=== PATIENT | male | born 1980 | race American Indian/Alaskan Native ===

== ENCOUNTER 2016-06-16 11:18 | Emergency (ER) | payer SELFPAY ==
[2016-06-16] MEDS ORDERED: HALDOL ONE (11:54)
[2016-06-16] MEDS ORDERED: HALDOL PO ONE (11:58)
[2016-06-16 12:00] LABS: Urine Drugs of Abuse Note Disclamer
--- NOTE | 2016-06-16 12:01 | Emergency Department Report ---
ED Psych HPI - General Chief Complaint: Psych Stated Complaint: PARANOIA/HALLUCINATION Time Seen by Provider: 06/16/16 11:57 Source: patient Mode of arrival: Ambulatory - History of Present Illness MD Complaint: feels depressed, altered mental status -: Gradual Associated Psychiatric Symptoms: suicidal ideation History of same: Yes Quality: constant Improves With: none Worsens With: none Context: recent drug abuse Associated Symptoms: insomnia. denies: headache, shortness of breath, nausea, vomiting, syncope Treatments Prior to Arrival: none If Self Harm: admits thoughts of - Related Data Home Medications Medication Instructions Recorded Confirmed Last Taken No Known Home Medications [No 06/09/15 06/16/16 Unknown Reported Home Medications] Allergies Allergy/AdvReac Type Severity Reaction Status Date / Time No Known Allergies Allergy Verified 06/09/15 00:02 ED Review of Systems ROS: Stated complaint: PARANOIA/HALLUCINATION Other details as noted in HPI Comment: Unobtainable due to pts medical conditions ED Past Medical Hx - Past Medical History Previous Medical History?: Yes Hx Hypertension: Yes (NO MEDS) - Surgical History Past Surgical History?: Yes Hx Appendectomy: Yes - Social History Smoking Status: Current Every Day Smoker Substance Use Type: None - Medications Home Medications: Home Medications Medication Instructions Recorded Confirmed Last Taken Type No Known Home Medications [No 06/09/15 06/16/16 Unknown History Reported Home Medications] ED Physical Exam - General Limitations: No Limitations General appearance: alert, in no apparent distress - Head Head exam: Present: atraumatic, normocephalic - Eye Eye exam: Present: normal appearance - ENT ENT exam: Present: mucous membranes moist - Neck Neck exam: Present: normal inspection - Respiratory Respiratory exam: Present: normal lung sounds bilaterally. Absent: respiratory distress - Cardiovascular Cardiovascular Exam: Present: regular rate, normal rhythm. Absent: systolic murmur, diastolic murmur, rubs, gallop - GI/Abdominal GI/Abdominal exam: Present: soft, normal bowel sounds - Rectal Rectal exam: Present: deferred - Extremities Exam Extremities exam: Present: normal inspection - Back Exam Back exam: Present: normal inspection - Neurological Exam Neurological exam: Present: alert, oriented X3 - Psychiatric Psychiatric exam: Present: depressed, suicidal ideation - Skin Skin exam: Present: warm, dry, intact, normal color. Absent: rash ED Course Vital Signs 06/16/16 11:38 Temperature 99 F Pulse Rate 125 H Respiratory 20 Rate Blood Pressure 165/112 O2 Sat by Pulse 100 Oximetry ED Medical Decision Making - Lab Data Result diagrams: 06/16/16 11:57 06/16/16 11:57 Critical care attestation.: If time is entered above; I have spent that time in minutes in the direct care of this critically ill patient, excluding procedure time. ED Disposition Clinical Impression: Psychoses Disposition: DC/TX PSY HOSP/PSY UNIT Is pt being admited?: No Does the pt Need Aspirin: No Condition: Good
[2016-06-16 12:11] LABS: Bacteria,Urine 1+ /HPF (Negative); Bilirubin,Urine NEG (Negative); Blood,Urine NEG (Negative); Ketones,Urine TR mg/dL (Negative); Leukocyte Esterase,Urine TR (Negative); Mucus,Urine 1+ /HPF; Nitrite,Urine NEG (Negative); Urobilinogen,Urine < 2.0 mg/dL (<2.0)
[2016-06-16 12:20] LABS: Basophils % (Auto) 0.1 % (0.0-1.8); Eosinophils % (Auto) 0.4 % (0.0-4.3); Hematocrit 47.5 % (35.5-45.6); Hemoglobin 15.7 gm/dl (11.8-15.2); Mean Corpuscular HGB Conc 33 % (32-34); Mean Corpuscular Hemoglobin 28 pg (28-32); Mean Corpuscular Volume 84 fl (84-94); Platelet Count 222 K/mm3 (140-440); Red Blood Count 5.68 M/mm3 (3.65-5.03); Red Cell Distribution Width 14.1 % (13.2-15.2); White Blood Count 8.5 K/mm3 (4.5-11.0)
[2016-06-16 12:31] LABS: Anion Gap 20 mmol/L; Blood Urea Nitrogen 16 mg/dL (9-20); Calcium 9.9 mg/dL (8.4-10.2); Carbon Dioxide 24 mmol/L (22-30); Chloride 98.2 mmol/L (98-107); Glucose 103 mg/dL (75-100); Potassium 4.1 mmol/L (3.6-5.0); Sodium 138 mmol/L (137-145)
[2016-06-16] MEDS ORDERED: ATIVAN ONE (13:20)
[2016-06-16] MEDS ORDERED: ATIVAN IM ONE (13:28)
[2016-06-16] MEDS ORDERED: GEODON IM ONE ×2 (13:38→13:46)
[2016-06-16] MEDS ORDERED: WATER FOR INJ (PF) 10 ML ONE (13:39)
--- NOTE | 2016-06-16 17:35 | Consultation ---
History of Present Illness - Reason for Consult Consult date: 06/16/16 Reason for consult: psychosis Medications and Allergies Allergies Allergy/AdvReac Type Severity Reaction Status Date / Time No Known Allergies Allergy Verified 06/09/15 00:02 Home Medications Medication Instructions Recorded Confirmed Last Taken Type No Known Home Medications [No 06/09/15 06/16/16 Unknown History Reported Home Medications] Mental Status Exam - Vital signs Last Vital Signs Temp 99 F 06/16/16 11:38 Pulse 91 H 06/16/16 16:36 Resp 24 06/16/16 16:36 BP 120/70 06/16/16 16:36 Pulse Ox 100 06/16/16 16:36 Results Result Diagrams: 06/16/16 11:57 06/16/16 11:57 Abnormal lab results 06/16/16 06/16/16 06/16/16 Range/Units 11:43 11:57 11:57 RBC 5.68 H (3.65-5.03) M/mm3 Hgb 15.7 H (11.8-15.2) gm/dl Hct 47.5 H (35.5-45.6) % Seg Neutrophils % 70.1 H (40.0-70.0) % Glucose 103 H (75-100) mg/dL Urine WBC (Auto) 19.0 H (0.0-6.0) /HPF All other labs normal. 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 Patient further reported in triage, "they are going to cut my head off and putting a bag." Per medical record review, his UDS is positive for methamphetamines. On clinical examination, patient was sedated due to being given a when necessary recently. Most information this assessment was obtained by reviewing medical records. PSYCHIATRIC REVIEW OF SYSTEMS: Depression: unable to obtain [place]: unable to obtain Psychosis: unable to obtain Anxiety/ OCD/ PTSD: unable to obtain Suicidality: unable to obtain Other Self-Injurious Behavior: unable to obtain Violent/ Aggressive Behavior: unable to obtain CURRENT MEDICATIONS: ( Psychiatric and Non-psychiatric ) Denies ALLERGIES: NKDA PAST PSYCHIATRIC HISTORY: ( Prior Treatment, Precipitating Factors, Diagnosis, and Course of Treatment ) Inpatient: none Outpatient: [facility] Prior Suicide Attempts: Unknown Prior Self-Injurious Behaviors: Unknown PAST PSYCHIATRIC MEDICATION TRIALS: Unknown MEDICAL HISTORY: (Chronic and Acute Illnesses, Current Medical Treatment, Recent Hospitalizations) Denies HISTORY OF TRAUMA/ABUSE: unknown DRUG / ALCOHOL ABUSE HISTORY: Substance: Alcohol use about 26 packs every day Methamphetamine daily Cocaine 8 ball every day Detoxification / Withdrawal: SOCIAL HISTORY: (Educational Level, Employment, Support System, Interpersonal Relationships) Currently employed and on probation. States that he has a warrant out for his arrest due to a violation of his probation FAMILY HISTORY: Psychiatric/Substance Abuse Strong family history of substance abuse MENTAL STATUS EXAM: General Appearance: Dressed in hospital gown Sensorium/Consciousness: Asleep and snoring Eye Contact: Asleep Attitude / Behavior: Asleep Psychomotor & Musculoskeletal Activity: Asleep Mood: Unable to assess Affect: Unable to assess Speech / Language: Unable to assess Thought Processes: Unable to assess Thought Content:Unable to assess Perception: Unable to assess Orientation: Unable to assess Concentration/Attention WORLD backwards: Unable to assess Memory Immediate Digit Span (4-4-7-9-3-1-5): Unable to assess Memory Recent (Objects: Lamp, Umbrella, and Telephone) Patient Response: Unable to assess Memory Remote (Name as many presidents as you can starting with current one and going backwards) Patient Response: Unable to assess Judgment What would you do if you smelled smoke in a crowded movie theater?: Unable to assess Insight: Unable to assess Intelligence Vocabulary, general fund of knowledge, educational level: Unable to assess Capacity of ADLs: Unable to assess STRENGTHS: employed, supportive family PSYCHOSOCIAL AND ENVIRONMENTAL STRESSORS: drug abuses ADMITTING DIAGNOSES Psychiatric: Substance-induced psychotic disorder Rule out: Schizophrenia Bipolar disorder and psychotic features Medical: n/a INITIAL PLAN OF CARE AND TREATMENT GOALS: - Continue 1013 - Reevaluate tomorrow for admission to an acute inpatient psychiatric hospital
[2016-06-17] MEDS ORDERED: PERCOCET 5/325 PO ONE (03:22)
--- NOTE | 2016-06-17 07:24 | XRay Report ---
ROUTINE CHEST, TWO VIEWS: HISTORY: chest pain. The trachea, heart, mediastinal contour, lung hurtado and bony thorax are unremarkable. IMPRESSION: Unremarkable chest x-ray.
--- NOTE | 2016-06-17 07:24 | XRay Report ---
LEFT WRIST, 4 views: HISTORY: Left wrist pain. Routine views demonstrate the carpal bones to be well mineralized with well preserved bony mineralization and interosseous joint spaces. The carpal and adjacent articular bones have normal contours. The surrounding soft tissues are unremarkable. A chronic, healed first metacarpal fracture is suspected. IMPRESSION: Left wrist within normal limits.
--- NOTE | 2016-06-17 09:39 | Progress Note ---
Subjective - Reason for Consult Consult date: 06/17/16 Reason for consult: Psychiatry Evaluation - Chief Complaint Chief complaint: "I need help" This is a 35 year-old undomiciled male who presents to [facility] with psychosis. Today patient is calm and cooperative with a circumstantial thought process. He stated that he's paranoid about someone out to "harm" him. The patient stated that he was off "drugs" for awhile, but relapsed because of bad choices (peer pressure). He stated that he need help for his addiction and don't feel well enough to be discharged at this time. He stated, "I don't know if I want to live." He denies HI's, AVH's, depression, or sleep disturbance. Mental Status Exam - Vital signs Last Vital Signs Temp 98.8 F 06/17/16 08:00 Pulse 87 06/17/16 08:00 Resp 17 06/17/16 08:00 BP 144/109 06/17/16 08:00 Pulse Ox 98 06/17/16 08:00 - Exam Narrative exam: MSE: Appearance: calm, cooperative Behavior: good eye contact Speech: regular rate and tone Mood: "I am fine" Affect: congruent to mood Thought Process: circumstantial Thought Content: denies SI/HI's and AVH's, paranoid Motor Activity: sitting up Cognition: A/Ox3 Insight: fair Judgment: fair Assessment and Plan Impression: This is a 35 year-old undomiciled male who presents to [facility] with psychosis. Today patient is calm and cooperative with a circumstantial thought process. He stated that he's paranoid about someone out to harm him. The patient stated that he was off drugs for awhile, but relapsed because of bad choices (peer pressure). He has a bandage/dressing on his left wrist and stated , "I don't know how that happened." He denies SI's and AVH's. Positive methamphetamines. Patient wants psy inpatient services. Recommendation/Plan: Continue 1013 with placement to inpatient psy services. Start Zyprexa 5 mg PO HS for psychosis and Cogentin 0.5 mg PO HS for EPS prevention. Discussed with patient possible metabolic side effects of Zyprexa.
[2016-06-17] MEDS ORDERED: TYLENOL ONE (12:17)
[2016-06-17] MEDS ORDERED: TYLENOL PO ONE (12:23)
[2016-06-17] MEDS ORDERED: ATIVAN PO PRN (14:26)
[2016-06-17] MEDS ORDERED: COGENTIN PO SCH (22:00)
[2016-06-18 06:43] VITALS: BP 147/86
--- NOTE | 2016-06-18 08:19 | Progress Note ---
Subjective - Reason for Consult Consult date: 06/18/16 Reason for consult: Psychiatry Follow-up - Chief Complaint Chief complaint: "I am ready to go" This is a 35 year-old undomiciled male who presents to [facility] with psychosis. Today patient is calm and cooperative today duriong assessment. He stated that he was ready to leave and go to the inpatient setting. He stated that he still feel paranoid at this time. He denies SI/HI's, AVH's, sleep disturbance, or a poor appetite. He stated feeling a "little down" right now, because of his current situation. Patient denies any side effects from psy medications. Mental Status Exam - Vital signs Last Vital Signs Temp 98 F 06/18/16 06:41 Pulse 80 06/18/16 06:41 Resp 18 06/18/16 06:41 BP 147/86 06/18/16 06:41 Pulse Ox 97 06/18/16 06:41 - Exam Narrative exam: MSE: Appearance: calm, cooperative Behavior: good eye contact Speech: regular rate and tone Mood: "okay" Affect: congruent to mood Thought Process: linear Thought Content: denies SI/HI's and AVH's, paranoid Motor Activity: sitting up Cognition: A/Ox3 Insight: fair Judgment: fair Assessment and Plan Impression: This is a 35 year-old undomiciled male who presents to [facility] with psychosis. Today patient is calm and cooperative today duriong assessment. he stated that he was ready to leave and go to the inpatient setting. He stated that he still feel paranoid at this time. He denies SI/HI's, AVH's, sleep disturbance, or a poor appetite. Positive for amphetamines. Recommendation/Plan: Continue 1013 with placement to inpatient psy services. Continue Zyprexa 5 mg PO HS for psychosis and Cogentin 0.5 mg PO HS for EPS prevention. Discussed with patient possible metabolic side effects of Zyprexa.
== END 2016-06-18 18:36 ==
LOC: ED 11:18 → EEVIPCON 11:18 → ED 06-18 18:36
DX: F29 Unspecified psychosis not due to a substance or known physiological condition (principal); I10 Essential (primary) hypertension; F17.200 Nicotine dependence, unspecified, uncomplicated
CPT/HCPCS: 36415; 71020; 73110; 80048; 80307; 81001; 85025; 96372; 99285; G0480; J2060; J3486; 80320

== ENCOUNTER 2016-06-30 19:43 | Inpatient (IN) | payer OTHER ==
[2016-06-30 20:34] LABS: Urine Drugs of Abuse Note Disclamer
[2016-06-30 20:40] LABS: Basophils % (Auto) 0.4 % (0.0-1.8); Eosinophils % (Auto) 0.1 % (0.0-4.3); Hematocrit 50.7 % (35.5-45.6); Hemoglobin 16.6 gm/dl (11.8-15.2); Mean Corpuscular HGB Conc 33 % (32-34); Mean Corpuscular Hemoglobin 28 pg (28-32); Mean Corpuscular Volume 84 fl (84-94); Platelet Count 252 K/mm3 (140-440); Red Blood Count 6.02 M/mm3 (3.65-5.03); Red Cell Distribution Width 14.1 % (13.2-15.2); White Blood Count 10.2 K/mm3 (4.5-11.0)
[2016-06-30 20:47] LABS: Bacteria,Urine 1+ /HPF (Negative); Bilirubin,Urine NEG (Negative); Blood,Urine NEG (Negative); Ketones,Urine TR mg/dL (Negative); Leukocyte Esterase,Urine TR (Negative); Mucus,Urine 3+ /HPF; Nitrite,Urine NEG (Negative)
[2016-06-30 20:53] LABS: Anion Gap 25 mmol/L; Blood Urea Nitrogen 16 mg/dL (9-20); Calcium 10.6 mg/dL (8.4-10.2); Carbon Dioxide 21 mmol/L (22-30); Chloride 98.7 mmol/L (98-107); Glucose 100 mg/dL (75-100); Potassium 3.5 mmol/L (3.6-5.0); Sodium 141 mmol/L (137-145)
[2016-06-30] MEDS ORDERED: ATIVAN PO ONE (21:02)
[2016-06-30] MEDS ORDERED: ATIVAN IV ONE (21:02)
[2016-06-30] MEDS ORDERED: NACL 0.9% 1000 ML 1,000 ML IV ONE (21:32)
--- NOTE | 2016-06-30 21:45 | Emergency Department Report ---
ED Psych HPI - General Chief Complaint: Chest Pain Stated Complaint: ADAMA ROSS Time Seen by Provider: 06/30/16 21:32 Source: EMS Mode of arrival: Ambulatory - History of Present Illness Initial Comments: Patient is a 35-year-old male with history of hypertension, anxiety, drug abuse presenting today because of left-sided chest pain. Patient states that he uses crystal meth and has been using it significantly recently and has become undomiciled in the last few weeks. Denies using any other drugs. He states that he had a cigarette a stranger approximately 3 hours ago and very soon after he started having left-sided chest pain numbness to his tongue and mouth. His also been feeling very anxious. No significant shortness of breath. No nausea or vomiting or diaphoresis. He also admits to suicidal ideation and has thoughts of shooting himself in the head. He apparently had a gun to his head a few days ago but did not go through with it as he felt he had too much to live for. Also complains of visual hallucinations with the tv in the room spinning in his view. - Related Data Previous Rx's Medication Instructions Recorded Last Taken Type Aspirin EC [Aspirin Enteric Coated 81 mg PO QDAY #30 tablet. 07/04/16 Unknown Rx TAB] AtorvaSTATin [Lipitor] 40 mg PO QHS #30 tablet 07/04/16 Unknown Rx Sertraline [Zoloft] 50 mg PO QDAY #30 tablet 07/04/16 Unknown Rx Allergies Allergy/AdvReac Type Severity Reaction Status Date / Time No Known Allergies Allergy Verified 06/09/15 00:02 ED Review of Systems ROS: Stated complaint: ADAMA ROSS Other details as noted in HPI Comment: All other systems reviewed and negative Constitutional: denies: chills, fever Respiratory: denies: cough Cardiovascular: chest pain Gastrointestinal: denies: vomiting Genitourinary: denies: dysuria Skin: denies: rash Psychiatric: anxiety, depression, visual hallucinations, suicidal thoughts ED Past Medical Hx - Past Medical History Previous Medical History?: Yes Hx Hypertension: Yes (NO MEDS) Additional medical history: schizophrenia, anxiety - Surgical History Past Surgical History?: Yes Hx Appendectomy: Yes - Social History Smoking Status: Current Every Day Smoker Substance Use Type: Cocaine, Methamphetamines, Other - Medications Home Medications: Home Medications Medication Instructions Recorded Confirmed Last Taken Type Aspirin EC [Aspirin Enteric Coated 81 mg PO QDAY #30 tablet. 07/04/16 Unknown Rx TAB] AtorvaSTATin [Lipitor] 40 mg PO QHS #30 tablet 07/04/16 Unknown Rx Sertraline [Zoloft] 50 mg PO QDAY #30 tablet 07/04/16 Unknown Rx ED Physical Exam - General Limitations: No Limitations General appearance: alert, in no apparent distress - ENT ENT exam: Present: normal exam - Respiratory Respiratory exam: Present: normal lung sounds bilaterally. Absent: respiratory distress - Cardiovascular Cardiovascular Exam: Present: normal rhythm, tachycardia - GI/Abdominal GI/Abdominal exam: Present: soft. Absent: distended, tenderness - Neurological Exam Neurological exam: Present: alert, oriented X3 - Psychiatric Psychiatric exam: Present: normal affect ED Course Vital Signs 06/30/16 06/30/16 06/30/16 19:55 20:28 20:33 Temperature 98.6 F Pulse Rate 133 H 122 H Pulse Rate [ Left Arm] Respiratory 26 H 26 H 26 H Rate Respiratory Rate [Left Arm] Blood Pressure 116/62 Blood Pressure [Left Arm] Blood Pressure 150/97 [Left] Blood Pressure [Right] O2 Sat by Pulse 96 99 Oximetry O2 Sat by Pulse Oximetry [Left Arm] 06/30/16 07/01/16 07/01/16 22:01 00:10 08:51 Temperature 97.5 F L Pulse Rate 105 H 92 H 63 Pulse Rate [ Left Arm] Respiratory 18 18 16 Rate Respiratory Rate [Left Arm] Blood Pressure Blood Pressure [Left Arm] Blood Pressure 178/96 148/88 [Left] Blood Pressure 125/85 [Right] O2 Sat by Pulse 99 100 100 Oximetry O2 Sat by Pulse Oximetry [Left Arm] 07/01/16 07/01/16 07/01/16 14:18 14:20 14:26 Temperature Pulse Rate 72 85 77 Pulse Rate [ Left Arm] Respiratory 12 16 Rate Respiratory Rate [Left Arm] Blood Pressure 138/83 Blood Pressure [Left Arm] Blood Pressure [Left] Blood Pressure 138/83 [Right] O2 Sat by Pulse 100 100 Oximetry O2 Sat by Pulse Oximetry [Left Arm] 07/01/16 07/01/16 07/01/16 14:30 14:45 15:00 Temperature Pulse Rate 84 83 77 Pulse Rate [ 86 Left Arm] Respiratory 18 17 13 Rate Respiratory 18 Rate [Left Arm] Blood Pressure 133/88 130/82 138/87 Blood Pressure 130/82 [Left Arm] Blood Pressure [Left] Blood Pressure [Right] O2 Sat by Pulse 99 99 100 Oximetry O2 Sat by Pulse 100 Oximetry [Left Arm] 07/01/16 07/01/16 07/01/16 15:04 15:15 15:30 Temperature Pulse Rate 78 82 Pulse Rate [ 81 Left Arm] Respiratory 13 17 Rate Respiratory 18 Rate [Left Arm] Blood Pressure 143/84 136/86 Blood Pressure 147/89 [Left Arm] Blood Pressure [Left] Blood Pressure [Right] O2 Sat by Pulse 99 100 Oximetry O2 Sat by Pulse 100 Oximetry [Left Arm] 07/01/16 07/01/16 07/01/16 15:45 16:00 16:15 Temperature Pulse Rate 81 81 74 Pulse Rate [ Left Arm] Respiratory 10 L 10 L 11 L Rate Respiratory Rate [Left Arm] Blood Pressure 145/75 144/86 141/84 Blood Pressure [Left Arm] Blood Pressure [Left] Blood Pressure [Right] O2 Sat by Pulse 100 100 100 Oximetry O2 Sat by Pulse Oximetry [Left Arm] 07/01/16 07/01/16 07/01/16 16:30 16:42 16:45 Temperature Pulse Rate 79 71 Pulse Rate [ Left Arm] Respiratory 16 18 16 Rate Respiratory Rate [Left Arm] Blood Pressure 146/85 172/101 Blood Pressure [Left Arm] Blood Pressure [Left] Blood Pressure [Right] O2 Sat by Pulse 100 100 Oximetry O2 Sat by Pulse Oximetry [Left Arm] 07/01/16 07/01/16 07/01/16 17:00 17:15 17:30 Temperature Pulse Rate 69 81 76 Pulse Rate [ Left Arm] Respiratory 12 20 19 Rate Respiratory Rate [Left Arm] Blood Pressure 127/85 131/86 120/87 Blood Pressure [Left Arm] Blood Pressure [Left] Blood Pressure [Right] O2 Sat by Pulse 99 95 93 Oximetry O2 Sat by Pulse Oximetry [Left Arm] 07/01/16 07/01/16 07/01/16 17:45 18:00 18:08 Temperature Pulse Rate 71 81 77 Pulse Rate [ Left Arm] Respiratory 16 19 20 Rate Respiratory Rate [Left Arm] Blood Pressure 140/86 138/103 138/103 Blood Pressure [Left Arm] Blood Pressure [Left] Blood Pressure [Right] O2 Sat by Pulse 100 100 100 Oximetry O2 Sat by Pulse Oximetry [Left Arm] 07/01/16 07/01/16 07/01/16 18:15 18:30 18:45 Temperature Pulse Rate 76 63 76 Pulse Rate [ Left Arm] Respiratory 19 16 19 Rate Respiratory Rate [Left Arm] Blood Pressure 135/87 142/80 134/83 Blood Pressure [Left Arm] Blood Pressure [Left] Blood Pressure [Right] O2 Sat by Pulse 100 100 100 Oximetry O2 Sat by Pulse Oximetry [Left Arm] 07/01/16 07/01/16 07/01/16 19:01 19:15 19:30 Temperature Pulse Rate 66 70 63 Pulse Rate [ Left Arm] Respiratory 15 19 19 Rate Respiratory Rate [Left Arm] Blood Pressure 126/83 126/83 129/86 Blood Pressure [Left Arm] Blood Pressure [Left] Blood Pressure [Right] O2 Sat by Pulse 100 100 100 Oximetry O2 Sat by Pulse Oximetry [Left Arm] 07/01/16 07/01/16 07/01/16 19:45 20:00 20:15 Temperature Pulse Rate Pulse Rate [ Left Arm] Respiratory Rate Respiratory Rate [Left Arm] Blood Pressure 129/86 124/84 124/84 Blood Pressure [Left Arm] Blood Pressure [Left] Blood Pressure [Right] O2 Sat by Pulse 100 100 100 Oximetry O2 Sat by Pulse Oximetry [Left Arm] 07/01/16 07/01/16 07/01/16 20:30 20:45 21:24 Temperature Pulse Rate 74 Pulse Rate [ Left Arm] Respiratory 17 Rate Respiratory Rate [Left Arm] Blood Pressure 123/75 123/75 Blood Pressure [Left Arm] Blood Pressure [Left] Blood Pressure [Right] O2 Sat by Pulse 100 100 100 Oximetry O2 Sat by Pulse Oximetry [Left Arm] ED Medical Decision Making - Lab Data Result diagrams: 07/02/16 03:24 07/02/16 03:24 - Medical Decision Making IV, labs, ekg, cxr, ativan, IVF labs unremarkable cxr negative second troponin negative medically cleared but patient is suicidal so placed on 1013 Critical care attestation.: If time is entered above; I have spent that time in minutes in the direct care of this critically ill patient, excluding procedure time. ED Disposition Clinical Impression: Chest pain, Suicidal ideation, Left-sided weakness Disposition: OP ADMITTED IP TO THIS HOSP Is pt being admited?: No Does the pt Need Aspirin: No Condition: Good
--- NOTE | 2016-06-30 22:41 | XRay Report ---
FINAL REPORT EXAM: XR CHEST 1V AP HISTORY: cp TECHNIQUE: Single-view chest PRIORS: None. FINDINGS: No focal consolidations are seen in the lungs.The cardiomediastinal silhouette is within normal limits for size and contour. No acute osseous abnormality is identified. IMPRESSION: 1. No definite radiographic evidence of acute cardiopulmonary disease.
[2016-06-30] MEDS ORDERED: MOTRIN PO ONE (22:51)
--- NOTE | 2016-07-01 12:26 | Emergency Department Report ---
ED General Adult HPI - General Chief complaint: Psych Stated complaint: ADAMA ROSS Time Seen by Provider: 06/30/16 21:32 Source: patient, RN notes reviewed, old records reviewed Mode of arrival: Ambulatory Limitations: No Limitations - History of Present Illness Initial comments: The patient is now complaining of left arm weakness and left leg weakness, as well as visual field deficit in the left eye. He thinks his symptoms started at 11:15 but is not certain. He denies hematemesis, bright red blood per rectum , recent surgeries. On examination, there is 5/5 strength right upper extremity, right lower extremity, 4/5 strength left upper extremity, left lower extremity, and a lateral visual field cut. There are no facial droop, the tongue is midline, facial sensation is intact to light touch in the bilateral V1, V2, V3 distribution. The patient is also complaining of chest pain. A code stroke is called overhead. A noncontrast CT scan of the brain is interpreted as negative. The patient is interviewed by the stroke neurologist, Dr. Brandy Triana, who recommended TPA. The risks, benefits, alternatives were discussed with the patient. The patient understands that without TPA, he risks permanent disability, weakness, loss of vision in the left eye, lack of quality of life. He is able to articulate these in his own words. The patient is refusing TPA at this time as he is concerned about the risks. He specifically concerned about the risk of a fatal bleed. He is able to articulate this in his own words. He certainly exhibits decision-making capacity regarding the TPA, and there is no family available at this time. Laboratory studies were delayed secondary to technical issues in the lab. Currently awaiting basic metabolic panel. I appreciate that the patient had a normal basic metabolic panel yesterday, but given known history of methamphetamine use, I'm reluctant to empirically give him an IV contrast bolus without repeat basic metabolic panel. Time 0 is being considered 11:15 AM. -: Sudden Location: left, upper extremity, lower extremity Severity scale (0 -10): 5 Consistency: constant Improves with: none Worsens with: none Associated Symptoms: chest pain, weakness - Related Data Home Medications Medication Instructions Recorded Confirmed Last Taken No Known Home Medications [No 06/09/15 06/30/16 Unknown Reported Home Medications] Allergies Allergy/AdvReac Type Severity Reaction Status Date / Time No Known Allergies Allergy Verified 06/09/15 00:02 ED Review of Systems ROS: Stated complaint: MH EVAL Other details as noted in HPI Constitutional: denies: fever Eyes: denies: vision change ENT: denies: epistaxis Respiratory: denies: cough Cardiovascular: chest pain Gastrointestinal: denies: abdominal pain Genitourinary: as per HPI Musculoskeletal: as per HPI Skin: as per HPI Neurological: as per HPI, weakness ED Past Medical Hx - Past Medical History Previous Medical History?: Yes Hx Hypertension: Yes (NO MEDS) Additional medical history: schizophrenia, anxiety - Surgical History Past Surgical History?: Yes Hx Appendectomy: Yes - Social History Smoking Status: Current Every Day Smoker Substance Use Type: Cocaine, Methamphetamines, Other - Medications Home Medications: Home Medications Medication Instructions Recorded Confirmed Last Taken Type No Known Home Medications [No 06/09/15 06/30/16 Unknown History Reported Home Medications] ED Physical Exam - General Limitations: No Limitations, Physical Limitation General appearance: alert, in no apparent distress - Head Head exam: Present: atraumatic, normocephalic - Eye Eye exam: Present: normal appearance, EOMI, other (visual field cut noted left lateral superior, left lateral inferior). Absent: nystagmus - ENT ENT exam: Present: normal exam, normal orophraynx, mucous membranes moist, normal external ear exam - Neck Neck exam: Present: normal inspection, full ROM. Absent: tenderness, meningismus - Respiratory Respiratory exam: Present: normal lung sounds bilaterally. Absent: respiratory distress, wheezes, rales, rhonchi, stridor, chest wall tenderness, accessory muscle use, decreased breath sounds, prolonged expiratory - Cardiovascular Cardiovascular Exam: Present: normal rhythm, tachycardia, normal heart sounds. Absent: systolic murmur, diastolic murmur, rubs, gallop - GI/Abdominal GI/Abdominal exam: Present: soft, normal bowel sounds - Rectal Rectal exam: Present: deferred - Extremities Exam Extremities exam: Present: normal inspection, full ROM, normal capillary refill. Absent: pedal edema, joint swelling, calf tenderness - Back Exam Back exam: Present: normal inspection, full ROM. Absent: tenderness, CVA tenderness (R), CVA tenderness (L), muscle spasm, paraspinal tenderness, vertebral tenderness - Neurological Exam Neurological exam: Present: alert (patient is alert to name, year, month, location.), oriented X3, motor sensory deficit (there is 4/5 strength left upper extremity, left lower extremity. He was decreased sensation to light touch left upper extremity, left lower extremity.), other (5/5 strength right upper extremity, right lower extremity. Sensation intact to light touch right upper extremity, right lower extremity.) - Psychiatric Psychiatric exam: Present: normal affect, normal mood - Skin Skin exam: Present: warm, dry, intact, normal color. Absent: rash ED Course Vital Signs 06/30/16 06/30/16 06/30/16 19:55 20:28 20:33 Temperature 98.6 F Pulse Rate 133 H 122 H Pulse Rate [ Left Arm] Respiratory 26 H 26 H 26 H Rate Respiratory Rate [Left Arm] Blood Pressure 116/62 Blood Pressure [Left Arm] Blood Pressure 150/97 [Left] Blood Pressure [Right] O2 Sat by Pulse 96 99 Oximetry O2 Sat by Pulse Oximetry [Left Arm] 06/30/16 07/01/16 07/01/16 22:01 00:10 08:51 Temperature 97.5 F L Pulse Rate 105 H 92 H 63 Pulse Rate [ Left Arm] Respiratory 18 18 16 Rate Respiratory Rate [Left Arm] Blood Pressure Blood Pressure [Left Arm] Blood Pressure 178/96 148/88 [Left] Blood Pressure 125/85 [Right] O2 Sat by Pulse 99 100 100 Oximetry O2 Sat by Pulse Oximetry [Left Arm] 07/01/16 07/01/16 07/01/16 14:18 14:20 14:26 Temperature Pulse Rate 72 85 77 Pulse Rate [ Left Arm] Respiratory 12 16 Rate Respiratory Rate [Left Arm] Blood Pressure 138/83 Blood Pressure [Left Arm] Blood Pressure [Left] Blood Pressure 138/83 [Right] O2 Sat by Pulse 100 100 Oximetry O2 Sat by Pulse Oximetry [Left Arm] 07/01/16 07/01/16 07/01/16 14:30 14:45 15:00 Temperature Pulse Rate 84 83 77 Pulse Rate [ 86 Left Arm] Respiratory 18 17 13 Rate Respiratory 18 Rate [Left Arm] Blood Pressure 133/88 130/82 138/87 Blood Pressure 130/82 [Left Arm] Blood Pressure [Left] Blood Pressure [Right] O2 Sat by Pulse 99 99 100 Oximetry O2 Sat by Pulse 100 Oximetry [Left Arm] 07/01/16 07/01/1607/01/17 15:04 15:15 15:30 Temperature Pulse Rate 78 82 Pulse Rate [ 81 Left Arm] Respiratory 13 17 Rate Respiratory 18 Rate [Left Arm] Blood Pressure 143/84 136/86 Blood Pressure 147/89 [Left Arm] Blood Pressure [Left] Blood Pressure [Right] O2 Sat by Pulse 99 100 Oximetry O2 Sat by Pulse 100 Oximetry [Left Arm] 07/01/16 07/01/16 07/01/16 15:45 16:00 16:15 Temperature Pulse Rate 81 81 74 Pulse Rate [ Left Arm] Respiratory 10 L 10 L 11 L Rate Respiratory Rate [Left Arm] Blood Pressure 145/75 144/86 141/84 Blood Pressure [Left Arm] Blood Pressure [Left] Blood Pressure [Right] O2 Sat by Pulse 100 100 100 Oximetry O2 Sat by Pulse Oximetry [Left Arm] 07/01/16 07/01/16 07/01/16 16:30 16:42 16:45 Temperature Pulse Rate 79 71 Pulse Rate [ Left Arm] Respiratory 16 18 16 Rate Respiratory Rate [Left Arm] Blood Pressure 146/85 172/101 Blood Pressure [Left Arm] Blood Pressure [Left] Blood Pressure [Right] O2 Sat by Pulse 100 100 Oximetry O2 Sat by Pulse Oximetry [Left Arm] 07/01/16 07/01/16 07/01/16 17:00 17:15 17:30 Temperature Pulse Rate 69 81 76 Pulse Rate [ Left Arm] Respiratory 12 20 19 Rate Respiratory Rate [Left Arm] Blood Pressure 127/85 131/86 120/87 Blood Pressure [Left Arm] Blood Pressure [Left] Blood Pressure [Right] O2 Sat by Pulse 99 95 93 Oximetry O2 Sat by Pulse Oximetry [Left Arm] 07/01/16 07/01/16 07/01/16 17:45 18:00 18:08 Temperature Pulse Rate 71 81 77 Pulse Rate [ Left Arm] Respiratory 16 19 20 Rate Respiratory Rate [Left Arm] Blood Pressure 140/86 138/103 138/103 Blood Pressure [Left Arm] Blood Pressure [Left] Blood Pressure [Right] O2 Sat by Pulse 100 100 100 Oximetry O2 Sat by Pulse Oximetry [Left Arm] 07/01/16 07/01/16 07/01/16 18:15 18:30 18:45 Temperature Pulse Rate 76 63 76 Pulse Rate [ Left Arm] Respiratory 19 16 19 Rate Respiratory Rate [Left Arm] Blood Pressure 135/87 142/80 134/83 Blood Pressure [Left Arm] Blood Pressure [Left] Blood Pressure [Right] O2 Sat by Pulse 100 100 100 Oximetry O2 Sat by Pulse Oximetry [Left Arm] 07/01/16 07/01/16 07/01/16 19:01 19:15 19:30 Temperature Pulse Rate 66 70 63 Pulse Rate [ Left Arm] Respiratory 15 19 19 Rate Respiratory Rate [Left Arm] Blood Pressure 126/83 126/83 129/86 Blood Pressure [Left Arm] Blood Pressure [Left] Blood Pressure [Right] O2 Sat by Pulse 100 100 100 Oximetry O2 Sat by Pulse Oximetry [Left Arm] 07/01/16 07/01/16 07/01/16 19:45 20:00 20:15 Temperature Pulse Rate Pulse Rate [ Left Arm] Respiratory Rate Respiratory Rate [Left Arm] Blood Pressure 129/86 124/84 124/84 Blood Pressure [Left Arm] Blood Pressure [Left] Blood Pressure [Right] O2 Sat by Pulse 100 100 100 Oximetry O2 Sat by Pulse Oximetry [Left Arm] 07/01/16 20:30 Temperature Pulse Rate Pulse Rate [ Left Arm] Respiratory Rate Respiratory Rate [Left Arm] Blood Pressure 123/75 Blood Pressure [Left Arm] Blood Pressure [Left] Blood Pressure [Right] O2 Sat by Pulse 100 Oximetry O2 Sat by Pulse Oximetry [Left Arm] - Reevaluation(s) Reevaluation #1: 07/01/16 13:47 Differential diagnosis: Transient ischemic attack, conversion disorder, carotid dissection, thrombus, multiple sclerosis This is a patient who is currently under 1013 or methamphetamine use, who complained of chest pain and left arm weakness, left leg weakness. He was deemed to be a TPA candidate, but is refusing tPA at this time. Extensive discussion had with the patient regarding risks, benefits, alternatives. The patient is able to endorse that he does not want the medication secondary to the risk of bleeding. In this capacity, the patient is able to articulate the risks, benefits, alternatives. As the patient is refusing this medication, I cannot give it to him as he is adamantly refusing medication, and in my professional opinion exhibits decision-making capacity. There is a delay in acquiring the CT angiogram because there is delay in obtaining basic metabolic panel. 07/01/16 13:49 07/01/16 21:09 07/01/16 21:10 Reevaluation #2: 07/01/16 15:08 The patient was seen and evaluated independently by Rui Shrestha, [facility] , who agreed that patient exhibits decision making capacity. Ultimately, the patient agreed to receive TPA, but because it took him a very long time to make the decision, there was delay in administering TPA was administered at 14:20, the patient was initially adamantly refusing. Delay in TPA secondary to patient refusing medication The noncontrast CT scan of brain was interpreted as negative, and the CT imaging of the head and neck angio was interpreted as negative The patient's blood pressure has been well controlled thus far, a page has been placed to critical care to arrange transfer to the ICU, and the case was presented to the Hospital physician, Dr. Celis graciously accepts the patient to his service. Aspirin will be withheld given the patient just received TPA. Of note, I think aortic dissection is very unlikely, given unremarkable chest x-ray, and normal pulses in 4 extremities. The case is presented to Dr. Rao, the ICU physician, he authorizes triaged to the ICU 07/01/16 15:09 07/01/16 21:09 07/01/16 21:10 ED Medical Decision Making - Lab Data Result diagrams: 07/01/16 12:24 07/01/16 12:25 Vital Signs 06/30/16 06/30/16 06/30/16 19:55 20:28 20:33 Temperature 98.6 F Pulse Rate 133 H 122 H Respiratory 26 H 26 H 26 H Rate Blood Pressure 116/62 Blood Pressure 150/97 [Left] Blood Pressure [Right] O2 Sat by Pulse 96 99 Oximetry 06/30/16 07/01/16 07/01/16 22:01 00:10 08:51 Temperature 97.5 F L Pulse Rate 105 H 92 H 63 Respiratory 18 18 16 Rate Blood Pressure Blood Pressure 178/96 148/88 [Left] Blood Pressure 125/85 [Right] O2 Sat by Pulse 99 100 100 Oximetry Lab Results 06/30/16 06/30/16 06/30/16 Range/Units 20:00 20:00 20:00 WBC 10.2 (4.5-11.0) K/mm3 RBC 6.02 H (3.65-5.03) M/mm3 Hgb 16.6 H (11.8-15.2) gm/dl Hct 50.7 H (35.5-45.6) % MCV 84 (84-94) fl MCH 28 (28-32) pg MCHC 33 (32-34) % RDW 14.1 (13.2-15.2) % Plt Count 252 (140-440) K/mm3 Lymph % (Auto) 32.7 (13.4-35.0) % [place] % (Auto) 8.5 H (0.0-7.3) % Eos % (Auto) 0.1 (0.0-4.3) % Baso % (Auto) 0.4 (0.0-1.8) % Lymph # 3.3 (1.2-5.4) K/mm3 [place] # 0.9 H (0.0-0.8) K/mm3 Eos # 0.0 (0.0-0.4) K/mm3 Baso # 0.0 (0.0-0.1) K/mm3 Seg Neutrophils % 58.3 (40.0-70.0) % Seg Neutrophils # 6.0 (1.8-7.7) K/mm3 PT (12.2-14.9) Sec. INR (0.87-1.13) APTT (24.2-36.6) Sec. Sodium 141 (137-145) mmol/L Potassium 3.5 L (3.6-5.0) mmol/L Chloride 98.7 (98-107) mmol/L Carbon Dioxide 21 L (22-30) mmol/L Anion Gap 25 mmol/L BUN 16 (9-20) mg/dL Creatinine 1.3 (0.8-1.5) mg/dL Estimated GFR > 60 ml/min BUN/Creatinine Ratio 12.30 % Glucose 100 (75-100) mg/dL Calcium 10.6 H (8.4-10.2) mg/dL Troponin T < 0.010 (0.00-0.029) ng/mL Urine Color Yellow (Yellow) Urine Turbidity Clear (Clear) Urine pH 5.0 (5.0-7.0) Ur Specific [place] 1.029 (1.003-1.030) Urine Protein 30 mg/dl (Negative) mg/dL Urine Glucose (UA) Neg (Negative) mg/dL Urine Ketones Tr (Negative) mg/dL Urine Blood Neg (Negative) Urine Nitrite Neg (Negative) Urine Bilirubin Neg (Negative) Urine Urobilinogen 2.0 (<2.0) mg/dL Ur Leukocyte Esterase Tr (Negative) Urine WBC (Auto) 13.0 H (0.0-6.0) /HPF Urine RBC (Auto) 3.0 (0.0-6.0) /HPF U Epithel Cells (Auto) 2.0 (0-13.0) /HPF Urine Bacteria (Auto) 1+ (Negative) /HPF Urine Mucus 3+ /HPF Salicylates (2.8-20.0) mg/dL Urine Opiates Screen Urine Methadone Screen Acetaminophen (10.0-30.0) ug/mL Ur Barbiturates Screen Ur Phencyclidine Scrn Ur Amphetamines Screen U Benzodiazepines Scrn Urine Cocaine Screen U Marijuana (THC) Screen Drugs of Abuse Note Plasma/Serum Alcohol (0-0.07) gm% 06/30/16 06/30/16 06/30/16 Range/Units 20:00 20:00 20:00 WBC (4.5-11.0) K/mm3 RBC (3.65-5.03) M/mm3 Hgb (11.8-15.2) gm/dl Hct (35.5-45.6) % MCV (84-94) fl MCH (28-32) pg MCHC (32-34) % RDW (13.2-15.2) % Plt Count (140-440) K/mm3 Lymph % (Auto) (13.4-35.0) % [place] % (Auto) (0.0-7.3) % Eos % (Auto) (0.0-4.3) % Baso % (Auto) (0.0-1.8) % Lymph # (1.2-5.4) K/mm3 [place] # (0.0-0.8) K/mm3 Eos # (0.0-0.4) K/mm3 Baso # (0.0-0.1) K/mm3 Seg Neutrophils % (40.0-70.0) % Seg Neutrophils # (1.8-7.7) K/mm3 PT (12.2-14.9) Sec. INR (0.87-1.13) APTT (24.2-36.6) Sec. Sodium (137-145) mmol/L Potassium (3.6-5.0) mmol/L Chloride (98-107) mmol/L Carbon Dioxide (22-30) mmol/L Anion Gap mmol/L BUN (9-20) mg/dL Creatinine (0.8-1.5) mg/dL Estimated GFR ml/min BUN/Creatinine Ratio % Glucose (75-100) mg/dL Calcium (8.4-10.2) mg/dL Troponin T (0.00-0.029) ng/mL Urine Color (Yellow) Urine Turbidity (Clear) Urine pH (5.0-7.0) Ur Specific [place] (1.003-1.030) Urine Protein (Negative) mg/dL Urine Glucose (UA) (Negative) mg/dL Urine Ketones (Negative) mg/dL Urine Blood (Negative) Urine Nitrite (Negative) Urine Bilirubin (Negative) Urine Urobilinogen (<2.0) mg/dL Ur Leukocyte Esterase (Negative) Urine WBC (Auto) (0.0-6.0) /HPF Urine RBC (Auto) (0.0-6.0) /HPF U Epithel Cells (Auto) (0-13.0) /HPF Urine Bacteria (Auto) (Negative) /HPF Urine Mucus /HPF Salicylates < 0.3 L (2.8-20.0) mg/dL Urine Opiates Screen Presumptive negative Urine Methadone Screen Presumptive negative Acetaminophen < 15.0 (10.0-30.0) ug/mL Ur Barbiturates Screen Presumptive negative Ur Phencyclidine Scrn Presumptive negative Ur Amphetamines Screen Presumptive positive U Benzodiazepines Scrn Presumptive negative Urine Cocaine Screen Presumptive negative U Marijuana (THC) Screen Presumptive negative Drugs of Abuse Note Disclamer Plasma/Serum Alcohol (0-0.07) gm% 06/30/16 07/01/16 07/01/16 Range/Units 20:00 01:03 12:24 WBC 6.0 (4.5-11.0) K/mm3 RBC 5.86 H (3.65-5.03) M/mm3 Hgb 16.3 H (11.8-15.2) gm/dl Hct 49.2 H (35.5-45.6) % MCV 84 (84-94) fl MCH 28 (28-32) pg MCHC 33 (32-34) % RDW 13.8 (13.2-15.2) % Plt Count 194 (140-440) K/mm3 Lymph % (Auto) (13.4-35.0) % [place] % (Auto) (0.0-7.3) % Eos % (Auto) (0.0-4.3) % Baso % (Auto) (0.0-1.8) % Lymph # (1.2-5.4) K/mm3 [place] # (0.0-0.8) K/mm3 Eos # (0.0-0.4) K/mm3 Baso # (0.0-0.1) K/mm3 Seg Neutrophils % (40.0-70.0) % Seg Neutrophils # (1.8-7.7) K/mm3 PT (12.2-14.9) Sec. INR (0.87-1.13) APTT (24.2-36.6) Sec. Sodium (137-145) mmol/L Potassium (3.6-5.0) mmol/L Chloride (98-107) mmol/L Carbon Dioxide (22-30) mmol/L Anion Gap mmol/L BUN (9-20) mg/dL Creatinine (0.8-1.5) mg/dL Estimated GFR ml/min BUN/Creatinine Ratio % Glucose (75-100) mg/dL Calcium (8.4-10.2) mg/dL Troponin T < 0.010 (0.00-0.029) ng/mL Urine Color (Yellow) Urine Turbidity (Clear) Urine pH (5.0-7.0) Ur Specific [place] (1.003-1.030) Urine Protein (Negative) mg/dL Urine Glucose (UA) (Negative) mg/dL Urine Ketones (Negative) mg/dL Urine Blood (Negative) Urine Nitrite (Negative) Urine Bilirubin (Negative) Urine Urobilinogen (<2.0) mg/dL Ur Leukocyte Esterase (Negative) Urine WBC (Auto) (0.0-6.0) /HPF Urine RBC (Auto) (0.0-6.0) /HPF U Epithel Cells (Auto) (0-13.0) /HPF Urine Bacteria (Auto) (Negative) /HPF Urine Mucus /HPF Salicylates (2.8-20.0) mg/dL Urine Opiates Screen Urine Methadone Screen Acetaminophen (10.0-30.0) ug/mL Ur Barbiturates Screen Ur Phencyclidine Scrn Ur Amphetamines Screen U Benzodiazepines Scrn Urine Cocaine Screen U Marijuana (THC) Screen Drugs of Abuse Note Plasma/Serum Alcohol < 0.01 (0-0.07) gm% 07/01/16 07/01/16 Range/Units 12:25 12:25 WBC (4.5-11.0) K/mm3 RBC (3.65-5.03) M/mm3 Hgb (11.8-15.2) gm/dl Hct (35.5-45.6) % MCV (84-94) fl MCH (28-32) pg MCHC (32-34) % RDW (13.2-15.2) % Plt Count (140-440) K/mm3 Lymph % (Auto) (13.4-35.0) % [place] % (Auto) (0.0-7.3) % Eos % (Auto) (0.0-4.3) % Baso % (Auto) (0.0-1.8) % Lymph # (1.2-5.4) K/mm3 [place] # (0.0-0.8) K/mm3 Eos # (0.0-0.4) K/mm3 Baso # (0.0-0.1) K/mm3 Seg Neutrophils % (40.0-70.0) % Seg Neutrophils # (1.8-7.7) K/mm3 PT 14.9 (12.2-14.9) Sec. INR 1.18 H (0.87-1.13) APTT 27.6 (24.2-36.6) Sec. Sodium 144 (137-145) mmol/L Potassium 3.8 (3.6-5.0) mmol/L Chloride 103.4 (98-107) mmol/L Carbon Dioxide 26 (22-30) mmol/L Anion Gap 18 mmol/L BUN 16 (9-20) mg/dL Creatinine 1.1 (0.8-1.5) mg/dL Estimated GFR > 60 ml/min BUN/Creatinine Ratio 14.54 % Glucose 78 (75-100) mg/dL Calcium 9.6 (8.4-10.2) mg/dL Troponin T (0.00-0.029) ng/mL Urine Color (Yellow) Urine Turbidity (Clear) Urine pH (5.0-7.0) Ur Specific [place] (1.003-1.030) Urine Protein (Negative) mg/dL Urine Glucose (UA) (Negative) mg/dL Urine Ketones (Negative) mg/dL Urine Blood (Negative) Urine Nitrite (Negative) Urine Bilirubin (Negative) Urine Urobilinogen (<2.0) mg/dL Ur Leukocyte Esterase (Negative) Urine WBC (Auto) (0.0-6.0) /HPF Urine RBC (Auto) (0.0-6.0) /HPF U Epithel Cells (Auto) (0-13.0) /HPF Urine Bacteria (Auto) (Negative) /HPF Urine Mucus /HPF Salicylates (2.8-20.0) mg/dL Urine Opiates Screen Urine Methadone Screen Acetaminophen (10.0-30.0) ug/mL Ur Barbiturates Screen Ur Phencyclidine Scrn Ur Amphetamines Screen U Benzodiazepines Scrn Urine Cocaine Screen U Marijuana (THC) Screen Drugs of Abuse Note Plasma/Serum Alcohol (0-0.07) gm% - EKG Data -: EKG Interpreted by [place] EKG shows normal: sinus rhythm, axis, QRS complexes - EKG Data 07/01/16 13:50 normal sinus, 92 bpm, QTC 492 ms, nonspecific abnormality, motion artifact, not morphologically consistent with STEMI. - Radiology Data Radiology results: report reviewed, image reviewed X-ray the chest is negative. Noncontrast CT scan of the brain is negative. As per verbal report radiology, Dr. Wing, CT angiogram of the head and neck negative for thrombus/dissection. Critical Care Time: Yes Critical care time in (mins) excluding proc time.: 90 Critical care attestation.: If time is entered above; I have spent that time in minutes in the direct care of this critically ill patient, excluding procedure time. Critical Care Time: Critical care time includes multiple bedside evaluations, interpretation of laboratory studies, radiology studies, multiple discussions with multiple consulting services, including stroke neurology, hospital medicine, critical care, mental health. This does not include procedure time. ED Disposition Clinical Impression: Chest pain, Suicidal ideation, Left-sided weakness Disposition: OP ADMITTED IP TO THIS HOSP Is pt being admited?: Yes Condition: Good
--- NOTE | 2016-07-01 12:44 | Consultation ---
History of Present Illness - Reason for Consult Consult date: 07/01/16 Reason for consult: Mental Health Evaluation Requesting physician: FRANCISCO PHILLIPS - Chief Complaint Chief complaint: "It's the drugs" - History of Present Psychiatric Illness Patient is a 35-year-old male with history of hypertension, anxiety, drug abuse presenting today because of left-sided chest pain. Today patient is calm and cooperative during assessment. He stated that he get "psychotic" when he uses street drugs. He stated since he was discharged from [facility] he has been on a "meth binge." Patient admits to holding a gun to his head a couple days ago, because he wanted to kill himself. He stated that life is getting the best of him ( from spouse and financial problems). He describe his depression symptoms to be low energy, sad, and hopelessness. He rate his depression 10/10, with 10 being the worse. He was adamant about wanting help for his depression. He denies SI/HI's and AVH's. He stated that his sleep was erratic before coming to [facility]. He denies alcohol consumption (etoh). Patient positive for amphetamines. Medications and Allergies Allergies Allergy/AdvReac Type Severity Reaction Status Date / Time No Known Allergies Allergy Verified 06/09/15 00:02 Home Medications Medication Instructions Recorded Confirmed Last Taken Type No Known Home Medications [No 06/09/15 06/30/16 Unknown History Reported Home Medications] Past psychiatric history - Past Medical History Past Medical History: No medical history Past Surgical History: No surgical history - past Psychiatric treatment and history psychiatric treatment history: Patient been to [facility]. He denies family psy hx. - Social History Social history: other (Live with girlfriend, seperated from ) Mental Status Exam - Vital signs Last Vital Signs Temp 97.5 F L 07/01/16 08:51 Pulse 63 07/01/16 08:51 Resp 16 07/01/16 08:51 BP 125/85 07/01/16 08:51 Pulse Ox 100 07/01/16 08:51 - Exam Narrative exam: ROS (+) depression, (-) psychosis MSE: Appearance: calm, cooperative Behavior: good eye contact Speech: regular rate and tone Mood: "I am fine" Affect: congruent to mood Thought Process: linearl Thought Content: denies SI/HI's and AVH's Motor Activity: lying down in bed Cognition: A/Ox3 Insight: fair Judgment: limited Results Result Diagrams: 07/01/16 12:24 07/01/16 12:25 Abnormal lab results 06/30/16 06/30/16 06/30/16 Range/Units 20:00 20:00 20:00 RBC 6.02 H (3.65-5.03) M/mm3 Hgb 16.6 H (11.8-15.2) gm/dl Hct 50.7 H (35.5-45.6) % [place] % (Auto) 8.5 H (0.0-7.3) % [place] # 0.9 H (0.0-0.8) K/mm3 Potassium 3.5 L (3.6-5.0) mmol/L Carbon Dioxide 21 L (22-30) mmol/L Calcium 10.6 H (8.4-10.2) mg/dL Urine WBC (Auto) 13.0 H (0.0-6.0) /HPF Salicylates (2.8-20.0) mg/dL 06/30/16 Range/Units 20:00 RBC (3.65-5.03) M/mm3 Hgb (11.8-15.2) gm/dl Hct (35.5-45.6) % [place] % (Auto) (0.0-7.3) % [place] # (0.0-0.8) K/mm3 Potassium (3.6-5.0) mmol/L Carbon Dioxide (22-30) mmol/L Calcium (8.4-10.2) mg/dL Urine WBC (Auto) (0.0-6.0) /HPF Salicylates < 0.3 L (2.8-20.0) mg/dL All other labs normal. Assessment and Plan Assessment and plan: Impression: MDD Severe Type/Substance Use DO (Meth). Patient is a 35-year-old male with history of hypertension, anxiety, drug abuse presenting today because of left-sided chest pain. Today patient is calm and cooperative during assessment. He stated that he get "psychotic" when he uses street drugs. He stated since he was discharged from [facility] he has been on a "meth binge." Patient admits to holding a gun to his head a couple days ago, because he wanted to kill himself. He stated that life is getting the best of him ( from spouse and financial problems). INR 1.18. He denies SI/HI's and AVH's. DD: R/O Bipolar Recommendation/Plan: Continue 1013 with possible placement to inpatient or outpatient rehab services. Start Zoloft 50 mg PO daily for depression and Benadryl 25 mg PO HS for sleep.
[2016-07-01 12:47] LABS: INR 1.18 (0.87-1.13); Partial Thromboplastin Time 27.6 Sec. (24.2-36.6)
[2016-07-01 12:48] LABS: Hematocrit 49.2 % (35.5-45.6); Hemoglobin 16.3 gm/dl (11.8-15.2); Mean Corpuscular HGB Conc 33 % (32-34); Mean Corpuscular Hemoglobin 28 pg (28-32); Mean Corpuscular Volume 84 fl (84-94); Platelet Count 194 K/mm3 (140-440); Red Blood Count 5.86 M/mm3 (3.65-5.03); Red Cell Distribution Width 13.8 % (13.2-15.2)
--- NOTE | 2016-07-01 12:51 | Cat Scan Report ---
HEAD CT WITHOUT CONTRAST INDICATION: Left sided weakness, chest pain. 98N. COMPARISON: 06/13/2015 FINDINGS: Noncontrast head CT demonstrates symmetric ventricles and sulci without acute or recent infarct, hemorrhage, mass effect or midline shift. No abnormal extra-axial fluid collections. Posterior fossa structures and basilar cisterns are within normal limits. Clear imaged paranasal sinuses and mastoid air cells. Intact calvarium. Normal scalp soft tissues. CONCLUSION: No acute intracranial CT abnormality, as above. MRI is more sensitive for detection of acute infarct and may be useful for further evaluation in the setting of a focal neurologic deficit. I phoned the above results to Dr. Carreno in the ER, 12:44 PM, 07/01/2016. Thank you for the opportunity to participate in this patient's care.
[2016-07-01] MEDS ORDERED: NACL 0.9% 50 ML ONE (13:23)
[2016-07-01] MEDS ORDERED: ACTIVASE ONE (13:23)
[2016-07-01 13:50] LABS: Anion Gap 18 mmol/L; BUN/Creatinine Ratio 14.54; Blood Urea Nitrogen 16 mg/dL (9-20); Calcium 9.6 mg/dL (8.4-10.2); Carbon Dioxide 26 mmol/L (22-30); Chloride 103.4 mmol/L (98-107); Glucose 78 mg/dL (75-100); Potassium 3.8 mmol/L (3.6-5.0); Sodium 144 mmol/L (137-145)
--- NOTE | 2016-07-01 14:06 | XRay Report ---
PORTABLE CHEST: Chest pain An AP portable view of the chest demonstrates a normal cardiac contour considering the limits of this technique. The lungs are clear with no evidence of infiltrate, fluid or failure. IMPRESSION: Normal portable chest.
[2016-07-01] MEDS ORDERED: ACTIVASE IV ONE ×2 (14:20→14:21)
[2016-07-01] MEDS ORDERED: ATIVAN ONE (14:24)
[2016-07-01] MEDS ORDERED: ATIVAN IV ONE (14:35)
[2016-07-01] MEDS ORDERED: NACL 0.9% IV ONE (15:05)
--- NOTE | 2016-07-01 15:05 | Cat Scan Report ---
CTA HEAD INDICATION: Left-sided weakness, chest pain. COMPARISON: None similar. FINDINGS: CTA of the brain performed following IV contrast. Multiplanar reconstructions, including post processing angiographic reformations obtained. Patent, normal vertebrobasilar system. Patent [place] as well. No hemodynamically significant stenosis or aneurysm identified. Reversal of middle turbinates incidentally noted. Minimal right maxillary sinus mucosal thickening inferiorly. CONCLUSION: Normal CTA of the head, as described. Thank you for the opportunity to participate in this patient's care.
--- NOTE | 2016-07-01 15:08 | Cat Scan Report ---
CTA NECK INDICATION: Left-sided weakness, chest pain. COMPARISON: None similar. FINDINGS: CTA neck performed utilizing IV contrast. Axial, sagittal, coronal and MIP reconstructions obtained. Patent aortic arch and major arising branch vessels, including bilateral carotids and codominant vertebral arteries. No significant atherosclerotic changes at the carotid bulb. Unremarkable thyroid. Clear imaged upper lungs. Patent airway. C5 degenerative changes. CONCLUSION: Normal CTA neck with few incidental findings, as described. Please correlate. Thank you for the opportunity to participate in this patient's care.
--- NOTE | 2016-07-01 15:23 | Event Note ---
Date: 07/01/16 It was determined patient is having a neurological deficit (left side). Patient need TPA administration per the ER Physician. I spoke with the patient to determine his insight for this procedure. He was able to tell me why he need TPA administration and the risk/benefits moving forward. Patient wanted his mother to know what was going on, so I called and spoke with her (Liz). She stated that she would like for her son to be taken care immediately. I told the patient what she said, he stated, "Thanks for telling my mom." Will continue to monitor patient.
--- NOTE | 2016-07-01 15:32 | Admit Criteria Form ---
Admission Criteria Documentation: STROKE: ISCHEMIC Clinical Indications for Admission to Inpatient Care (Place 'X' for any and all applicable criteria): Admission is indicated for ANY ONE of the following(1)(2)(3)(4): [X ]I. Acute stroke Extended stay beyond goal length of stay may be needed for(1)(2) [ ]a) Major deficit or clinical deterioration [ ]b) Hospital-acquired infection (eg, urinary tract infection, pneumonia) [ ]c) Embolic cause of stroke [ ]d) Venous thromboembolism(9) [ ]e) Seizures [ ]f) Bleeding (eg, cerebral) [ ]g) Increased intracranial pressure [ ]h) Comorbidities [ ]i) Surgical intervention The original [facility] content created by [employer] has been revised. The portions of the content which have been revised are identified through the use of italic text or in bold, and [facility] has neither reviewed nor approved the modified material. All other unmodified content is copyright [facility]. Please see references footnoted in the original [facility] edition 2016 Admission Criteria Met: Yes
[2016-07-01] MEDS ORDERED: ZOFRAN IV PRN (16:18)
[2016-07-01] MEDS ORDERED: DULCOLAX PR PRN (16:18)
[2016-07-01] MEDS ORDERED: MILK OF MAGNESIA PO PRN (16:18)
[2016-07-01] MEDS ORDERED: TYLENOL PO PRN (16:18)
[2016-07-01] MEDS ORDERED: TYLENOL PO ONE (16:30)
[2016-07-01] MEDS ORDERED: APRESOLINE IV PRN (16:31)
--- NOTE | 2016-07-01 16:39 | History and Physical Report ---
History of Present Illness Date of examination: 07/01/16 Date of admission: 07/01/16 Chief complaint: Left sided weakness History of present illness: 35-year-old male presented to the ED via ambulance with complaints of passing out at [employer] yesterday while shopping while shopping. Patient reported that he was very dehydrated and didn't know what happened when he woke up he was in the ambulance feeling dizzy, chest pains, short of breath and high blood pressure. Patient reported while he was in the emergency room awaiting for psych evaluation today, he started feeling left-sided weakness. After Head CT, Pt received TPA while in the ED. Patient has a past medical history of hypertension, appendectomy 2001, depression, hallucination due to illicit drug use. Past History Past Medical History: No medical history, hypertension (Hallucination due to ilict drug use, Depression), other (Daily Ilict Drug abuser) Past Surgical History: appendectomy (Appendectomy 2001) Social history: ( but ), smoking, full code, other ( Live with girlfriend, seperated from ) Family history: diabetes, hypertension, other (Lupus) Medications and Allergies Allergies Allergy/AdvReac Type Severity Reaction Status Date / Time No Known Allergies Allergy Verified 06/09/15 00:02 Home Medications Medication Instructions Recorded Confirmed Last Taken Type No Known Home Medications [No 06/09/15 06/30/16 Unknown History Reported Home Medications] Review of Systems Constitutional: weakness (to Left sided extrementies), no weight loss, no weight gain, no fever, no chills Ears, nose, mouth and throat: no headache Cardiovascular: other (Pt complaint of dizziness), no chest pain Respiratory: no cough, no congestion, no wheezing Gastrointestinal: constipation (Last BM 3 days ago), no abdominal pain, no nausea, no vomiting Genitourinary Male: no dysuria, no incontinence Rectal: no pain, no incontinence Musculoskeletal: leg numbness/tingling (Left leg and arm) Integumentary: deferred Neurological: syncope, lack of coordination, no head injury, no headaches, no double vision Psychiatric: hallucinations, depression, no anxiety, no suicidal ideation Exam - Constitutional Vitals: Temp Pulse Resp BP Pulse Ox 97.5 F L 74 11 L 141/84 100 07/01/16 08:51 07/01/16 16:15 07/01/16 16:15 07/01/16 16:15 07/01/16 16:15 General appearance: Present: no acute distress - EENT Eyes: Present: PERRL ENT: hearing intact, clear oral mucosa - Respiratory Respiratory effort: normal Respiratory: bilateral: CTA - Cardiovascular Heart Sounds: Present: S1 & S2. Absent: rub, click - Extremities Extremities: pulses symmetrical, No edema Peripheral Pulses: within normal limits - Abdominal General gastrointestinal: Present: soft, non-tender, non-distended, hypoactive bowel sounds Male genitourinary: Present: deferred - Rectal Rectal Exam: deferred - Integumentary Integumentary: Present: warm, dry - Musculoskeletal Musculoskeletal: left sided weakness - Psychiatric Psychiatric: intact judgment & insight, cooperative - Neurologic Neurologic: moves all extremities (Moves all extremities with left sided weakness) Results - Labs CBC & Chem 7: 07/01/16 12:24 07/01/16 12:25 Labs: Laboratory Last Values WBC 6.0 K/mm3 (4.5-11.0) 07/01/16 12:24 RBC 5.86 M/mm3 (3.65-5.03) H 07/01/16 12:24 Hgb 16.3 gm/dl (11.8-15.2) H 07/01/16 12:24 Hct 49.2 % (35.5-45.6) H 07/01/16 12:24 MCV 84 fl (84-94) 07/01/16 12:24 MCH 28 pg (28-32) 07/01/16 12:24 MCHC 33 % (32-34) 07/01/16 12:24 RDW 13.8 % (13.2-15.2) 07/01/16 12:24 Plt Count 194 K/mm3 (140-440) 07/01/16 12:24 Lymph % (Auto) 32.7 % (13.4-35.0) 06/30/16 20:00 [place] % (Auto) 8.5 % (0.0-7.3) H 06/30/16 20:00 Eos % (Auto) 0.1 % (0.0-4.3) 06/30/16 20:00 Baso % (Auto) 0.4 % (0.0-1.8) 06/30/16 20:00 Lymph # 3.3 K/mm3 (1.2-5.4) 06/30/16 20:00 [place] # 0.9 K/mm3 (0.0-0.8) H 06/30/16 20:00 Eos # 0.0 K/mm3 (0.0-0.4) 06/30/16 20:00 Baso # 0.0 K/mm3 (0.0-0.1) 06/30/16 20:00 Seg Neutrophils % 58.3 % (40.0-70.0) 06/30/16 20:00 Seg Neutrophils # 6.0 K/mm3 (1.8-7.7) 06/30/16 20:00 PT 14.9 Sec. (12.2-14.9) 07/01/16 12:25 INR 1.18 (0.87-1.13) H 07/01/16 12:25 APTT 27.6 Sec. (24.2-36.6) 07/01/16 12:25 Sodium 144 mmol/L (137-145) 07/01/16 12:25 Potassium 3.8 mmol/L (3.6-5.0) 07/01/16 12:25 Chloride 103.4 mmol/L (98-107) 07/01/16 12:25 Carbon Dioxide 26 mmol/L (22-30) 07/01/16 12:25 Anion Gap 18 mmol/L 07/01/16 12:25 BUN 16 mg/dL (9-20) 07/01/16 12:25 Creatinine 1.1 mg/dL (0.8-1.5) 07/01/16 12:25 Estimated GFR > 60 ml/min 07/01/16 12:25 BUN/Creatinine Ratio 14.54 % 07/01/16 12:25 Glucose 78 mg/dL (75-100) 07/01/16 12:25 POC Glucose 87 (70-105) 07/01/16 13:12 Calcium 9.6 mg/dL (8.4-10.2) 07/01/16 12:25 Troponin T < 0.010 ng/mL (0.00-0.029) 07/01/16 01:03 Urine Color Yellow (Yellow) 06/30/16 20:00 Urine Turbidity Clear (Clear) 06/30/16 20:00 Urine pH 5.0 (5.0-7.0) 06/30/16 20:00 Ur Specific [place] 1.029 (1.003-1.030) 06/30/16 20:00 Urine Protein 30 mg/dl mg/dL (Negative) 06/30/16 20:00 Urine Glucose (UA) Neg mg/dL (Negative) 06/30/16 20:00 Urine Ketones Tr mg/dL (Negative) 06/30/16 20:00 Urine Blood Neg (Negative) 06/30/16 20:00 Urine Nitrite Neg (Negative) 06/30/16 20:00 Urine Bilirubin Neg (Negative) 06/30/16 20:00 Urine Urobilinogen 2.0 mg/dL (<2.0) 06/30/16 20:00 Ur Leukocyte Esterase Tr (Negative) 06/30/16 20:00 Urine WBC (Auto) 13.0 /HPF (0.0-6.0) H 06/30/16 20:00 Urine RBC (Auto) 3.0 /HPF (0.0-6.0) 06/30/16 20:00 U Epithel Cells (Auto) 2.0 /HPF (0-13.0) 06/30/16 20:00 Urine Bacteria (Auto) 1+ /HPF (Negative) 06/30/16 20:00 Urine Mucus 3+ /HPF 06/30/16 20:00 Salicylates < 0.3 mg/dL (2.8-20.0) L 06/30/16 20:00 Urine Opiates Screen Presumptive negative 06/30/16 20:00 Urine Methadone Screen Presumptive negative 06/30/16 20:00 Acetaminophen < 15.0 ug/mL (10.0-30.0) 06/30/16 20:00 Ur Barbiturates Screen Presumptive negative 06/30/16 20:00 Ur Phencyclidine Scrn Presumptive negative 06/30/16 20:00 Ur Amphetamines Screen Presumptive positive 06/30/16 20:00 U Benzodiazepines Scrn Presumptive negative 06/30/16 20:00 Urine Cocaine Screen Presumptive negative 06/30/16 20:00 U Marijuana (THC) Screen Presumptive negative 06/30/16 20:00 Drugs of Abuse Note Disclamer 06/30/16 20:00 Plasma/Serum Alcohol < 0.01 gm% (0-0.07) 06/30/16 20:00 - Imaging and Cardiology Chest x-ray: image reviewed (Chest x-ray reported normal findings) CT Scan - head: image reviewed (Reported No acute intracranial ) Assessment and Plan Assessment and plan: 35-year-old male presented to the ED via ambulance with complaints of passing out at [employer] yesterday while shopping while shopping. Patient reported that he was very dehydrated and didn't know what happened when he woke up he was in the ambulance feeling dizzy, chest pains, short of breath and high blood pressure. Patient reported while he was in the emergency room awaiting for psych evaluation today, he started feeling left-sided weakness. After Head CT, Pt received TPA while in the ED. Patient has a past medical history of hypertension, appendectomy 2001, depression, hallucination due to illicit drug use. Patient denies headache, nausea, vomiting, chest pain and abdomen pain. Patient reported he was here at the hospital 3 weeks ago for [address], he was acting crazy and hallucinating. Pt was then transferred to [facility] where he was discharged. Pt is positive for amphetamines. On exam, patient A+Ox3, moves all extremities with left-sided weakness and mild facial left droop when smiling. 1. Ischemic stroke - TPA administered, Teleneurology consult, Head CT, Head and nect CTA, MRI, carotid duplex scan, Echo. Consider statin if LDL is >70 2. Hypertension - Controlled. Hydralazine PRN with target of 165-180, counsellors pt on WT loss and diet management 3. Tobacco Use - Smoking cessation and counsellors provided 4. Hallucation due to Ilict drug use - consult Pysch 5. Depression - Consult Pysch No prophylaxis or aspirin in the first 24hrs s/p aspirin. The high probability of a clinically significant, sudden or life threatening deterioration of the [neurologic] system(s) required my full and direct attention, intervention and personal management. The aggregate critical care time was [31] minutes. This time is in addition to time spent performing reported procedures but includes the following: [x] Data Review and interpretation [x] Patient assessment and monitoring of vital signs [x] Documentation [x] Medication orders and management Advance Directives: No (Full code) VTE prophylaxis?: Mechanical Contraindication Mechanical VTE Prophylaxis: Contraindicated Plan of care discussed with patient/family: Yes
[2016-07-01] MEDS: D5/0.45NS 1,000 ML IV SCH (17:23)
[2016-07-01] MEDS: ZOLOFT PO SCH (21:04)
--- NOTE | 2016-07-01 21:19 | Cat Scan Report ---
FINAL REPORT EXAM: CT HEAD/BRAIN WO CON HISTORY: rule out bleed due to tpa TECHNIQUE: Noncontrast CT axial images of the brain. PRIORS: 13 Jun 2015. FINDINGS: No parenchymal mass, mass effect, hemorrhage, midline shift or hydrocephalus. No evidence of acute cortical infarct. No abnormal, extra-axial fluid or air collection. Osseous calvarium grossly intact. IMPRESSION: 1. No acute intracranial findings.
[2016-07-02] MEDS: BENADRYL PO SCH ×2 (00:44→21:01)
[2016-07-02] MEDS: PERCOCET 5/325 PO PRN ×2 (01:45→12:47)
[2016-07-02 04:48] LABS: Basophils % (Auto) 0.3 % (0.0-1.8); Eosinophils % (Auto) 1.9 % (0.0-4.3); Hematocrit 46.5 % (35.5-45.6); Hemoglobin 15.2 gm/dl (11.8-15.2); Mean Corpuscular HGB Conc 33 % (32-34); Mean Corpuscular Hemoglobin 27 pg (28-32); Mean Corpuscular Volume 84 fl (84-94); Platelet Count 167 K/mm3 (140-440); Red Blood Count 5.57 M/mm3 (3.65-5.03); Red Cell Distribution Width 13.3 % (13.2-15.2); White Blood Count 6.6 K/mm3 (4.5-11.0)
[2016-07-02 04:54] LABS: Anion Gap 16 mmol/L; BUN/Creatinine Ratio 15.55; Blood Urea Nitrogen 14 mg/dL (9-20); Calcium 8.6 mg/dL (8.4-10.2); Carbon Dioxide 24 mmol/L (22-30); Glucose 94 mg/dL (75-100); Potassium 3.7 mmol/L (3.6-5.0); Sodium 138 mmol/L (137-145)
[2016-07-02] MEDS: D5/0.45NS 1,000 ML IV SCH ×2 (08:27→21:02)
[2016-07-02] MEDS: ZOLOFT PO SCH (09:37)
--- NOTE | 2016-07-02 11:49 | Consultation ---
History of Present Illness - Reason for Consult Consult date: 07/02/16 ICU follow up, post TPA Requesting physician: TYLER PASCLA - History of Present Illness 35 y/o male admitted to the ICU as a code stroke status post TPA around 14:21 on yesterday. Per nursing report, had improvement in left sided weakness but I was just informed that he has now worsening left sided weakness. Patient is currently showing left sided weakness. His smile is unequal. He also complains of numbness and tingling in his left arm and left leg. Past History Past Medical History: No medical history, hypertension (Hallucination due to ilict drug use, Depression), other (Daily [employer]lict Drug abuser) Past Surgical History: appendectomy (Appendectomy 2001) Social history: ( but ), smoking, full code, other ( Live with girlfriend, seperated from ) Family history: diabetes, hypertension, other (Lupus) Medications and Allergies Allergies Allergy/AdvReac Type Severity Reaction Status Date / Time No Known Allergies Allergy Verified 06/09/15 00:02 Home Medications Medication Instructions Recorded Confirmed Last Taken Type No Known Home Medications [No 06/09/15 06/30/16 Unknown History Reported Home Medications] Active Meds: Active Medications Acetaminophen (Tylenol) 650 mg PO Q4H PRN PRN Reason: Pain MILD(1-3)/Fever >100.5/CARUSO Bisacodyl (Dulcolax) 10 mg HI QDAY PRN PRN Reason: Constipation unrelieved by MOM Diphenhydramine HCl (Benadryl) 25 mg PO QHS RONIT Last Admin: 07/02/16 00:44 Dose: 25 mg Dextrose/Sodium Chloride (D5/0.45ns) 1,000 mls @ 75 mls/hr IV DIRECT RONIT Last Admin: 07/02/16 08:27 Dose: 75 mls/hr Influenza Virus Vaccine Quadrival (Fluarix Quad [id number](36 Mos+)) 60 mcg IM .ONCE ONE Stop: 07/02/16 12:01 Magnesium Hydroxide (Milk Of Magnesia) 30 ml PO Q4H PRN PRN Reason: Constipation Ondansetron HCl (Zofran) 4 mg IV Q8H PRN PRN Reason: N/V unrelieved by Reglan Oxycodone/Acetaminophen (Percocet 5/325) 1 tab PO Q8H PRN PRN Reason: Pain, Moderate (4-6) Last Admin: 07/02/16 01:45 Dose: 1 tab Sertraline HCl (Zoloft) 50 mg PO QDAY RONIT Last Admin: 07/02/16 09:37 Dose: 50 mg Review of Systems All systems: negative Exam - Constitutional Vitals: Temp Pulse Resp BP Pulse Ox 97.6 F 61 14 131/80 100 07/02/16 08:00 07/02/16 10:51 07/02/16 10:51 07/02/16 10:51 07/02/16 10:51 General appearance: Present: no acute distress, well-nourished, obese - EENT Eyes: Present: PERRL, EOM intact ENT: hearing intact, clear oral mucosa, dentition normal - Neck Neck: Present: supple, normal ROM - Respiratory Respiratory effort: normal Respiratory: bilateral: CTA - Cardiovascular Rhythm: regular Heart Sounds: Present: S1 & S2 - Extremities Extremities: no ischemia, pulses intact - Abdominal General gastrointestinal: Present: soft, non-tender Male genitourinary: Present: deferred - Rectal Rectal Exam: deferred - Integumentary Integumentary: Present: clear, warm, dry - Musculoskeletal Musculoskeletal: left sided weakness - Psychiatric Psychiatric: agitated Results - Labs CBC & Chem 7: 07/02/16 03:24 07/02/16 03:24 Labs: Abnormal lab results 07/02/16 Range/Units 03:24 RBC 5.57 H (3.65-5.03) M/mm3 Hct 46.5 H (35.5-45.6) % MCH 27 L (28-32) pg Lymph % (Auto) 42.3 H (13.4-35.0) % [place] % (Auto) 8.7 H (0.0-7.3) % - Imaging and Cardiology Chest x-ray: image reviewed (clear) CT Scan - head: report reviewed Assessment and Plan 35 y/o male, with syncopal event, admitted as code stroke to ICU status post TPA , also with some SI and committed as a 1013, now with worsening left sided weakness 1. Stat repeat Head CT 2. Per nursing, neuro has been consulted and patient is on the list to be seen 3. BP has been stable, no severe spikes or significantly low drops 4. Await Psych evaluation as well 5. Further clinical status to be determined by results of repeat stat head CT CCT 31 minutes.
[2016-07-02] MEDS ORDERED: FLUARIX QUAD 2016-2017(36 MOS+) IM ONE (12:00)
--- NOTE | 2016-07-02 12:09 | Cat Scan Report ---
CT scan of head without contrast: History: Left-sided weakness. Findings: Ventricles are normal in size and midline in location. No evidence of acute ischemia, hemorrhage or mass. No extra-axial fluid collection. Normal sinuses and mastoid air cells. Impression: Essentially negative CT scan of head.
--- NOTE | 2016-07-02 12:15 | Progress Note ---
Assessment and Plan Assessment and plan: 35-year-old male presented to the ED via ambulance with complaints of passing out at [employer] yesterday while shopping while shopping. Patient reported that he was very dehydrated and didn't know what happened when he woke up he was in the ambulance feeling dizzy, chest pains, short of breath and high blood pressure. Patient reported while he was in the emergency room awaiting for psych evaluation today, he started feeling left-sided weakness. After Head CT, Pt received TPA while in the ED. Patient has a past medical history of hypertension, appendectomy 2001, depression, hallucination due to illicit drug use. Patient denies headache, nausea, vomiting, chest pain and abdomen pain. Patient reported he was here at the hospital 3 weeks ago for [address], he was acting crazy and hallucinating. Pt was then transferred to [facility] where he was discharged. Pt is positive for amphetamines. On exam, patient A+Ox3, moves all extremities with left-sided weakness and mild facial left droop when smiling. 1. Ischemic stroke - TPA administered, neurology consult appreciated, repeat CTH wnl, Fup MRI/MRA head, carotid dopplers, Echo, intitate statin, fup lipid panel, allow permissive htn 2. Hypertension - Controlled. Hydralazine PRN with target of 165-180, counseling director pt on WT loss and diet management 3. Tobacco Use - Smoking cessation and counseling director provided 4. Hallucation due to Ilict drug use - consult Pysch 5. Depression - Consult Pysch 6. Metabolic encephalopathy Due to illicit drug abuse, improving Critical Care time 32 minutes History Interval history: Patient reports that left upper extremity weakness is improving, denied confusion, currently denies suicide ideation Hospitalist Physical - Physical exam Narrative exam: General: Patient appears well in no distress HEENT: MMM, EOMI cardiac: S1-S2 heard lungs: clear to auscultation, abdomen: soft, nontender, nondistended bowel sounds positive extremities: no edema clubbing or cyanosis Skin: no rash or lesion Neuro: Mild left upper extremity hemiparesis Psych: appropriate behavior and mood, cognition intact - Constitutional Vitals: Temp Pulse Resp BP Pulse Ox 97.6 F 61 14 131/80 100 07/02/16 08:00 07/02/16 10:51 07/02/16 10:51 07/02/16 10:51 07/02/16 10:51 General appearance: Present: no acute distress, well-nourished, obese Results - Labs CBC & Chem 7: 07/02/16 03:24 07/02/16 03:24 Labs: Laboratory Last Values WBC 6.6 K/mm3 (4.5-11.0) 07/02/16 03:24 RBC 5.57 M/mm3 (3.65-5.03) H 07/02/16 03:24 Hgb 15.2 gm/dl (11.8-15.2) 07/02/16 03:24 Hct 46.5 % (35.5-45.6) H 07/02/16 03:24 MCV 84 fl (84-94) 07/02/16 03:24 MCH 27 pg (28-32) L 07/02/16 03:24 MCHC 33 % (32-34) 07/02/16 03:24 RDW 13.3 % (13.2-15.2) 07/02/16 03:24 Plt Count 167 K/mm3 (140-440) 07/02/16 03:24 Lymph % (Auto) 42.3 % (13.4-35.0) H 07/02/16 03:24 [place] % (Auto) 8.7 % (0.0-7.3) H 07/02/16 03:24 Eos % (Auto) 1.9 % (0.0-4.3) 07/02/16 03:24 Baso % (Auto) 0.3 % (0.0-1.8) 07/02/16 03:24 Lymph # 2.8 K/mm3 (1.2-5.4) 07/02/16 03:24 [place] # 0.6 K/mm3 (0.0-0.8) 07/02/16 03:24 Eos # 0.1 K/mm3 (0.0-0.4) 07/02/16 03:24 Baso # 0.0 K/mm3 (0.0-0.1) 07/02/16 03:24 Seg Neutrophils % 46.8 % (40.0-70.0) 07/02/16 03:24 Seg Neutrophils # 3.1 K/mm3 (1.8-7.7) 07/02/16 03:24 PT 14.9 Sec. (12.2-14.9) 07/01/16 12:25 INR 1.18 (0.87-1.13) H 07/01/16 12:25 APTT 27.6 Sec. (24.2-36.6) 07/01/16 12:25 Sodium 138 mmol/L (137-145) 07/02/16 03:24 Potassium 3.7 mmol/L (3.6-5.0) 07/02/16 03:24 Chloride 102.0 mmol/L (98-107) 07/02/16 03:24 Carbon Dioxide 24 mmol/L (22-30) 07/02/16 03:24 Anion Gap 16 mmol/L 07/02/16 03:24 BUN 14 mg/dL (9-20) 07/02/16 03:24 Creatinine 0.9 mg/dL (0.8-1.5) 07/02/16 03:24 Estimated GFR > 60 ml/min 07/02/16 03:24 BUN/Creatinine Ratio 15.55 % 07/02/16 03:24 Glucose 94 mg/dL (75-100) 07/02/16 03:24 POC Glucose 87 (70-105) 07/01/16 13:12 Calcium 8.6 mg/dL (8.4-10.2) 07/02/16 03:24 Troponin T < 0.010 ng/mL (0.00-0.029) 07/01/16 01:03 Urine Color Yellow (Yellow) 06/30/16 20:00 Urine Turbidity Clear (Clear) 06/30/16 20:00 Urine pH 5.0 (5.0-7.0) 06/30/16 20:00 Ur Specific [place] 1.029 (1.003-1.030) 06/30/16 20:00 Urine Protein 30 mg/dl mg/dL (Negative) 06/30/16 20:00 Urine Glucose (UA) Neg mg/dL (Negative) 06/30/16 20:00 Urine Ketones Tr mg/dL (Negative) 06/30/16 20:00 Urine Blood Neg (Negative) 06/30/16 20:00 Urine Nitrite Neg (Negative) 06/30/16 20:00 Urine Bilirubin Neg (Negative) 06/30/16 20:00 Urine Urobilinogen 2.0 mg/dL (<2.0) 06/30/16 20:00 Ur Leukocyte Esterase Tr (Negative) 06/30/16 20:00 Urine WBC (Auto) 13.0 /HPF (0.0-6.0) H 06/30/16 20:00 Urine RBC (Auto) 3.0 /HPF (0.0-6.0) 06/30/16 20:00 U Epithel Cells (Auto) 2.0 /HPF (0-13.0) 06/30/16 20:00 Urine Bacteria (Auto) 1+ /HPF (Negative) 06/30/16 20:00 Urine Mucus 3+ /HPF 06/30/16 20:00 Salicylates < 0.3 mg/dL (2.8-20.0) L 06/30/16 20:00 Urine Opiates Screen Presumptive negative 06/30/16 20:00 Urine Methadone Screen Presumptive negative 06/30/16 20:00 Acetaminophen < 15.0 ug/mL (10.0-30.0) 06/30/16 20:00 Ur Barbiturates Screen Presumptive negative 06/30/16 20:00 Ur Phencyclidine Scrn Presumptive negative 06/30/16 20:00 Ur Amphetamines Screen Presumptive positive 06/30/16 20:00 U Benzodiazepines Scrn Presumptive negative 06/30/16 20:00 Urine Cocaine Screen Presumptive negative 06/30/16 20:00 U Marijuana (THC) Screen Presumptive negative 06/30/16 20:00 Drugs of Abuse Note Disclamer 06/30/16 20:00 Plasma/Serum Alcohol < 0.01 gm% (0-0.07) 06/30/16 20:00
--- NOTE | 2016-07-02 14:16 | Consultation ---
History of Present Illness Consult date: 07/02/16 Requesting physician: NITESH DELCID Reason for Consult: stroke s/p tPA Chief complaint: L side numbness/weakness History of present illness: 35 YO M hx HTN/methamphetamine abuse p/w acute onset L sided numbness/weakness on 07/01 @ 11:15. NIHSS 3 in ED and was given tPA @ 14:20. Sx are constant. There are no clear aggravating, relieving or temporal factors. Severity was enough to cause inability to effectively use the left side. Past History Past Medical History: No medical history, hypertension (Hallucination due to ilict drug use, Depression), other (Daily Ilict Drug abuser) Past Surgical History: appendectomy (Appendectomy 2001) Social history: ( but ), smoking, full code, other ( Live with girlfriend, seperated from ) Family history: diabetes, hypertension, other (Lupus) Medications and Allergies Allergies Allergy/AdvReac Type Severity Reaction Status Date / Time No Known Allergies Allergy Verified 06/09/15 00:02 Home Medications Medication Instructions Recorded Confirmed Last Taken Type No Known Home Medications [No 06/09/15 06/30/16 Unknown History Reported Home Medications] Active Meds: Active Medications Acetaminophen (Tylenol) 650 mg PO Q4H PRN PRN Reason: Pain MILD(1-3)/Fever >100.5/CARUSO Bisacodyl (Dulcolax) 10 mg IA QDAY PRN PRN Reason: Constipation unrelieved by MOM Diphenhydramine HCl (Benadryl) 25 mg PO QHS RONIT Last Admin: 07/02/16 00:44 Dose: 25 mg Dextrose/Sodium Chloride (D5/0.45ns) 1,000 mls @ 75 mls/hr IV DIRECT RONIT Last Admin: 07/02/16 08:27 Dose: 75 mls/hr Magnesium Hydroxide (Milk Of Magnesia) 30 ml PO Q4H PRN PRN Reason: Constipation Ondansetron HCl (Zofran) 4 mg IV Q8H PRN PRN Reason: N/V unrelieved by Reglan Oxycodone/Acetaminophen (Percocet 5/325) 1 tab PO Q8H PRN PRN Reason: Pain, Moderate (4-6) Last Admin: 05/23/17 12:47 Dose: 1 tab Sertraline HCl (Zoloft) 50 mg PO QDAY RONIT Last Admin: 07/02/16 09:37 Dose: 50 mg Review of Systems All systems: negative Constitutional: sweats, night sweats, weakness, lethargy Cardiovascular: chest pain, shortness of breath Respiratory: shortness of breath Neurological: weakness, numbness, headaches, gait dysfunction, motor disturbance , sensory deficit, no tingling, no change in speech Physical Examination - Vital Signs Vital Signs: Vital Signs Temp Pulse Resp BP Pulse Ox 98.6 F 133 H 26 H 116/62 96 06/30/16 19:55 06/30/16 19:55 06/30/16 19:55 06/30/16 19:55 06/30/16 19:55 - Constitutional General appearance: comfortable, acutely ill - EENT EENT: Present: ATNC, PERRL, mucous membranes moist, hearing intact, vision intact - Respiratory Respiratory: Present: chest non-tender, normal breath sounds, no respiratory distress - Cardiovascular Cardiovascular: Present: regular rate Extremities: Present: no peripheral edema bilatateraly, no clubbing, cyanosis, no inflammation, no ischemia or petechiae - Gastrointestinal Gastrointestinal: Present: normoactive bowel sounds, soft, non-distended - Integumentary Integumentary: Present: normal - Neurologic Cranial nerve examination: PERRL, EOMI, VFF, V1/V2/V3 grossly intact, tongue midline, intact, intact shoulder shrug, Intact Vestibulo-ocular r, intact corneal reflex, facial droop (on L), normal palatal elevation Speech examination: intact Sensorimotor examination: pronator drift (L UE), hemiparesis (on L mild) Motor examination - right side: 5/5: biceps, triceps, wrist flexion, wrist extension, yarn rewinder, hip flexors, knee extensors, dorsiflexion, toe extension (EHL) , plantarflexion Motor examination - left side: 4/5: biceps, triceps, wrist flexion, wrist extension, yarn rewinder, 5/5: hip flexors, knee extensors, dorsiflexion, toe extension ( EHL), plantarflexion Detailed sensory examination: light touch (diminished on L), temperature ( diminished on L) Reflex and gait examination: intact Reflexes: 3+: ankle (slightly greater on L), bicep, knee, tricep - Musculoskeletal Musculoskeletal: Present: no fluid collection, no pain, normal range of motion - Psychiatric Psychiatric: Present: cooperative Results - Laboratory Findings CBC and BMP: 07/02/16 03:24 07/02/16 03:24 Abnormal Lab Findings: Abnormal Labs 07/02/16 03:24 RBC 5.57 H Hct 46.5 H MCH 27 L Lymph % (Auto) 42.3 H [place] % (Auto) 8.7 H Assessment and Plan 35 YO M hx HTN/active methamphetamine abuse p/w acute onset L sided numbness/ weakness on 07/01 @ 11:15 w/ NIHSS 3 in ED and was given tPA @ 14:20 by tele- neurology. Syn suspicious for acute lacunar stroke d/t meth abuse. CTH x 2 and CTA H/N neg. Plan and Recommendation: 1. Current NIHSS 3 2. Telemetry bed w/ Q4 hour neuro checks 3. Brain imaging: MRI Brain w/o Juan Stroke Protocol 4. TTE to eval for possible cardiac source of embolism 5. Serum Labs: HgA1c, LDL. Stroke in [place] Eval: ESR/CRP, Coags, Toxicology, RPR/VDRL, If Febrile-BCx, LP; Hypercoag screen-Protein C Activity, Protein S Ag , Antithrombin III, Activated Protein C resistance, Factor V Leiden, RVVT or APLAbs, Beta-2 GP Ab, Fibrinogen, Prothrombin gene [id number] mutation, MTHFR C677T , HERB-1, HIV, JENNIE, Lactic Acid, Homocysteine, Cryoglobulin, Complement level, ANCA, Scl-70 Ab, anti-centromere Ab, Anti-Ro (SSA)/Anti-La (SSB), BETH, Antiproteinase 3, Lipoprotein A 6. Permissive HTN for first 24-48 hours: HOB < 30 degrees, isotonic IVF prn and refrain from active Tx of HTN unless BP > 185/105 or pt develops malignant HTN. Can lower MAPs by 10-15% daily to reach goal SBP 120-160 after permissive HTN period 7. Secondary stroke prevention: ASA 325mg Daily x 1 then 81mg QDay & upgrade to full dose statin therapy (Crestor 20mg or 40mg OR Lipitor 40mg or 80mg Daily OR Zocor 40mg QDay) for goal LDL < 70. 8. F/E/N: isotonic IVF prn, prn replete, bedside speech/swallow eval prior to PO intake. 9. DVT Prophylaxis 10. Stroke education, PT/OT/Speech Therapy consults, CM evaluation 11. For any changes in neurologic status, pls obtain STAT CTH w/o contrast and call neurology
[2016-07-02 17:18] LABS: HIV-1 Antigen p24 Non React (Non React); HIVR-1/2 Ab Non React (Non React)
[2016-07-02 17:26] LABS: Erythrocyte Sedimentation Rate 3 mm/Hr (0-20)
[2016-07-02 17:35] LABS: C-Reactive Protein 0.6 mg/dL (0.00-1.30)
--- NOTE | 2016-07-02 17:47 | Consultation ---
History of Present Illness - Reason for Consult Consult date: 07/02/16 Evaluate for Acute IRU - History of Present Illness 35 y.o.male with reported syncopal episode at [facility]; brought to ED via EMS. While awaiting evaluation, pt began having left sided weakness. CT Brain noted to be negative; tPA given. Repeat CT Brain negative x2. Awaiting Brain MRI. On today, pt with limited LLE movement. Consult requested for post-acute placement recommendations. Past History Past Medical History: No medical history, hypertension (Hallucination due to ilict drug use, Depression), other (Daily Ilict Drug abuser) Past Surgical History: appendectomy Social history: ( but ), smoking, other (Live with girlfriend, seperated from ) Family history: diabetes, hypertension, stroke, other (Lupus) Medications and Allergies Allergies Allergy/AdvReac Type Severity Reaction Status Date / Time No Known Allergies Allergy Verified 06/09/15 00:02 Home Medications Medication Instructions Recorded Confirmed Last Taken Type No Known Home Medications [No 06/09/15 06/30/16 Unknown History Reported Home Medications] Active Meds: Active Medications Acetaminophen (Tylenol) 650 mg PO Q4H PRN PRN Reason: Pain MILD(1-3)/Fever >100.5/CARUSO Aspirin (Baby Aspirin) 81 mg PO QDAY RONIT Atorvastatin Calcium (Lipitor) 40 mg PO QHS RONIT Bisacodyl (Dulcolax) 10 mg AR QDAY PRN PRN Reason: Constipation unrelieved by MOM Diphenhydramine HCl (Benadryl) 25 mg PO QHS RONIT Last Admin: 07/02/16 00:44 Dose: 25 mg Dextrose/Sodium Chloride (D5/0.45ns) 1,000 mls @ 75 mls/hr IV DIRECT RONIT Last Admin: 07/02/16 08:27 Dose: 75 mls/hr Magnesium Hydroxide (Milk Of Magnesia) 30 ml PO Q4H PRN PRN Reason: Constipation Ondansetron HCl (Zofran) 4 mg IV Q8H PRN PRN Reason: N/V unrelieved by Reglan Oxycodone/Acetaminophen (Percocet 5/325) 1 tab PO Q8H PRN PRN Reason: Pain, Moderate (4-6) Last Admin: 07/02/16 12:47 Dose: 1 tab Sertraline HCl (Zoloft) 50 mg PO QDAY RONIT Last Admin: 07/02/16 09:37 Dose: 50 mg Review of Systems All systems: negative Ears, nose, mouth and throat: headache Gastrointestinal: no nausea, no vomiting Genitourinary Male: no dysuria Neurological: weakness Exam - Constitutional Vitals: Vital Signs - 12hr 07/02/16 07/02/16 07/02/16 05:51 06:00 06:11 Temperature Pulse Rate 56 L 64 60 Pulse Rate [ 67 Left Arm] Respiratory 18 16 11 L Rate Respiratory 16 Rate [Left Arm] Blood Pressure 109/72 105/72 113/73 Blood Pressure 120/68 [Left Arm] O2 Sat by Pulse 93 95 99 Oximetry O2 Sat by Pulse 100 Oximetry [Left Arm] 07/02/16 07/02/16 07/02/16 06:21 06:30 06:41 Temperature Pulse Rate 76 57 L 61 Pulse Rate [ Left Arm] Respiratory 18 15 13 Rate Respiratory Rate [Left Arm] Blood Pressure 113/73 120/68 120/68 Blood Pressure [Left Arm] O2 Sat by Pulse 99 93 99 Oximetry O2 Sat by Pulse Oximetry [Left Arm] 07/02/16 07/02/16 07/02/16 06:51 07:00 07:11 Temperature Pulse Rate 69 59 L 59 L Pulse Rate [ Left Arm] Respiratory 16 17 15 Rate Respiratory Rate [Left Arm] Blood Pressure 120/68 115/68 115/68 Blood Pressure [Left Arm] O2 Sat by Pulse 97 95 93 Oximetry O2 Sat by Pulse Oximetry [Left Arm] 07/02/16 07/02/16 07/02/16 07:21 07:30 07:41 Temperature Pulse Rate 81 57 L 59 L Pulse Rate [ Left Arm] Respiratory 16 14 15 Rate Respiratory Rate [Left Arm] Blood Pressure 115/68 130/95 115/68 Blood Pressure [Left Arm] O2 Sat by Pulse 97 94 96 Oximetry O2 Sat by Pulse Oximetry [Left Arm] 07/02/16 07/02/16 07/02/16 07:51 08:00 08:11 Temperature 97.6 F Pulse Rate 52 L 70 67 Pulse Rate [ Left Arm] Respiratory 15 13 15 Rate Respiratory Rate [Left Arm] Blood Pressure 115/68 120/85 120/85 Blood Pressure [Left Arm] O2 Sat by Pulse 89 97 99 Oximetry O2 Sat by Pulse Oximetry [Left Arm] 07/02/16 07/02/16 07/02/16 08:21 08:30 08:32 Temperature Pulse Rate 70 56 L Pulse Rate [ Left Arm] Respiratory 16 13 Rate Respiratory Rate [Left Arm] Blood Pressure 120/85 126/73 Blood Pressure [Left Arm] O2 Sat by Pulse 100 99 100 Oximetry O2 Sat by Pulse Oximetry [Left Arm] 07/02/16 07/02/16 07/02/16 08:41 08:51 09:00 Temperature Pulse Rate 61 56 L 57 L Pulse Rate [ Left Arm] Respiratory 15 16 16 Rate Respiratory Rate [Left Arm] Blood Pressure 126/73 126/73 119/88 Blood Pressure [Left Arm] O2 Sat by Pulse 99 99 97 Oximetry O2 Sat by Pulse Oximetry [Left Arm] 07/02/16 07/02/16 07/02/16 09:11 09:21 09:30 Temperature Pulse Rate 67 76 58 L Pulse Rate [ Left Arm] Respiratory 15 16 13 Rate Respiratory Rate [Left Arm] Blood Pressure 119/88 126/73 123/79 Blood Pressure [Left Arm] O2 Sat by Pulse 100 98 98 Oximetry O2 Sat by Pulse Oximetry [Left Arm] 07/02/16 07/02/16 07/02/16 09:41 09:51 10:00 Temperature Pulse Rate 66 54 L 58 L Pulse Rate [ Left Arm] Respiratory 15 14 15 Rate Respiratory Rate [Left Arm] Blood Pressure 123/79 119/88 126/85 Blood Pressure [Left Arm] O2 Sat by Pulse 99 100 97 Oximetry O2 Sat by Pulse Oximetry [Left Arm] 07/02/16 07/02/16 07/02/16 10:11 10:21 10:30 Temperature Pulse Rate 66 53 L 59 L Pulse Rate [ Left Arm] Respiratory 13 18 16 Rate Respiratory Rate [Left Arm] Blood Pressure 126/85 123/79 131/80 Blood Pressure [Left Arm] O2 Sat by Pulse 99 97 96 Oximetry O2 Sat by Pulse Oximetry [Left Arm] 07/02/16 07/02/16 07/02/16 10:41 10:51 11:00 Temperature Pulse Rate 57 L 61 61 Pulse Rate [ Left Arm] Respiratory 16 14 14 Rate Respiratory Rate [Left Arm] Blood Pressure 131/80 131/80 126/83 Blood Pressure [Left Arm] O2 Sat by Pulse 96 100 97 Oximetry O2 Sat by Pulse Oximetry [Left Arm] 07/02/16 07/02/16 07/02/16 11:11 11:21 11:30 Temperature Pulse Rate 58 L 77 79 Pulse Rate [ Left Arm] Respiratory 14 14 10 L Rate Respiratory Rate [Left Arm] Blood Pressure 126/83 126/83 126/93 Blood Pressure [Left Arm] O2 Sat by Pulse 99 100 98 Oximetry O2 Sat by Pulse Oximetry [Left Arm] 07/02/16 07/02/16 07/02/16 11:41 11:57 12:00 Temperature 98.1 F Pulse Rate 67 82 Pulse Rate [ 65 Left Arm] Respiratory 9 L 15 Rate Respiratory 12 Rate [Left Arm] Blood Pressure 126/93 126/93 140/109 Blood Pressure 150/85 [Left Arm] O2 Sat by Pulse 99 100 98 Oximetry O2 Sat by Pulse 100 Oximetry [Left Arm] 07/02/16 07/02/16 07/02/16 12:10 12:21 12:31 Temperature Pulse Rate 74 68 79 Pulse Rate [ Left Arm] Respiratory 13 15 16 Rate Respiratory Rate [Left Arm] Blood Pressure 151/82 151/82 151/82 Blood Pressure [Left Arm] O2 Sat by Pulse 93 98 100 Oximetry O2 Sat by Pulse Oximetry [Left Arm] 07/02/16 07/02/16 07/02/16 12:41 12:51 13:00 Temperature Pulse Rate 73 64 57 L Pulse Rate [ Left Arm] Respiratory 14 15 12 Rate Respiratory Rate [Left Arm] Blood Pressure 123/88 123/88 141/87 Blood Pressure [Left Arm] O2 Sat by Pulse 99 99 93 Oximetry O2 Sat by Pulse Oximetry [Left Arm] 07/02/16 07/02/16 07/02/16 13:11 13:21 13:31 Temperature Pulse Rate 61 57 L 55 L Pulse Rate [ Left Arm] Respiratory 15 13 15 Rate Respiratory Rate [Left Arm] Blood Pressure 141/87 141/87 149/94 Blood Pressure [Left Arm] O2 Sat by Pulse 100 100 95 Oximetry O2 Sat by Pulse Oximetry [Left Arm] 07/02/16 07/02/16 07/02/16 13:41 13:51 14:00 Temperature Pulse Rate 73 67 62 Pulse Rate [ Left Arm] Respiratory 15 15 16 Rate Respiratory Rate [Left Arm] Blood Pressure 149/94 149/94 126/72 Blood Pressure [Left Arm] O2 Sat by Pulse 99 99 95 Oximetry O2 Sat by Pulse Oximetry [Left Arm] 07/02/16 07/02/16 07/02/16 14:11 14:21 14:30 Temperature Pulse Rate 59 L 58 L 59 L Pulse Rate [ Left Arm] Respiratory 14 14 13 Rate Respiratory Rate [Left Arm] Blood Pressure 126/72 126/72 139/87 Blood Pressure [Left Arm] O2 Sat by Pulse 99 99 94 Oximetry O2 Sat by Pulse Oximetry [Left Arm] 07/02/16 07/02/16 07/02/16 14:41 14:51 15:00 Temperature Pulse Rate 55 L 57 L 51 L Pulse Rate [ Left Arm] Respiratory 16 14 13 Rate Respiratory Rate [Left Arm] Blood Pressure 139/87 139/87 145/87 Blood Pressure [Left Arm] O2 Sat by Pulse 100 100 100 Oximetry O2 Sat by Pulse Oximetry [Left Arm] 07/02/16 07/02/16 07/02/16 15:11 15:21 15:30 Temperature Pulse Rate 55 L 53 L 53 L Pulse Rate [ Left Arm] Respiratory 12 11 L 14 Rate Respiratory Rate [Left Arm] Blood Pressure 145/87 145/87 127/90 Blood Pressure [Left Arm] O2 Sat by Pulse 100 99 94 Oximetry O2 Sat by Pulse Oximetry [Left Arm] 07/02/16 07/02/16 07/02/16 15:41 15:51 16:00 Temperature 97.6 F Pulse Rate 54 L 65 Pulse Rate [ Left Arm] Respiratory 12 8 L Rate Respiratory Rate [Left Arm] Blood Pressure 127/90 127/90 Blood Pressure [Left Arm] O2 Sat by Pulse 99 100 Oximetry O2 Sat by Pulse Oximetry [Left Arm] 07/02/16 16:01 Temperature Pulse Rate 57 L Pulse Rate [ Left Arm] Respiratory 12 Rate Respiratory Rate [Left Arm] Blood Pressure 127/90 Blood Pressure [Left Arm] O2 Sat by Pulse 97 Oximetry O2 Sat by Pulse Oximetry [Left Arm] General appearance: no acute distress - EENT Eyes: EOM intact ENT: hearing intact - Neck Neck: supple, normal ROM - Respiratory Respiratory effort: normal Respiratory: bilateral: CTA - Cardiovascular Heart Sounds: Present: S1 & S2 (bradycardic) - Extremities Extremities: No edema - Gastrointestinal General gastrointestinal: Present: soft, non-tender, non-distended, normal bowel sounds - Integumentary Integumentary: Present: clear - Musculoskeletal Musculoskeletal: left sided weakness (decreased effort with LLE movement, 3/5; LUE with good ROM and good strength) - Neurologic Neurologic: CNII-XII intact - Psychiatric Psychiatric: appropriate mood/affect, memory intact, cooperative - Allied health notes Allied health notes reviewed: ST (pureed) - Labs CBC & Chem 7: 07/02/16 03:24 07/02/16 03:24 Labs: Laboratory Results - last 72 hr 07/02/16 07/02/16 07/02/16 03:24 03:24 16:34 WBC 6.6 RBC 5.57 H Hgb 15.2 Hct 46.5 H MCV 84 MCH 27 L MCHC 33 RDW 13.3 Plt Count 167 Lymph % (Auto) 42.[address] [place] % (Auto) 8.7 H Eos % (Auto) 1.9 Baso % (Auto) 0.3 Lymph # 2.8 [place] # 0.6 Eos # 0.1 Baso # 0.0 Seg Neutrophils % 46.8 Seg Neutrophils # 3.1 ESR 3 Fibrinogen Sodium 138 Potassium 3.7 Chloride 102.0 Carbon Dioxide 24 Anion Gap 16 BUN 14 Creatinine 0.9 Estimated GFR > 60 BUN/Creatinine Ratio 15.55 Glucose 94 Lactic Acid Calcium 8.6 C-Reactive Protein LDL Cholesterol Direct HIV 1&2 Antibody Rapid Non react HIV P24 Antigen Non react 07/02/16 07/02/16 07/02/16 16:34 16:34 16:34 WBC RBC Hgb Hct MCV MCH MCHC RDW Plt Count Lymph % (Auto) [place] % (Auto) Eos % (Auto) Baso % (Auto) Lymph # [place] # Eos # Baso # Seg Neutrophils % Seg Neutrophils # ESR Fibrinogen 324 Sodium Potassium Chloride Carbon Dioxide Anion Gap BUN Creatinine Estimated GFR BUN/Creatinine Ratio Glucose Lactic Acid 0.90 Calcium C-Reactive Protein 0.60 LDL Cholesterol Direct 140 H HIV 1&2 Antibody Rapid HIV P24 Antigen Assessment and Plan Patient was assessed and evaluated for Acute Inpatient Rehab Unit. 35 y.o. male with acute left sided weakness, s/p tPA; pending MRI. CT Brain negative for acute CVA. Pt is pending therapy evaluations. Rehab options discussed with pt on today; placement recommendations post discharge to follow. IM for HTN management. Will continue to follow - Patient Problems (1) HTN (hypertension) Current Visit: Yes Status: Acute Qualifiers: Hypertension type: essential hypertension Qualified Code(s): I10 - Essential (primary) hypertension (2) Left-sided weakness Current Visit: Yes Status: Acute (3) Dysphagia Current Visit: Yes Status: Acute Qualifiers: Dysphagia type: pharyngeal phase Qualified Code(s): R13.13 - Dysphagia, pharyngeal phase
[2016-07-02] MEDS: BABY ASPIRIN PO SCH (18:09)
[2016-07-03] MEDS: BABY ASPIRIN PO SCH (09:16)
[2016-07-03] MEDS: ZOLOFT PO SCH (09:16)
[2016-07-03] MEDS ORDERED: SODIUM CHLORIDE FLUSH SYRINGE 10 ML IV PRN (10:37)
--- NOTE | 2016-07-03 10:41 | Progress Note ---
Assessment and Plan Assessment and plan: 35-year-old male presented to the ED via ambulance with complaints of passing out at [email or web address] yesterday while shopping while shopping. Patient reported that he was very dehydrated and didn't know what happened when he woke up he was in the ambulance feeling dizzy, chest pains, short of breath and high blood pressure. Patient reported while he was in the emergency room awaiting for psych evaluation today, he started feeling left-sided weakness. After Head CT, Pt received TPA while in the ED. Patient has a past medical history of hypertension, appendectomy 2001, depression, hallucination due to illicit drug use. Patient denies headache, nausea, vomiting, chest pain and abdomen pain. Patient reported he was here at the hospital 3 weeks ago for [address], he was acting crazy and hallucinating. Pt was then transferred to [facility] where he was discharged. Pt is positive for amphetamines. On exam, patient A+Ox3, moves all extremities with left-sided weakness and mild facial left droop when smiling. 1. Ischemic stroke with infarcts - TPA administered, neurology consult appreciated, repeat CTH wnl, MRI/MRA head and negative, carotid dopplers show no occlusion, Echo unremarkable, continue statin, aspirin, medical management, follow-up CHANG 2. Hypertension - Controlled. Hydralazine PRN with target of 165-180, assessment counselor pt on WT loss and diet management 3. Tobacco Use - Smoking cessation and assessment counselor provided 4. Hallucation due to Ilict drug use - psych input appreciated, continue 1013 5. Depression -psych input appreciated, continue 1013 6. Metabolic encephalopathy Due to illicit drug abuse, improving Critical Care time 32 minutes History Interval history: Patient reports that left upper extremity weakness is improving, denied confusion, currently denies suicide ideation Hospitalist Physical - Physical exam Narrative exam: General: Patient appears well in no distress HEENT: MMM, EOMI cardiac: S1-S2 heard lungs: clear to auscultation, abdomen: soft, nontender, nondistended bowel sounds positive extremities: no edema clubbing or cyanosis Skin: no rash or lesion Neuro: Mild left upper extremity hemiparesis Psych: appropriate behavior and mood, cognition intact - Constitutional Vitals: Temp Pulse Resp BP Pulse Ox 97.7 F 55 L 13 126/82 98 07/03/16 08:00 07/03/16 08:00 07/03/16 08:00 07/03/16 08:00 07/03/16 08:05 General appearance: Present: no acute distress Results - Labs CBC & Chem 7: 07/02/16 03:24 07/02/16 03:24 Labs: Laboratory Last Values WBC 6.6 K/mm3 (4.5-11.0) 07/02/16 03:24 RBC 5.57 M/mm3 (3.65-5.03) H 07/02/16 03:24 Hgb 15.2 gm/dl (11.8-15.2) 07/02/16 03:24 Hct 46.5 % (35.5-45.6) H 07/02/16 03:24 MCV 84 fl (84-94) 07/02/16 03:24 MCH 27 pg (28-32) L 07/02/16 03:24 MCHC 33 % (32-34) 07/02/16 03:24 RDW 13.3 % (13.2-15.2) 07/02/16 03:24 Plt Count 167 K/mm3 (140-440) 07/02/16 03:24 Lymph % (Auto) 42.3 % (13.4-35.0) H 07/02/16 03:24 Rogers % (Auto) 8.7 % (0.0-7.3) H 07/02/16 03:24 Eos % (Auto) 1.9 % (0.0-4.3) 07/02/16 03:24 Baso % (Auto) 0.3 % (0.0-1.8) 07/02/16 03:24 Lymph # 2.8 K/mm3 (1.2-5.4) 07/02/16 03:24 Rogers # 0.6 K/mm3 (0.0-0.8) 07/02/16 03:24 Eos # 0.1 K/mm3 (0.0-0.4) 07/02/16 03:24 Baso # 0.0 K/mm3 (0.0-0.1) 07/02/16 03:24 Seg Neutrophils % 46.8 % (40.0-70.0) 07/02/16 03:24 Seg Neutrophils # 3.1 K/mm3 (1.8-7.7) 07/02/16 03:24 ESR 3 mm/Hr (0-20) 07/02/16 16:34 PT 14.9 Sec. (12.2-14.9) 07/01/16 12:25 INR 1.18 (0.87-1.13) H 07/01/16 12:25 APTT 27.6 Sec. (24.2-36.6) 07/01/16 12:25 Fibrinogen 324 mg/dl (211-480) 07/02/16 16:34 Sodium 138 mmol/L (137-145) 07/02/16 03:24 Potassium 3.7 mmol/L (3.6-5.0) 07/02/16 03:24 Chloride 102.0 mmol/L (98-107) 07/02/16 03:24 Carbon Dioxide 24 mmol/L (22-30) 07/02/16 03:24 Anion Gap 16 mmol/L 07/02/16 03:24 BUN 14 mg/dL (9-20) 07/02/16 03:24 Creatinine 0.9 mg/dL (0.8-1.5) 07/02/16 03:24 Estimated GFR > 60 ml/min 07/02/16 03:24 BUN/Creatinine Ratio 15.55 % 07/02/16 03:24 Glucose 94 mg/dL (75-100) 07/02/16 03:24 POC Glucose 87 (70-105) 07/01/16 13:12 Lactic Acid 0.90 mmol/L (0.7-2.0) 07/02/16 16:34 Calcium 8.6 mg/dL (8.4-10.2) 07/02/16 03:24 Troponin T < 0.010 ng/mL (0.00-0.029) 07/01/16 01:03 C-Reactive Protein 0.60 mg/dL (0.00-1.30) 07/02/16 16:34 LDL Cholesterol Direct 140 mg/dL (50-130) H 07/02/16 16:34 Urine Color Yellow (Yellow) 06/30/16 20:00 Urine Turbidity Clear (Clear) 06/30/16 20:00 Urine pH 5.0 (5.0-7.0) 06/30/16 20:00 Ur Specific [place] 1.029 (1.003-1.030) 06/30/16 20:00 Urine Protein 30 mg/dl mg/dL (Negative) 06/30/16 20:00 Urine Glucose (UA) Neg mg/dL (Negative) 06/30/16 20:00 Urine Ketones Tr mg/dL (Negative) 06/30/16 20:00 Urine Blood Neg (Negative) 06/30/16 20:00 Urine Nitrite Neg (Negative) 06/30/16 20:00 Urine Bilirubin Neg (Negative) 06/30/16 20:00 Urine Urobilinogen 2.0 mg/dL (<2.0) 06/30/16 20:00 Ur Leukocyte Esterase Tr (Negative) 06/30/16 20:00 Urine WBC (Auto) 13.0 /HPF (0.0-6.0) H 06/30/16 20:00 Urine RBC (Auto) 3.0 /HPF (0.0-6.0) 06/30/16 20:00 U Epithel Cells (Auto) 2.0 /HPF (0-13.0) 06/30/16 20:00 Urine Bacteria (Auto) 1+ /HPF (Negative) 06/30/16 20:00 Urine Mucus 3+ /HPF 06/30/16 20:00 Salicylates < 0.3 mg/dL (2.8-20.0) L 06/30/16 20:00 Urine Opiates Screen Presumptive negative 06/30/16 20:00 Urine Methadone Screen Presumptive negative 06/30/16 20:00 Acetaminophen < 15.0 ug/mL (10.0-30.0) 06/30/16 20:00 Ur Barbiturates Screen Presumptive negative 06/30/16 20:00 Ur Phencyclidine Scrn Presumptive negative 06/30/16 20:00 Ur Amphetamines Screen Presumptive positive 06/30/16 20:00 U Benzodiazepines Scrn Presumptive negative 06/30/16 20:00 Urine Cocaine Screen Presumptive negative 06/30/16 20:00 U Marijuana (THC) Screen Presumptive negative 06/30/16 20:00 Drugs of Abuse Note Disclamer 06/30/16 20:00 Plasma/Serum Alcohol < 0.01 gm% (0-0.07) 06/30/16 20:00 HIV 1&2 Antibody Rapid Non react (Non React) 07/02/16 16:34 HIV P24 Antigen Non react (Non React) 07/02/16 16:34
--- NOTE | 2016-07-03 12:56 | Progress Note ---
Assessment and Plan 35 YO M hx HTN/active methamphetamine abuse p/w acute onset L sided numbness/ weakness on 07/01 @ 11:15 w/ NIHSS 3 in ED and was given tPA @ 14:20 by tele- neurology. Syn suspicious for acute lacunar stroke d/t meth abuse. CTH x 2 and CTA H/N neg. LDL 140. Neg serologies for stroke in the young: ESR, HIV, Fibrinogen. Plan and Recommendation: 1. Current NIHSS 3 2. Telemetry bed w/ Q4 hour neuro checks 3. Brain imaging: MRI Brain w/o Juan Stroke Protocol 4. TTE to eval for possible cardiac source of embolism 5. Serum Labs: HgA1c, Stroke in [place] Eval: CRP, Coags, Toxicology, RPR/VDRL, If Febrile-BCx, LP; Hypercoag screen-Protein C Activity, Protein S Ag, Antithrombin III, Activated Protein C resistance, Factor V Leiden, RVVT or APLAbs, Beta-2 GP Ab, Prothrombin gene 61641T mutation, MTHFR C677T, HERB-1, JENNIE , Lactic Acid, Homocysteine, Cryoglobulin, Complement level, ANCA, Scl-70 Ab, anti-centromere Ab, Anti-Ro (SSA)/Anti-La (SSB), BETH, Antiproteinase 3, Lipoprotein A 6. Can lower MAPs by 10-15% daily to reach goal SBP 120-160 7. Secondary stroke prevention: ASA 325mg Daily x 1 then 81mg QDay & upgrade to full dose statin therapy (Crestor 20mg or 40mg OR Lipitor 40mg or 80mg Daily OR Zocor 40mg QDay) for goal LDL < 70. 8. F/E/N: isotonic IVF prn, prn replete, bedside speech/swallow eval prior to PO intake. 9. DVT Prophylaxis 10. Stroke education, PT/OT/Speech Therapy consults, CM evaluation 11. For any changes in neurologic status, pls obtain STAT CTH w/o contrast and call neurology Subjective Date of service: 07/03/16 Principal diagnosis: stroke s/p tpA Interval history: neurologically stable no new complaints Objective - Vital Sign Vital Signs - 12hr 07/03/16 07/03/16 07/03/16 01:00 02:00 03:00 Temperature Pulse Rate 62 52 L 59 L Respiratory 14 16 16 Rate Blood Pressure 120/83 134/73 133/78 O2 Sat by Pulse 97 92 89 Oximetry 07/03/16 07/03/16 07/03/16 04:00 04:15 05:00 Temperature 97.8 F Pulse Rate 53 L 54 L 54 L Respiratory 15 13 Rate Blood Pressure 128/82 126/83 O2 Sat by Pulse 100 93 Oximetry 07/03/16 07/03/16 07/03/16 06:00 07:00 08:00 Temperature 97.7 F Pulse Rate 53 L 59 L 55 L Respiratory 19 15 15 Rate Blood Pressure 138/82 126/78 126/82 O2 Sat by Pulse 92 83 L 100 Oximetry 07/03/16 07/03/16 07/03/16 08:05 09:01 10:00 Temperature Pulse Rate 63 59 L Respiratory 16 15 Rate Blood Pressure 126/82 128/74 O2 Sat by Pulse 98 98 95 Oximetry 07/03/16 07/03/16 11:07 12:00 Temperature Pulse Rate 77 Respiratory 17 Rate Blood Pressure 132/79 O2 Sat by Pulse 98 Oximetry - General Apperance Constitutional: comfortable - EENT EENT: ATNC, PERRL, mucous membranes moist, hearing intact, vision intact - Respiratory Respiratory: chest non-tender, normal breath sounds, no respiratory distress - Cardiovascular Cardiovascular: regular rate Extremities: no peripheral edema bilat, no clubbing, cyanosis, no inflammation, no ischemia or petechiae - Gastrointestinal Gastrointestinal: normoactive bowel sounds, soft, non-distended - Integumentary Integumentary: normal - Neurologic Cranial nerve examination: PERRL, EOMI, VFF, V1/V2/V3 grossly intact, tongue midline, intact, intact shoulder shrug, Intact Vestibulo-ocular r, intact corneal reflex, facial droop (mild on L), normal palatal elevation Speech examination: intact Motor examination - right side: 5/5: biceps, triceps, wrist flexion, wrist extension, mica inspector, hip flexors, knee extensors, dorsiflexion, toe extension (EHL) , plantarflexion Motor examination - left side: 4/5: biceps, triceps, wrist flexion, wrist extension, mica inspector, 5/5: hip flexors, knee extensors, dorsiflexion, toe extension ( EHL), plantarflexion Detailed sensory examination: light touch (decr on L), temperature (decr on L) - Laboratory Findings CBC and BMP: 07/02/16 03:24 07/02/16 03:24 Abnormal Lab Findings: Abnormal Labs 07/02/16 07/02/16 03:24 16:34 RBC 5.57 H Hct 46.5 H MCH 27 L Lymph % (Auto) 42.3 H [place] % (Auto) 8.7 H LDL Cholesterol Direct 140 H
--- NOTE | 2016-07-03 14:08 | Progress Note ---
Assessment and Plan 35 y/o male, with syncopal event, admitted as code stroke to ICU status post TPA , also with some SI and committed as a 1013, now with worsening left sided weakness 1. Follow neurology recs 2. Discussed on Interdisciplinary rounds, asked nursing to speak with IMS about downgrading to floor status as their are no tele beds available 3. BP has been stable, no severe spikes or significantly low drops 4. Will sign off, please reconsult if needed. Subjective Date of service: 07/03/16 Principal diagnosis: stroke s/p tpA Interval history: Remains in ICU but clinically stable. Awaiting MRI. Neurology has seen and left recs. Objective - Constitutional Vitals: Vital Signs - 12hr 07/03/16 07/03/16 07/03/16 03:00 04:00 04:15 Temperature 97.8 F Pulse Rate 59 L 53 L 54 L Respiratory 16 15 Rate Blood Pressure 133/78 128/82 O2 Sat by Pulse 89 100 Oximetry 07/03/16 07/03/16 07/03/16 05:00 06:00 07:00 Temperature Pulse Rate 54 L 53 L 59 L Respiratory 13 19 15 Rate Blood Pressure 126/83 138/82 126/78 O2 Sat by Pulse 93 92 83 L Oximetry 07/03/16 07/03/16 07/03/16 08:00 08:05 09:01 Temperature 97.7 F Pulse Rate 55 L 63 Respiratory 15 16 Rate Blood Pressure 126/82 126/82 O2 Sat by Pulse 100 98 98 Oximetry 07/03/16 07/03/16 07/03/16 10:00 11:07 12:00 Temperature 98.7 F Pulse Rate 59 L 77 Respiratory 15 17 Rate Blood Pressure 128/74 132/79 O2 Sat by Pulse 95 98 Oximetry General appearance: Present: no acute distress - EENT Eyes: PERRL, EOM intact ENT: hearing intact, clear oral mucosa - Neck Neck: supple, normal ROM - Respiratory Respiratory effort: normal Respiratory: bilateral: CTA - Cardiovascular Rhythm: regular Heart Sounds: Present: S1 & S2 Extremities: no ischemia - Gastrointestinal General gastrointestinal: Present: soft, non-tender, other (obese) Rectal Exam: deferred - Genitourinary Male genitourinary: deferred - Musculoskeletal Musculoskeletal: left sided weakness - Labs CBC & Chem 7: 07/02/16 03:24 07/02/16 03:24 Labs: Abnormal lab results 07/02/16 Range/Units 16:34 LDL Cholesterol Direct 140 H (50-130) mg/dL
--- NOTE | 2016-07-03 14:20 | Magnetic Resonance Report ---
MRI of the brain without contrast. History: Stroke. Procedure: Routine brain protocol without contrast. Findings: The posterior fossa is normal. The ventricles are normal in size and contour. There are no masses or extra-axial collections. The morelos-white matter junction is normal. There is no restricted diffusion. The pituitary gland appears normal. The visualized extracranial structures appear normal. Impression: Negative study.
--- NOTE | 2016-07-03 14:21 | Magnetic Resonance Report ---
MRA of the [place]. History: Stroke. Procedure: 3-D [id number] technique. Findings: The visualized internal carotid arteries are normal. Anterior and middle cerebral arteries and branches appear normal. The posterior circulation is unremarkable. The vertebral arteries are symmetrical. There is no evidence of AVM or aneurysm. Impression: Normal study.
--- NOTE | 2016-07-03 16:00 | Event Note ---
Date: 07/03/16 IPR F/U. CVA work-up negative; independent with PT for bed mobility, transfers , and gait. No further therapy needs at this time. Ongoing medical management for primary team. Will sign off.
[2016-07-03] MEDS ORDERED: ZOCOR PO SCH (22:00)
[2016-07-03] MEDS: LOVENOX SUB-Q SCH (22:12)
[2016-07-03] MEDS: BENADRYL PO SCH (22:12)
--- NOTE | 2016-07-04 10:34 | Discharge Summary ---
Providers - Providers Date of Admission: 07/01/16 15:14 Attending physician: NITESH DELCID MD 07/01/16 16:18 Consult to Physician [CONS] Routine Consulting Provider: VAIBHAV JARAMILLO Reason For Exam: Ischemic stroke Place consult to:: Dr. Vaibhav Jaramillo Notified:: Dr. Vaibhav Jaramillo Phone number called:: [phone] Was contact made?: Yes If yes, spoke with:: Dr. Vaibhav Jaramillo Time called:: 07:45 07/01/16 16:30 Speech Therapy Evaluation and Treat [CONS] Routine Reason For Exam: Ischemic Stroke 07/02/16 12:15 Consult Acute Rehabilitation [CONS] Routine Consulting Provider: SID JONES Reason For Exam: Stroke with left hemiparesis 07/02/16 12:16 Physical Therapy Evaluation and Treat [CONS] Routine Comment: Reason For Exam: debility 07/03/16 10:38 Occupational Therapy Evaluate and Treat [CONS] Routine Comment: Reason For Exam: Neuro deficits Physical Therapy Evaluation and Treat [CONS] Routine Comment: Reason For Exam: Neuro deficits 07/04/16 09:05 Consult to Mental Health [CONS] Stat Reason For Exam: drug overdose Place consult to:: Juan Notified:: yes Phone number called:: [phone] Was contact made?: Yes If yes, spoke with:: Juan Time called:: 09:12 Primary care physician: LEAK DETECTOR Hospitalization Condition: Good Hospital course: 35-year-old male presented to the ED via ambulance with complaints of passing out at [facility] yesterday while shopping while shopping. Patient reported that he was very dehydrated and didn't know what happened when he woke up he was in the ambulance feeling dizzy, chest pains, short of breath and high blood pressure. Patient reported while he was in the emergency room awaiting for psych evaluation today, he started feeling left-sided weakness. After Head CT, Pt received TPA while in the ED. Patient has a past medical history of hypertension, appendectomy 2001, depression, hallucination due to illicit drug use. Patient denies headache, nausea, vomiting, chest pain and abdomen pain. Patient reported he was here at the hospital 3 weeks ago for [address], he was acting crazy and hallucinating. Pt was then transferred to [facility] where he was discharged. Pt is positive for amphetamines. On initial exam, he was oriented 3, and had mild left upper extremity weakness and mild left facial droop After receiving TPA in the ED, he was admitted to the ICU. He was observed, had frequent neuro checks, repeat CT of his head did not show any hemorrhage. He went on to have an extensive workup that was mostly negative but did show hyperlipidemia. He was put on appropriate blood pressure medications, and statins. He was counseled about cessation of tobacco, he was also seen by mental health who deemed him to not be a risk to himself, difficulty 1013 was discontinued. He went on to have a repeat MRI of his head and neck with contrast, this also failed to show any lesions in brain or spinal. His medications were optimized prior to discharge. with regards to dysphasia he was seen by speech therapy who recommended a pured diet. Discharge diagnoses 1. Acute ischemic stroke with infarct 2. htn 3. Tobacco abuse 4. Polysubstance abuse 5. Toxic encephalopathy 6. Dysphasia 7. Major depression 8. Hyperlipidemia Disposition: DC/TX PSY HOSP/PSY UNIT Time spent for discharge: 35 minutes Core Measure Documentation - Palliative Care Palliative Care/ Comfort Measures: Not Applicable - Core Measures Any of the following diagnoses?: stroke - Stroke Discharge Requirements Statin for LDL = or >70 mg/dl on DC: Yes Anticoag for atrial fib/atrial flutter: Not Applicable Antithrombotic for ischemic stroke: No Reason for no antithrombotic on DC: Not Indicated Exam - Constitutional Vitals: Temp Pulse Resp BP Pulse Ox 98.3 F 66 18 130/76 100 07/04/16 07:53 07/03/16 19:50 07/03/16 19:50 07/03/16 19:54 07/03/16 15:41 General appearance: Present: no acute distress, well-nourished - EENT Eyes: Present: PERRL ENT: hearing intact, clear oral mucosa - Neck Neck: Present: supple, normal ROM - Respiratory Respiratory effort: normal Respiratory: bilateral: CTA - Cardiovascular Heart Sounds: Present: S1 & S2. Absent: rub, click - Extremities Extremities: pulses symmetrical, No edema Peripheral Pulses: within normal limits - Abdominal General gastrointestinal: Present: soft, non-tender, non-distended, normal bowel sounds Male genitourinary: Present: normal - Integumentary Integumentary: Present: clear, warm, dry - Musculoskeletal Musculoskeletal: gait normal, strength equal bilaterally - Psychiatric Psychiatric: appropriate mood/affect, intact judgment & insight - Neurologic Neurologic: CNII-XII intact, focal deficits (mild right upper extremity weakness ), moves all extremities Plan Follow up with: PRIMARY CARE,MD [Primary Care Provider] - 3-5 Days Prescriptions: AtorvaSTATin [Lipitor] 40 mg PO QHS #30 tablet Aspirin EC [Aspirin Enteric Coated TAB] 81 mg PO QDAY #30 tablet. Sertraline [Zoloft] 50 mg PO QDAY #30 tablet
--- NOTE | 2016-07-04 10:57 | Progress Note ---
Assessment and Plan 35 YO M hx HTN/active methamphetamine abuse p/w acute onset L sided numbness/ weakness on 07/01 @ 11:15 w/ NIHSS 3 in ED and was given tPA @ 14:20 by tele- neurology. Syn initially suspicious for acute lacunar stroke d/t meth abuse but MRI Brain no acute findings. Aslo CTH x 2, CDs, TTE, CTA H/N neg. LDL 140. Neg serologies for stroke in the young: ESR, HIV, Fibrinogen. I am now more suspicious for complicated migraine as pt does affirm R hemicranial pulsatile CARUOS. Plan and Recommendation: 1. Current NIHSS 3 2. Telemetry bed w/ Q4 hour neuro checks 3. Repeat Brain imaging: MRI Brain w/o Juan Stroke Protocol & MRI C-spine to r/ o other lesions 4. Serum Labs: HgA1c, Stroke in [place] Eval: CRP, Coags, Toxicology, RPR/VDRL, If Febrile-BCx, LP; Hypercoag screen-Protein C Activity, Protein S Ag, Antithrombin III, Activated Protein C resistance, Factor V Leiden, RVVT or APLAbs, Beta-2 GP Ab, Prothrombin gene 22535M mutation, MTHFR C677T, HERB-1, JENNIE , Lactic Acid, Homocysteine, Cryoglobulin, Complement level, ANCA, Scl-70 Ab, anti-centromere Ab, Anti-Ro (SSA)/Anti-La (SSB), BETH, Antiproteinase 3, Lipoprotein A 5. Can lower MAPs by 10-15% daily to reach goal SBP 120-160 6. ? stroke prevention: ASA 325mg Daily x 1 then 81mg QDay & upgrade to full dose statin therapy (Crestor 20mg or 40mg OR Lipitor 40mg or 80mg Daily OR Zocor 40mg QDay) for goal LDL < 70. 7. For migraine: Decadron 4mg IV BID x up to 6 doses and VPA 500mg IV Q8hrs x 3 doses, Fioricet prn 8. F/E/N: isotonic IVF prn, prn replete, bedside speech/swallow eval prior to PO intake. 9. DVT Prophylaxis 10. Stroke education, PT/OT/Speech Therapy consults, CM evaluation 11. For any changes in neurologic status, pls obtain STAT CTH w/o contrast and call neurology Subjective Date of service: 05/25/17 Principal diagnosis: ? stroke s/p tpA Interval history: no new complaints. does affirm CARUSO. MRIs neg. Objective - Vital Sign Vital Signs - 12hr 07/04/16 07:53 Temperature 98.3 F - General Apperance Constitutional: comfortable - EENT EENT: ATNC, PERRL, mucous membranes moist, hearing intact, vision intact - Respiratory Respiratory: chest non-tender, normal breath sounds, no respiratory distress - Cardiovascular Cardiovascular: regular rate Extremities: no peripheral edema bilat, no clubbing, cyanosis, no inflammation, no ischemia or petechiae - Gastrointestinal Gastrointestinal: normoactive bowel sounds, soft, non-distended - Integumentary Integumentary: normal - Neurologic Cranial nerve examination: PERRL, EOMI, V1/V2/V3 grossly intact, face symmetric , tongue midline, intact, intact shoulder shrug, Intact Vestibulo-ocular r, intact corneal reflex, facial droop (mild on L) Speech examination: intact Motor examination - right side: 5/5: biceps, triceps, wrist flexion, wrist extension, creative services specialist, hip flexors, knee extensors, dorsiflexion, toe extension (EHL) , plantarflexion Motor examination - left side: 4/5: biceps, triceps, wrist flexion, wrist extension, creative services specialist, 5/5: hip flexors, knee extensors, dorsiflexion, toe extension ( EHL), plantarflexion Detailed sensory examination: light touch (decr on L) Reflex and gait examination: intact Reflexes: 2+: ankle, bicep, knee, tricep - Musculoskeletal Musculoskeletal: no fluid collection, no pain, normal range of motion - Psychiatric Psychiatric: mood/affect appropriate, cooperative - Laboratory Findings CBC and BMP: 07/02/16 03:24 07/02/16 03:24 Abnormal Lab Findings: Abnormal Labs 07/02/16 07/02/16 07/04/16 03:24 16:34 04:04 RBC 5.57 H Hct 46.5 H MCH 27 L Lymph % (Auto) 42.3 H [place] % (Auto) 8.7 H LDL Cholesterol Direct 140 H HDL Cholesterol 27 L
[2016-07-04] MEDS: ZOLOFT PO SCH (11:07)
[2016-07-04] MEDS: BABY ASPIRIN PO SCH (11:07)
--- NOTE | 2016-07-04 13:14 | Event Note ---
Date: 07/04/16 Patient remains in unit secondary to need for One-to-one status. No acute critical issues.
--- NOTE | 2016-07-04 15:47 | Progress Note ---
Subjective - Reason for Consult Consult date: 07/04/16 Reason for consult: Psychiatry Follow-up - Chief Complaint Chief complaint: "I am good" Patient is a 35-year-old male with history of hypertension, anxiety, drug abuse presenting today because of left-sided chest pain. Today patient is calm and cooperative during assessment. He stated that he would like to get off the drugs. He stated that his drug use is driving away his immediate family, and that has to stop. Upon arrival to his room, patient was working with PT. His left hand rack pusher was moderate, much better than previous assessment on 07/01/2016. He denies SI/HI's, AVH's, or depression symptoms. Mental Status Exam - Vital signs Last Vital Signs Temp 98.5 F 07/04/16 12:00 Pulse 66 07/03/16 19:50 Resp 18 07/03/16 19:50 BP 130/76 07/03/16 19:54 Pulse Ox 97 07/04/16 12:38 - Exam Narrative exam: MSE: Appearance: calm, cooperative Behavior: good eye contact Speech: regular rate and tone Mood: "I am so much better" Affect: congruent to mood Thought Process: linear Thought Content: denies SI/HI's and AVH's Motor Activity: lying down in bed Cognition: A/Ox3 Insight: fair Judgment: fair Assessment and Plan Impression: Patient is a 35-year-old male with history of hypertension, anxiety , drug abuse presenting today because of left-sided chest pain. Today patient is calm and cooperative during assessment. He stated that he would like to get off the drugs. He stated that his drug use is driving away his immediate family , and that has to stop. Patient is no threat to self. Patient will reside with his mother Liz once discharged. Recommendation/Plan: Rescind 1013. Outpatient rehab/psy services information given to patient for his local area ([facility]). Discussed with the patient how important for him to stay of the stay street drugs. Also, we discussed generalized coping skills with patient. Continue Zoloft 50 mg PO daily for depression.
--- NOTE | 2016-07-04 17:38 | Progress Note ---
Assessment and Plan Assessment and plan: 35-year-old male presented to the ED via ambulance with complaints of passing out at [employer] yesterday while shopping while shopping. Patient reported that he was very dehydrated and didn't know what happened when he woke up he was in the ambulance feeling dizzy, chest pains, short of breath and high blood pressure. Patient reported while he was in the emergency room awaiting for psych evaluation today, he started feeling left-sided weakness. After Head CT, Pt received TPA while in the ED. Patient has a past medical history of hypertension, appendectomy 2001, depression, hallucination due to illicit drug use. Patient denies headache, nausea, vomiting, chest pain and abdomen pain. Patient reported he was here at the hospital 3 weeks ago for [address], he was acting crazy and hallucinating. Pt was then transferred to [facility] where he was discharged. Pt is positive for amphetamines. On exam, patient A+Ox3, moves all extremities with left-sided weakness and mild facial left droop when smiling. 1. Ischemic stroke with infarcts - TPA administered, neurology consult appreciated, repeat CTH wnl, MRI/MRA head and negative, carotid dopplers show no occlusion, Echo unremarkable, continue statin, aspirin, medical management, follow-up JENNIE Neurology input appreciated, will obtain MRI head and neck with dad, transferred to telemetry with every 4 neuro checks. 2. Hypertension - Controlled. Hydralazine PRN with target of 165-180, social services counselor pt on WT loss and diet management 3. Tobacco Use - Smoking cessation and social services counselor provided 4. Migraine headaches Decadron ordered per neurology 5. Depression -psych input appreciated, patient was depressed about his use of illicit drugs, however he is not suicidal and not a risk to himself, 1013 discontinued 6. Metabolic encephalopathy Due to illicit drug abuse, now resolved History Interval history: Patient reports that left upper extremity weakness is improving, denied confusion, currently denies suicide ideation Hospitalist Physical - Physical exam Narrative exam: General: Patient appears well in no distress HEENT: MMM, EOMI cardiac: S1-S2 heard lungs: clear to auscultation, abdomen: soft, nontender, nondistended bowel sounds positive extremities: no edema clubbing or cyanosis Skin: no rash or lesion Neuro: Mild left upper extremity hemiparesis Psych: appropriate behavior and mood, cognition intact - Constitutional Vitals: Temp Pulse Resp BP Pulse Ox 97.9 F 66 18 130/76 97 07/04/16 15:48 07/03/16 19:50 07/03/16 19:50 07/03/16 19:54 07/04/16 12:38 General appearance: Present: no acute distress Results - Labs CBC & Chem 7: 07/02/16 03:24 07/02/16 03:24 Labs: Laboratory Last Values WBC 6.6 K/mm3 (4.5-11.0) 07/02/16 03:24 RBC 5.57 M/mm3 (3.65-5.03) H 07/02/16 03:24 Hgb 15.2 gm/dl (11.8-15.2) 07/02/16 03:24 Hct 46.5 % (35.5-45.6) H 07/02/16 03:24 MCV 84 fl (84-94) 07/02/16 03:24 MCH 27 pg (28-32) L 07/02/16 03:24 MCHC 33 % (32-34) 07/02/16 03:24 RDW 13.3 % (13.2-15.2) 07/02/16 03:24 Plt Count 167 K/mm3 (140-440) 07/02/16 03:24 Lymph % (Auto) 42.3 % (13.4-35.0) H 07/02/16 03:24 [place] % (Auto) 8.7 % (0.0-7.3) H 07/02/16 03:24 Eos % (Auto) 1.9 % (0.0-4.3) 07/02/16 03:24 Baso % (Auto) 0.3 % (0.0-1.8) 07/02/16 03:24 Lymph # 2.8 K/mm3 (1.2-5.4) 07/02/16 03:24 [place] # 0.6 K/mm3 (0.0-0.8) 07/02/16 03:24 Eos # 0.1 K/mm3 (0.0-0.4) 07/02/16 03:24 Baso # 0.0 K/mm3 (0.0-0.1) 07/02/16 03:24 Seg Neutrophils % 46.8 % (40.0-70.0) 07/02/16 03:24 Seg Neutrophils # 3.1 K/mm3 (1.8-7.7) 07/02/16 03:24 ESR 3 mm/Hr (0-20) 07/02/16 16:34 PT 14.9 Sec. (12.2-14.9) 07/01/16 12:25 INR 1.18 (0.87-1.13) H 07/01/16 12:25 APTT 27.6 Sec. (24.2-36.6) 07/01/16 12:25 Fibrinogen 324 mg/dl (211-480) 07/02/16 16:34 Sodium 138 mmol/L (137-145) 07/02/16 03:24 Potassium 3.7 mmol/L (3.6-5.0) 07/02/16 03:24 Chloride 102.0 mmol/L (98-107) 07/02/16 03:24 Carbon Dioxide 24 mmol/L (22-30) 07/02/16 03:24 Anion Gap 16 mmol/L 07/02/16 03:24 BUN 14 mg/dL (9-20) 07/02/16 03:24 Creatinine 0.9 mg/dL (0.8-1.5) 07/02/16 03:24 Estimated GFR > 60 ml/min 07/02/16 03:24 BUN/Creatinine Ratio 15.55 % 07/02/16 03:24 Glucose 94 mg/dL (75-100) 07/02/16 03:24 POC Glucose 87 (70-105) 07/01/16 13:12 Lactic Acid 0.90 mmol/L (0.7-2.0) 07/02/16 16:34 Calcium 8.6 mg/dL (8.4-10.2) 07/02/16 03:24 Troponin T < 0.010 ng/mL (0.00-0.029) 07/01/16 01:03 C-Reactive Protein 0.60 mg/dL (0.00-1.30) 07/02/16 16:34 Triglycerides 114 mg/dL (2-149) 07/04/16 04:04 Cholesterol 155 mg/dL (50-199) 07/04/16 04:04 LDL Cholesterol Direct 106 mg/dL (50-130) 07/04/16 04:04 HDL Cholesterol 27 mg/dL (40-59) L 07/04/16 04:04 Cholesterol/HDL Ratio 5.74 % 07/04/16 04:04 Urine Color Yellow (Yellow) 06/30/16 20:00 Urine Turbidity Clear (Clear) 06/30/16 20:00 Urine pH 5.0 (5.0-7.0) 06/30/16 20:00 Ur Specific [place] 1.029 (1.003-1.030) 06/30/16 20:00 Urine Protein 30 mg/dl mg/dL (Negative) 06/30/16 20:00 Urine Glucose (UA) Neg mg/dL (Negative) 06/30/16 20:00 Urine Ketones Tr mg/dL (Negative) 06/30/16 20:00 Urine Blood Neg (Negative) 06/30/16 20:00 Urine Nitrite Neg (Negative) 06/30/16 20:00 Urine Bilirubin Neg (Negative) 06/30/16 20:00 Urine Urobilinogen 2.0 mg/dL (<2.0) 06/30/16 20:00 Ur Leukocyte Esterase Tr (Negative) 06/30/16 20:00 Urine WBC (Auto) 13.0 /HPF (0.0-6.0) H 06/30/16 20:00 Urine RBC (Auto) 3.0 /HPF (0.0-6.0) 06/30/16 20:00 U Epithel Cells (Auto) 2.0 /HPF (0-13.0) 06/30/16 20:00 Urine Bacteria (Auto) 1+ /HPF (Negative) 06/30/16 20:00 Urine Mucus 3+ /HPF 06/30/16 20:00 Salicylates < 0.3 mg/dL (2.8-20.0) L 06/30/16 20:00 Urine Opiates Screen Presumptive negative 06/30/16 20:00 Urine Methadone Screen Presumptive negative 06/30/16 20:00 Acetaminophen < 15.0 ug/mL (10.0-30.0) 06/30/16 20:00 Ur Barbiturates Screen Presumptive negative 06/30/16 20:00 Ur Phencyclidine Scrn Presumptive negative 06/30/16 20:00 Ur Amphetamines Screen Presumptive positive 06/30/16 20:00 U Benzodiazepines Scrn Presumptive negative 06/30/16 20:00 Urine Cocaine Screen Presumptive negative 06/30/16 20:00 U Marijuana (THC) Screen Presumptive negative 06/30/16 20:00 Drugs of Abuse Note Disclamer 06/30/16 20:00 Plasma/Serum Alcohol < 0.01 gm% (0-0.07) 06/30/16 20:00 RPR Nonreactive (Nonreactive) 07/02/16 16:34 HIV 1&2 Antibody Rapid Non react (Non React) 07/02/16 16:34 HIV P24 Antigen Non react (Non React) 07/02/16 16:34
[2016-07-04] MEDS ORDERED: FIORICET PO PRN (22:27)
[2016-07-04] MEDS: LOVENOX SUB-Q SCH (23:00)
[2016-07-04] MEDS: BENADRYL PO SCH (23:00)
[2016-07-04] MEDS: DECADRON IV SCH (23:01)
[2016-07-04] MEDS: DepaCON 500 MG in NACL 0.9% 100 ML IV SCH (23:19)
[2016-07-05] MEDS: DepaCON 500 MG in NACL 0.9% 100 ML IV SCH ×2 (05:22→18:00)
[2016-07-05] MEDS: ZOLOFT PO SCH (09:25)
[2016-07-05] MEDS: PERCOCET 5/325 PO PRN (09:25)
[2016-07-05] MEDS: BABY ASPIRIN PO SCH (09:25)
[2016-07-05] MEDS: DECADRON IV SCH ×2 (09:26→22:00)
[2016-07-05 09:44] LABS: Myeloperoxidase Antibody <1.0 AI (<1.0)
--- NOTE | 2016-07-05 11:19 | Progress Note ---
Assessment and Plan 35 YO M hx HTN/active methamphetamine abuse p/w acute onset L sided numbness/ weakness on 07/01 @ 11:15 w/ NIHSS 3 in ED and was given tPA @ 14:20 by tele- neurology. Syn initially suspicious for acute lacunar stroke d/t meth abuse but MRI Brain no acute findings. Aslo CTH x 2, CDs, TTE, CTA H/N neg. LDL 140. Neg serologies for stroke in the young: ESR, HIV, Fibrinogen. I am now more suspicious for complicated migraine as pt does affirm R hemicranial pulsatile CARUSO. Plan and Recommendation: 1. Current NIHSS 3 2. Telemetry bed w/ Q4 hour neuro checks 3. Repeat Brain imaging: MRI Brain w/o Juan Stroke Protocol & MRI C-spine to r/ o other lesions 4. Serum Labs: HgA1c, Stroke in Young Eval: CRP, Coags, Toxicology, RPR/VDRL, If Febrile-BCx, LP; Hypercoag screen-Protein C Activity, Protein S Ag, Antithrombin III, Activated Protein C resistance, Factor V Leiden, RVVT or APLAbs, Beta-2 GP Ab, Prothrombin gene [id number] mutation, MTHFR C677T, HERB-1, JENNIE , Lactic Acid, Homocysteine, Cryoglobulin, Complement level, ANCA, Scl-70 Ab, anti-centromere Ab, Anti-Ro (SSA)/Anti-La (SSB), BETH, Antiproteinase 3, Lipoprotein A 5. Can lower MAPs by 10-15% daily to reach goal SBP 120-160 6. ? stroke prevention: ASA 325mg Daily x 1 then 81mg QDay & upgrade to full dose statin therapy (Crestor 20mg or 40mg OR Lipitor 40mg or 80mg Daily OR Zocor 40mg QDay) for goal LDL < 70. 7. For migraine: Decadron 4mg IV BID x up to 6 doses and VPA 500mg IV Q8hrs x 3 doses, Fioricet prn 8. F/E/N: isotonic IVF prn, prn replete, bedside speech/swallow eval prior to PO intake. 9. DVT Prophylaxis 10. Stroke education, PT/OT/Speech Therapy consults, CM evaluation 11. For any changes in neurologic status, pls obtain STAT CTH w/o contrast and call neurology 12. If above MRIs again neg for lesion, no neurologic contraindication to discharge w/ diagnosis of likely complicated migraine but can cont ASA/statin for protection Subjective Date of service: 07/05/16 Principal diagnosis: ? stroke s/p tpA Interval history: no new complaints. resting in bed. Objective - Vital Sign Vital Signs - 12hr 07/05/16 00:00 Pulse Rate 50 L - General Apperance Constitutional: comfortable - EENT EENT: ATNC, PERRL, mucous membranes moist, hearing intact, vision intact - Respiratory Respiratory: chest non-tender, normal breath sounds, no respiratory distress - Cardiovascular Cardiovascular: regular rate Extremities: no peripheral edema bilat, no clubbing, cyanosis, no inflammation, no ischemia or petechiae - Gastrointestinal Gastrointestinal: normoactive bowel sounds, soft, non-distended - Integumentary Integumentary: normal - Neurologic Cranial nerve examination: PERRL, EOMI, VFF, tongue midline, intact, intact shoulder shrug, Intact Vestibulo-ocular r, intact corneal reflex, facial droop ( on L), normal palatal elevation Speech examination: intact Detailed motor examination: grossly full strength in Motor examination - right side: 5/5: biceps, triceps, wrist flexion, wrist extension, time piece repairer, hip flexors, knee extensors, dorsiflexion, toe extension (EHL) , plantarflexion Motor examination - left side: 4/5: biceps, triceps, wrist flexion, wrist extension, time piece repairer, hip flexors, knee extensors, dorsiflexion, toe extension (EHL) , plantarflexion Detailed sensory examination: light touch (diminished on L) Reflex and gait examination: intact - Musculoskeletal Musculoskeletal: no fluid collection, no pain, normal range of motion - Psychiatric Psychiatric: mood/affect appropriate, cooperative - Laboratory Findings CBC and BMP: 07/02/16 03:24 07/02/16 03:24 Abnormal Lab Findings: Abnormal Labs 07/02/16 07/02/16 07/04/16 03:24 16:34 04:04 RBC 5.57 H Hct 46.5 H MCH 27 L Lymph % (Auto) 42.3 H [place] % (Auto) 8.7 H LDL Cholesterol Direct 140 H HDL Cholesterol 27 L
[2016-07-05 12:35] LABS: Protein S, Free 127 % normal (57-171); Protein S, Total 106 % (70-140)
--- NOTE | 2016-07-05 15:01 | Progress Note ---
Subjective - Reason for Consult Consult date: 07/05/16 Reason for consult: Psychiatry Follow-up - Chief Complaint Chief complaint: "I feel good" Patient is a 35-year-old male with history of hypertension, anxiety, drug abuse presenting today because of left-sided chest pain. Today patient is calm and cooperative during assessment. He stated that he look forward to being discharged today. He thanked me and the entire staff for all the support. He denies SI/HI's and AVH's. Mental Status Exam - Vital signs Last Vital Signs Temp 98.0 F 07/05/16 13:18 Pulse 77 07/05/16 13:18 Resp 18 07/05/16 13:18 BP 133/80 07/05/16 13:18 Pulse Ox 100 07/05/16 13:18 - Exam Narrative exam: MSE: Appearance: calm, cooperative Behavior: good eye contact Speech: regular rate and tone Mood: "good" Affect: congruent to mood Thought Process: linear Thought Content: denies SI/HI's and AVH's Motor Activity: lying down in bed Cognition: A/Ox3 Insight: fair Judgment: fair Assessment and Plan Impression: Patient is a 35-year-old male with history of hypertension, anxiety , drug abuse presenting today because of left-sided chest pain. Today patient is calm and cooperative during assessment. He stated that he look forward to being discharged today. Recommendation/Plan: Patient will follow-up with outpatient psy services/rehab services at the [facility]. Continue Zoloft 50 mg PO daily for depression.
--- NOTE | 2016-07-05 15:51 | Progress Note ---
Assessment and Plan Assessment and plan: 35-year-old male presented to the ED via ambulance with complaints of passing out at [employer] yesterday while shopping while shopping. Patient reported that he was very dehydrated and didn't know what happened when he woke up he was in the ambulance feeling dizzy, chest pains, short of breath and high blood pressure. Patient reported while he was in the emergency room awaiting for psych evaluation today, he started feeling left-sided weakness. After Head CT, Pt received TPA while in the ED. Patient has a past medical history of hypertension, appendectomy 2001, depression, hallucination due to illicit drug use. Patient denies headache, nausea, vomiting, chest pain and abdomen pain. Patient reported he was here at the hospital 3 weeks ago for [address], he was acting crazy and hallucinating. Pt was then transferred to [facility] where he was discharged. Pt is positive for amphetamines. On exam, patient A+Ox3, moves all extremities with left-sided weakness and mild facial left droop when smiling. 1. Ischemic stroke with infarcts - TPA administered, neurology consult appreciated, repeat CTH wnl, MRI/MRA head and negative, carotid dopplers show no occlusion, Echo unremarkable, continue statin, aspirin, medical management, follow-up JENNIE Neurology input appreciated, will repeat MRI head and neck with jimbo, continue neuro checks. 2. Hypertension - optimize meds, has been counseled on lifestyle changes 3. Tobacco Use - Smoking cessation and residence counselor provided 4. Migraine headaches Decadron ordered per neurology 5. Depression -psych input appreciated, patient was depressed about his use of illicit drugs, however he is not suicidal and not a risk to himself, 1013 discontinued 6. Metabolic encephalopathy Due to illicit drug abuse, now resolved 7. polysubstance abuse He has been counseled about cessation, he verbalized understanding History Interval history: Patient reports that left upper extremity weakness is improving, denied confusion, currently denies suicide ideation Hospitalist Physical - Physical exam Narrative exam: General: Patient appears well in no distress HEENT: MMM, EOMI cardiac: S1-S2 heard lungs: clear to auscultation, abdomen: soft, nontender, nondistended bowel sounds positive extremities: no edema clubbing or cyanosis Skin: no rash or lesion Neuro: Mild left upper extremity hemiparesis Psych: appropriate behavior and mood, cognition intact - Constitutional Vitals: Temp Pulse Resp BP Pulse Ox 98.0 F 77 18 133/80 100 07/05/16 13:18 07/05/16 13:18 07/05/16 13:18 07/05/16 13:18 07/05/16 13:18 General appearance: Present: no acute distress, well-nourished Results - Labs CBC & Chem 7: 07/02/16 03:24 07/02/16 03:24 Labs: Laboratory Last Values WBC 6.6 K/mm3 (4.5-11.0) 07/02/16 03:24 RBC 5.57 M/mm3 (3.65-5.03) H 07/02/16 03:24 Hgb 15.2 gm/dl (11.8-15.2) 07/02/16 03:24 Hct 46.5 % (35.5-45.6) H 07/02/16 03:24 MCV 84 fl (84-94) 07/02/16 03:24 MCH 27 pg (28-32) L 07/02/16 03:24 MCHC 33 % (32-34) 07/02/16 03:24 RDW 13.3 % (13.2-15.2) 07/02/16 03:24 Plt Count 167 K/mm3 (140-440) 07/02/16 03:24 Lymph % (Auto) 42.3 % (13.4-35.0) H 07/02/16 03:24 [place] % (Auto) 8.7 % (0.0-7.3) H 07/02/16 03:24 Eos % (Auto) 1.9 % (0.0-4.3) 07/02/16 03:24 Baso % (Auto) 0.3 % (0.0-1.8) 07/02/16 03:24 Lymph # 2.8 K/mm3 (1.2-5.4) 07/02/16 03:24 [place] # 0.6 K/mm3 (0.0-0.8) 07/02/16 03:24 Eos # 0.1 K/mm3 (0.0-0.4) 07/02/16 03:24 Baso # 0.0 K/mm3 (0.0-0.1) 07/02/16 03:24 Seg Neutrophils % 46.8 % (40.0-70.0) 07/02/16 03:24 Seg Neutrophils # 3.1 K/mm3 (1.8-7.7) 07/02/16 03:24 ESR 3 mm/Hr (0-20) 07/02/16 16:34 PT 14.9 Sec. (12.2-14.9) 07/01/16 12:25 INR 1.18 (0.87-1.13) H 07/01/16 12:25 APTT 27.6 Sec. (24.2-36.6) 07/01/16 12:25 Fibrinogen 324 mg/dl (211-480) 07/02/16 16:34 Lupus Anticoagulant see below 07/02/16 16:34 Protein C Antigen 102 % (70-140) 07/02/16 16:34 APC Resistance 5.0 ratio (>=2.1) 07/02/16 16:34 Free Protein S 127 % normal (57-171) 07/02/16 16:34 Total Protein S 106 % (70-140) 07/02/16 16:34 Factor V Activity 104 % (65-150) 07/02/16 16:34 Sodium 138 mmol/L (137-145) 07/02/16 03:24 Potassium 3.7 mmol/L (3.6-5.0) 07/02/16 03:24 Chloride 102.0 mmol/L (98-107) 07/02/16 03:24 Carbon Dioxide 24 mmol/L (22-30) 07/02/16 03:24 Anion Gap 16 mmol/L 07/02/16 03:24 BUN 14 mg/dL (9-20) 07/02/16 03:24 Creatinine 0.9 mg/dL (0.8-1.5) 07/02/16 03:24 Estimated GFR > 60 ml/min 07/02/16 03:24 BUN/Creatinine Ratio 15.55 % 07/02/16 03:24 Glucose 94 mg/dL (75-100) 07/02/16 03:24 POC Glucose 94 (70-105) 07/05/16 05:11 Lactic Acid 0.90 mmol/L (0.7-2.0) 07/02/16 16:34 Calcium 8.6 mg/dL (8.4-10.2) 07/02/16 03:24 Troponin T < 0.010 ng/mL (0.00-0.029) 07/01/16 01:03 C-Reactive Protein 0.60 mg/dL (0.00-1.30) 07/02/16 16:34 Triglycerides 114 mg/dL (2-149) 07/04/16 04:04 Cholesterol 155 mg/dL (50-199) 07/04/16 04:04 LDL Cholesterol Direct 106 mg/dL (50-130) 07/04/16 04:04 HDL Cholesterol 27 mg/dL (40-59) L 07/04/16 04:04 Cholesterol/HDL Ratio 5.74 % 07/04/16 04:04 Urine Color Yellow (Yellow) 06/30/16 20:00 Urine Turbidity Clear (Clear) 06/30/16 20:00 Urine pH 5.0 (5.0-7.0) 06/30/16 20:00 Ur Specific [place] 1.029 (1.003-1.030) 06/30/16 20:00 Urine Protein 30 mg/dl mg/dL (Negative) 06/30/16 20:00 Urine Glucose (UA) Neg mg/dL (Negative) 06/30/16 20:00 Urine Ketones Tr mg/dL (Negative) 06/30/16 20:00 Urine Blood Neg (Negative) 06/30/16 20:00 Urine Nitrite Neg (Negative) 06/30/16 20:00 Urine Bilirubin Neg (Negative) 06/30/16 20:00 Urine Urobilinogen 2.0 mg/dL (<2.0) 06/30/16 20:00 Ur Leukocyte Esterase Tr (Negative) 06/30/16 20:00 Urine WBC (Auto) 13.0 /HPF (0.0-6.0) H 06/30/16 20:00 Urine RBC (Auto) 3.0 /HPF (0.0-6.0) 06/30/16 20:00 U Epithel Cells (Auto) 2.0 /HPF (0-13.0) 06/30/16 20:00 Urine Bacteria (Auto) 1+ /HPF (Negative) 06/30/16 20:00 Urine Mucus 3+ /HPF 06/30/16 20:00 Salicylates < 0.3 mg/dL (2.8-20.0) L 06/30/16 20:00 Urine Opiates Screen Presumptive negative 06/30/16 20:00 Urine Methadone Screen Presumptive negative 06/30/16 20:00 Acetaminophen < 15.0 ug/mL (10.0-30.0) 06/30/16 20:00 Ur Barbiturates Screen Presumptive negative 06/30/16 20:00 Ur Phencyclidine Scrn Presumptive negative 06/30/16 20:00 Ur Amphetamines Screen Presumptive positive 06/30/16 20:00 U Benzodiazepines Scrn Presumptive negative 06/30/16 20:00 Urine Cocaine Screen Presumptive negative 06/30/16 20:00 U Marijuana (THC) Screen Presumptive negative 06/30/16 20:00 Drugs of Abuse Note Disclamer 06/30/16 20:00 Plasma/Serum Alcohol < 0.01 gm% (0-0.07) 06/30/16 20:00 Proteinase 3 (PR3) Ab <1.0 AI (<1.0) 07/02/16 16:34 Myeloperoxidase Ab <1.0 AI (<1.0) 07/02/16 16:34 Sjogren's Antibody <1.0 AI (<1.0) 07/02/16 16:34 Scl-70 Scleroderma Ab <1.0 AI (<1.0) 07/02/16 16:34 Centromere B Antibody <1.0 AI (<1.0) 07/02/16 16:34 Cardiolipid IgG Ab <14 GPL (<=14) 07/02/16 16:34 Cardiolipid IgA Ab <11 APL (<=11) 07/02/16 16:34 Cardiolipid IgM Ab <12 MPL (<=12) 07/02/16 16:34 Complement C3 144 mg/dL (90-180) 07/02/16 16:34 Complement C4 25 mg/dL (16-47) 07/02/16 16:34 RPR Nonreactive (Nonreactive) 07/02/16 16:34 HIV 1&2 Antibody Rapid Non react (Non React) 07/02/16 16:34 HIV P24 Antigen Non react (Non React) 07/02/16 16:34
--- NOTE | 2016-07-05 18:46 | Magnetic Resonance Report ---
FINAL REPORT EXAM: MR BRAIN WO CON HISTORY: L sided weakness/numbness intitial MRI Brain neg TECHNIQUE: Multiplanar multisequence brain MR imaging without IV contrast. PRIORS: Head CT 07/01/2016 FINDINGS: The included air filled sinuses contain no acute fluid level. The brain is without mass, mass effect, hemorrhage, or acute infarct. There is no midline shift or brain edema. There are no areas of brain restricted diffusion to suggest an acute ischemic infarct. The ventricles and sulci are age-appropriate. IMPRESSION: No acute CVA or brain mass
[2016-07-05] MEDS: LOVENOX SUB-Q SCH (22:00)
[2016-07-05] MEDS: BENADRYL PO SCH (22:00)
[2016-07-06] MEDS: ZOLOFT PO SCH (09:41)
[2016-07-06] MEDS: BABY ASPIRIN PO SCH (09:41)
[2016-07-06] MEDS: DECADRON IV SCH (09:41)
[2016-07-06] MEDS ORDERED: ATIVAN IV ONE ×2 (10:03→15:00)
[2016-07-06 14:30] VITALS: BP 121/76
--- NOTE | 2016-07-06 16:08 | Magnetic Resonance Report ---
FINAL REPORT EXAM: MR CERVICAL SPINE WO CON HISTORY: RUE weakness TECHNIQUE: MRI examination of the cervical spine without IV contrast PRIORS: None. FINDINGS: Patient motion artifact degrades image quality and limits the examination. Cervical cord and visualized upper portion of the thoracic cord: Normal Acute bone marrow edema: None Vertebral compression fracture: None Anterolisthesis: None Retrolisthesis: None Disc narrowing: C4-5 slight Diffuse disc bulge: C3-4 slight, C5-6 moderate, C6-7 moderate. C5-6 disc bulge and C6-7 disc bulges are slightly more focal and predominate to the right of midline Focal disc protrusion: None Central canal stenosis: Slight to the right of midline at C5-6 and C6-7 There is multilevel degenerative hypertrophic changes at the facet joints, uncinate joints, and vertebral endplates. Along with disc bulge, these contribute to neural foraminal stenosis. Right neural foraminal stenosis: C4-5 slight, C5-6 moderate, C6-7 slight Left neural foraminal stenosis: C5-6 slight, C6-7 moderate IMPRESSION: Motion artifact limits examination Multilevel degenerative change, diffuse disc bulge, central canal stenosis, and neural foraminal stenosis
== END 2016-07-06 17:21 | DRG 64 ==
LOC: ED 19:43 → EEVIPCON 19:43 → CC1 07-01 15:14 → UNDOADMIN 07-01 15:14 → 4A 07-01 15:14 → UNDOADMIN 07-01 16:22 → 4A 07-01 16:22 → CC1 07-01 19:40 → 4A 07-04 22:26
PROVIDERS: ADMIT Internal Medicine; ATTEND Internal Medicine
DX: I63.9 Cerebral infarction, unspecified (principal); G92 Toxic encephalopathy; R44.2 Other hallucinations; I10 Essential (primary) hypertension; F41.9 Anxiety disorder, unspecified; E86.0 Dehydration; F32.9 Major depressive disorder, single episode, unspecified; F17.200 Nicotine dependence, unspecified, uncomplicated; R13.13 Dysphagia, pharyngeal phase; F19.10 Other psychoactive substance abuse, uncomplicated; E78.5 Hyperlipidemia, unspecified; G43.909 Migraine, unspecified, not intractable, without status migrainosus; R29.810 Facial weakness; Z71.6 Tobacco abuse counseling; Z90.49 Acquired absence of other specified parts of digestive tract; Z92.82 Status post administration of tPA (rtPA) in a different facility within the last 24 hours prior to admission to current facility; Z28.21 Immunization not carried out because of patient refusal; Z82.3 Family history of stroke; Z83.3 Family history of diabetes mellitus; Z82.69 Family history of other diseases of the musculoskeletal system and connective tissue; Z82.49 Family history of ischemic heart disease and other diseases of the circulatory system
CPT/HCPCS: 36415; 70450; 70496; 70498; 70544; 70551; 71010; 72141; 80048; 80061; 80307; 80320; 81001; 82024; 82140; 82164; 82962; 83516; 83721; 84484; 85025; 85027; 85210; 85220; 85305; 85307; 85384; 85610; 85613; 85652; 85730; 86021; 86038; 86140; 86147; 86160; 86235; 86592; 87806; 90686; 93005; 93010; 93306; 93880; 94760; 96361; 96374; 96375; 96376; 99291; 99292; 99406; A9270-GY; G0480; G8978-GP; G8979-GP; J1100; J1650; J2060; J2997; J7030; Q9967

== ENCOUNTER 2016-07-18 04:48 | Emergency (ER) | payer SELFPAY ==
[2016-07-18 05:24] LABS: Basophils % (Auto) 0.4 % (0.0-1.8); Hematocrit 47.1 % (35.5-45.6); Hemoglobin 15.6 gm/dl (11.8-15.2); Mean Corpuscular HGB Conc 33 % (32-34); Mean Corpuscular Hemoglobin 27 pg (28-32); Mean Corpuscular Volume 83 fl (84-94); Platelet Count 240 K/mm3 (140-440); Red Cell Distribution Width 13.7 % (13.2-15.2); White Blood Count 13.3 K/mm3 (4.5-11.0)
[2016-07-18 05:46] LABS: Anion Gap 25 mmol/L; Blood Urea Nitrogen 15 mg/dL (9-20); Calcium 10.2 mg/dL (8.4-10.2); Carbon Dioxide 21 mmol/L (22-30); Chloride 99.8 mmol/L (98-107); Glucose 117 mg/dL (75-100); Potassium 3.9 mmol/L (3.6-5.0); Sodium 142 mmol/L (137-145)
[2016-07-18 07:15] LABS: Urine Drugs of Abuse Note Disclamer
--- NOTE | 2016-07-18 07:45 | Emergency Department Report ---
ED Psych HPI - General Chief Complaint: Psych Stated Complaint: SUICIDAL Time Seen by Provider: 07/18/16 06:10 Source: patient, old records reviewed Mode of arrival: Ambulatory Limitations: No Limitations - History of Present Illness Initial Comments: 35 [id number] male with a past medical history hypertension, anxiety, schizophrenia, polysubstance abuse, and TIA presents to the hospital complains of psychosis. Patient's hearing voices. Patient is not currently taking any medications and does not have a good reason as to why he is noncompliant. He reported to triage that he was suicidal and the voices were telling him to hurt himself. He denies this to me. No previous plan was reported. Denies previous history of suicide attempt. No physical complaints reported. Pain equal 0. Patient was admitted here July 01 for strokelike symptoms of left-sided weakness. He received TPA. During his admission he had MRI brain 2, MRA, and CT head, and carotid Dopplers which were all unremarkable. Patient also had MRI of the cervical spine CTA head and neck. Patient was diagnosed with hyperlipidemia. UDS is positive for amphetamine at that time. Patient was evaluated by mental health and did not meet criteria for 1013 at that time and therefore patient was discharged home. - Related Data Previous Rx's Medication Instructions Recorded Last Taken Type Aspirin EC [Aspirin Enteric Coated 81 mg PO QDAY #30 tablet. 07/04/16 Unknown Rx TAB] AtorvaSTATin [Lipitor] 40 mg PO QHS #30 tablet 07/04/16 Unknown Rx Sertraline [Zoloft] 50 mg PO QDAY #30 tablet 07/04/16 Unknown Rx Allergies Allergy/AdvReac Type Severity Reaction Status Date / Time No Known Allergies Allergy Verified 06/09/15 00:02 ED Review of Systems ROS: Stated complaint: SUICIDAL Other details as noted in HPI Comment: All other systems reviewed and negative Other: Constitutional: No fevers chills Eyes: No eye pain visual changes ENT: No ear pain or throat pain Neck: Denies pain Respiratory: Denies cough wheezing shortness of breath Cardiovascular: Denies chest pain, palpitations, syncope GI: Denies abdominal pain, nausea, vomiting, diarrhea, : Denies dysuria, urinary frequency, or urgency Musculoskeletal: Denies back pain Skin: Denies rash, lesions, erythema Neurologic: Denies headache, numbness, weakness Psychiatric: As per HPI ED Past Medical Hx - Past Medical History Previous Medical History?: Yes Hx Hypertension: Yes Hx Congestive Heart Failure: No Hx Diabetes: No Hx Asthma: No Hx COPD: No Additional medical history: schizophrenia, anxiety. Hyperlipidemia - Surgical History Past Surgical History?: Yes Hx Appendectomy: Yes - Social History Smoking Status: Current Every Day Smoker Substance Use Type: None - Medications Home Medications: Home Medications Medication Instructions Recorded Confirmed Last Taken Type Aspirin EC [Aspirin Enteric Coated 81 mg PO QDAY #30 tablet. 07/04/16 Unknown Rx TAB] AtorvaSTATin [Lipitor] 40 mg PO QHS #30 tablet 07/04/16 07/18/16 Unknown Rx Sertraline [Zoloft] 50 mg PO QDAY #30 tablet 07/04/16 07/18/16 Unknown Rx ED Physical Exam - General Limitations: No Limitations - Other Other exam information: General: No limitations, patient is alert in no acute distress Head exam: Atraumatic, normocephalic Eyes exam: Normal appearance ENT: Moist mucous membrane, normal oropharynx Neck exam: Normal inspection, full range of motion, no meningismus nontender Respiratory exam: Clear to auscultation bilateral, no wheezes, rales, crackles Cardiovascular: Normal rate and rhythm, normal heart sounds Abdomen: Soft, nondistended, and nontender, with normal bowel sounds, no rebound, or guarding Extremity: Full range of motion normal inspection no deformity Back: Normal Inspection, full range of motion, no tenderness Neurologic: Alert, oriented x3, cranial nerves intact, no motor or sensory deficit Psychiatric: normal affect, normal mood Skin: Warm, dry, intact ED Course Vital Signs 07/18/16 07/18/16 07/18/16 05:02 05:45 07:57 Temperature 98.6 F 98.6 F Pulse Rate 120 H 125 H Respiratory 20 20 20 Rate Blood Pressure 186/105 Blood Pressure 146/105 [Left] O2 Sat by Pulse 100 Oximetry 07/18/16 07/18/16 08:58 12:02 Temperature Pulse Rate 125 H 95 H Respiratory 18 Rate Blood Pressure 146/102 Blood Pressure 130/60 [Left] O2 Sat by Pulse Oximetry - Reevaluation(s) Reevaluation #1: 07/18/16 09:49 Meds ordered: Patient received normal saline 1 L, Ativan 1 mg IV, and Norvasc 5 mg by mouth for hypertension and tachycardia. Abnormal vital signs [place] secondary to amphetamine and paranoia. Patient received all medication and only 1/2 L of normal saline before he pulled out his IV. Patient remains paranoid. Jamshid and Boris ordered to sedate patient so we may continue his medical treatment. Heart rate has improved to 109 Reevaluation #2: 07/18/16 12:57 Patient currently resting. Vital signs (tachycardia and hypertension) have improved. IV was replaced to continue the rest of his saline - Consultations Consultation #1: 07/18/16 07:52 Mental health consults performed ED Medical Decision Making - Lab Data Result diagrams: 07/18/16 05:02 07/18/16 05:02 Lab Results 07/18/16 07/18/16 07/18/16 Range/Units 05:02 05:02 05:02 WBC 13.3 H (4.5-11.0) K/mm3 RBC 5.70 H (3.65-5.03) M/mm3 Hgb 15.6 H (11.8-15.2) gm/dl Hct 47.1 H (35.5-45.6) % MCV 83 L (84-94) fl MCH 27 L (28-32) pg MCHC 33 (32-34) % RDW 13.7 (13.2-15.2) % Plt Count 240 (140-440) K/mm3 Lymph % (Auto) 13.7 (13.4-35.0) % [place] % (Auto) 6.6 (0.0-7.3) % Eos % (Auto) 0.0 (0.0-4.3) % Baso % (Auto) 0.4 (0.0-1.8) % Lymph # 1.8 (1.2-5.4) K/mm3 [place] # 0.9 H (0.0-0.8) K/mm3 Eos # 0.0 (0.0-0.4) K/mm3 Baso # 0.1 (0.0-0.1) K/mm3 Seg Neutrophils % 79.3 H (40.0-70.0) % Seg Neutrophils # 10.5 H (1.8-7.7) K/mm3 Sodium 142 (137-145) mmol/L Potassium 3.9 (3.6-5.0) mmol/L Chloride 99.8 (98-107) mmol/L Carbon Dioxide 21 L (22-30) mmol/L Anion Gap 25 mmol/L BUN 15 (9-20) mg/dL Creatinine 1.2 (0.8-1.5) mg/dL Estimated GFR > 60 ml/min BUN/Creatinine Ratio 12.50 % Glucose 117 H (75-100) mg/dL Calcium 10.2 (8.4-10.2) mg/dL Total Creatine Kinase (55-170) units/L Urine Color (Yellow) Urine Turbidity (Clear) Urine pH (5.0-7.0) Ur Specific [place] (1.003-1.030) Urine Protein (Negative) mg/dL Urine Glucose (UA) (Negative) mg/dL Urine Ketones (Negative) mg/dL Urine Blood (Negative) Urine Nitrite (Negative) Urine Bilirubin (Negative) Urine Urobilinogen (<2.0) mg/dL Ur Leukocyte Esterase (Negative) Urine WBC (Auto) (0.0-6.0) /HPF Urine RBC (Auto) (0.0-6.0) /HPF U Epithel Cells (Auto) (0-13.0) /HPF Urine Mucus /HPF Urine Opiates Screen Urine Methadone Screen Ur Barbiturates Screen Ur Phencyclidine Scrn Ur Amphetamines Screen U Benzodiazepines Scrn Urine Cocaine Screen U Marijuana (THC) Screen Drugs of Abuse Note Plasma/Serum Alcohol < 0.01 (0-0.07) gm% 07/18/16 07/18/16 07/18/16 Range/Units 05:02 07:14 07:14 WBC (4.5-11.0) K/mm3 RBC (3.65-5.03) M/mm3 Hgb (11.8-15.2) gm/dl Hct (35.5-45.6) % MCV (84-94) fl MCH (28-32) pg MCHC (32-34) % RDW (13.2-15.2) % Plt Count (140-440) K/mm3 Lymph % (Auto) (13.4-35.0) % [place] % (Auto) (0.0-7.3) % Eos % (Auto) (0.0-4.3) % Baso % (Auto) (0.0-1.8) % Lymph # (1.2-5.4) K/mm3 [place] # (0.0-0.8) K/mm3 Eos # (0.0-0.4) K/mm3 Baso # (0.0-0.1) K/mm3 Seg Neutrophils % (40.0-70.0) % Seg Neutrophils # (1.8-7.7) K/mm3 Sodium (137-145) mmol/L Potassium (3.6-5.0) mmol/L Chloride (98-107) mmol/L Carbon Dioxide (22-30) mmol/L Anion Gap mmol/L BUN (9-20) mg/dL Creatinine (0.8-1.5) mg/dL Estimated GFR ml/min BUN/Creatinine Ratio % Glucose (75-100) mg/dL Calcium (8.4-10.2) mg/dL Total Creatine Kinase 488 H (55-170) units/L Urine Color [place] (Yellow) Urine Turbidity Clear (Clear) Urine pH 5.0 (5.0-7.0) Ur Specific [place] 1.029 (1.003-1.030) Urine Protein 30 mg/dl (Negative) mg/dL Urine Glucose (UA) Neg (Negative) mg/dL Urine Ketones Neg (Negative) mg/dL Urine Blood Neg (Negative) Urine Nitrite Neg (Negative) Urine Bilirubin Neg (Negative) Urine Urobilinogen 2.0 (<2.0) mg/dL Ur Leukocyte Esterase Tr (Negative) Urine WBC (Auto) 12.0 H (0.0-6.0) /HPF Urine RBC (Auto) 3.0 (0.0-6.0) /HPF U Epithel Cells (Auto) 1.0 (0-13.0) /HPF Urine Mucus 3+ /HPF Urine Opiates Screen Presumptive negative Urine Methadone Screen Presumptive negative Ur Barbiturates Screen Presumptive negative Ur Phencyclidine Scrn Presumptive negative Ur Amphetamines Screen Presumptive positive U Benzodiazepines Scrn Presumptive negative Urine Cocaine Screen Presumptive negative U Marijuana (THC) Screen Presumptive positive Drugs of Abuse Note Disclamer Plasma/Serum Alcohol (0-0.07) gm% - Medical Decision Making 1013 and transfer forms signed. Patient is acutely psychotic and agitated and would benefit from inpatient treatment. Recent frequent ER visits. Patient is medically cleared for psychiatric transfer. We'll continue his recently prescribed medication as well as Norvasc 5 mg daily. - Differential Diagnosis psychosis, medication noncompliance, schizophrenia, suicidal ideation Critical Care Time: No Critical care attestation.: If time is entered above; I have spent that time in minutes in the direct care of this critically ill patient, excluding procedure time. ED Disposition Clinical Impression: Psychosis, Amphetamine abuse, Noncompliance with medication regimen, Marijuana abuse, Medical clearance for psychiatric admission Disposition: [id number]/[id number] PSY HOSP/PSY UNIT Is pt being admited?: No Does the pt Need Aspirin: No Condition: Stable Time of Disposition: 13:00 (awaiting acceptance)
[2016-07-18 07:52] LABS: Bilirubin,Urine NEG (Negative); Blood,Urine NEG (Negative); Ketones,Urine NEG (Negative); Leukocyte Esterase,Urine TR (Negative); Mucus,Urine 3+ /HPF; Nitrite,Urine NEG (Negative)
[2016-07-18] MEDS ORDERED: MILK OF MAGNESIA PO PRN (07:58)
[2016-07-18] MEDS ORDERED: TYLENOL PO PRN (07:58)
[2016-07-18] MEDS ORDERED: ALUM-MAG HYDROX-SIMETH 200-200-20MG/5ML PO PRN (07:58)
[2016-07-18] MEDS ORDERED: NACL 0.9% 1000 ML 1,000 ML IV ONE (08:02)
[2016-07-18] MEDS ORDERED: ATIVAN IV ONE (08:02)
[2016-07-18] MEDS ORDERED: NORVASC PO ONE (08:03)
[2016-07-18] MEDS ORDERED: BENADRYL IM ONE (09:48)
[2016-07-18] MEDS ORDERED: GEODON IM ONE (09:48)
[2016-07-18] MEDS: HALFPRIN EC PO SCH (10:23)
[2016-07-18] MEDS: ZOLOFT PO SCH (10:42)
--- NOTE | 2016-07-18 11:47 | Consultation ---
History of Present Illness - Reason for Consult Consult date: 07/18/16 Reason for consult: Mental Health Evaluation Requesting physician: CARLOTTA WIGGINS - Chief Complaint Chief complaint: "Why I keep doing this" - History of Present Psychiatric Illness 35 [id number] male with a past medical history hypertension, anxiety, schizophrenia, polysubstance abuse, and TIA presents to the hospital complains of psychosis. Today patient is cooperative, but paranoid about his situation. He stated that he need to stop screwing up his life with recreational drugs. His current drug of choice is methamphetamines. Patient stated that his life is all messed up. He stated that he can't keep a job and he is currently from his . He stated that he can't stop using "meth." He stated that the voices in his ears has decreased, but they are still active. He stated that he does not know if he is suicidal. Per the ER note, patient stated being suicidal during triage. He stated that he feel hopeless about everything pertaining to himself. He rate his depression 7/10, with 10 being the worse. He denies HI's/VH 's and a poor appetite. He admit to sleep disturbance. He stated that he drink beer often. This patient is known to, and he has presented with substance induced psychosis in the past. Medications and Allergies Allergies Allergy/AdvReac Type Severity Reaction Status Date / Time No Known Allergies Allergy Verified 06/09/15 00:02 Home Medications Medication Instructions Recorded Confirmed Last Taken Type Aspirin EC [Aspirin Enteric Coated 81 mg PO QDAY #30 tablet. 07/04/16 Unknown Rx TAB] AtorvaSTATin [Lipitor] 40 mg PO QHS #30 tablet 07/04/16 07/18/16 Unknown Rx Sertraline [Zoloft] 50 mg PO QDAY #30 tablet 07/04/16 07/18/16 Unknown Rx Active Meds: Active Medications Acetaminophen (Tylenol) 650 mg PO Q4HR PRN PRN Reason: Pain MILD(1-3)/Fever >100.5/CARUSO Al Hydrox/Mg Hydrox/Simethicone (Alum-Mag Hydrox-Simeth [id number]/5ml) 30 ml PO Q4HR PRN PRN Reason: Indigestion Aspirin (Halfprin Ec) 81 mg PO QDAY RNOIT Atorvastatin Calcium (Lipitor) 40 mg PO QHS [facility] Magnesium Hydroxide (Milk Of Magnesia) 30 ml PO Q12HR PRN PRN Reason: Constipation Sertraline HCl (Zoloft) 50 mg PO QDAY RONIT Last Admin: 07/18/16 10:42 Dose: 50 mg Past psychiatric history - Past Medical History Past Medical History: hypertension, other (TIA) Past Surgical History: No surgical history - past Psychiatric treatment and history Psych: Psychosis psychiatric treatment history: Inpatient psy services for psychosis (substance induced). Denies a fam psy hx. - Social History Social history: lives with family, other (Seperated from ) Mental Status Exam - Vital signs Last Vital Signs Temp 98.6 F 07/18/16 07:57 Pulse 125 H 07/18/16 08:58 Resp 20 07/18/16 07:57 BP 146/102 07/18/16 08:58 Pulse Ox 100 07/18/16 05:02 - Exam Narrative exam: ROS: (+) depression, (+) paranoid MSE: Appearance: calm, cooperative Behavior: poor eye contact Speech: regular rate and tone Mood: irritable Affect: congruent to mood Thought Process: circumstantial Thought Content: denies HI's and VH's Motor Activity: lying in bed Cognition: a/ox 3 Insight: limited Judgment: limited Results Result Diagrams: 07/18/16 05:02 07/18/16 05:02 Abnormal lab results 07/18/16 07/18/16 07/18/16 Range/Units 05:02 05:02 05:02 WBC 13.3 H (4.5-11.0) K/mm3 RBC 5.70 H (3.65-5.03) M/mm3 Hgb 15.6 H (11.8-15.2) gm/dl Hct 47.1 H (35.5-45.6) % MCV 83 L (84-94) fl MCH 27 L (28-32) pg [place] # 0.9 H (0.0-0.8) K/mm3 Seg Neutrophils % 79.3 H (40.0-70.0) % Seg Neutrophils # 10.5 H (1.8-7.7) K/mm3 Carbon Dioxide 21 L (22-30) mmol/L Glucose 117 H (75-100) mg/dL Total Creatine Kinase 488 H (55-170) units/L Urine WBC (Auto) (0.0-6.0) /HPF 07/18/16 Range/Units 07:14 WBC (4.5-11.0) K/mm3 RBC (3.65-5.03) M/mm3 Hgb (11.8-15.2) gm/dl Hct (35.5-45.6) % MCV (84-94) fl MCH (28-32) pg [place] # (0.0-0.8) K/mm3 Seg Neutrophils % (40.0-70.0) % Seg Neutrophils # (1.8-7.7) K/mm3 Carbon Dioxide (22-30) mmol/L Glucose (75-100) mg/dL Total Creatine Kinase (55-170) units/L Urine WBC (Auto) 12.0 H (0.0-6.0) /HPF All other labs normal. Assessment and Plan Assessment and plan: Impression: Substance induced psychosis, MDD severe type. Today patient is cooperative, but paranoid about his situation. He stated that he need to stop screwing up his life with recreational drugs. His current drug of choice is methamphetamines. Patient stated that his life is all messed up. He stated that he can't keep a job and he is currently from his . He stated that he can't stop using "meth." Positive for amphetamines and marijuana. DD: Schizophrenia Recommendation/Plan: Evaluate 1013 in 24 hours. Start Benadryl 25 mg PO HS for sleep. Continue Zoloft 50 mg PO Daily for depression. Discussed possible suicidality and medication induced kevin reference antidepressants. Discussed the importance to abstain from recreational drugs.
[2016-07-18] MEDS ORDERED: BENADRYL PO SCH (22:00)
[2016-07-19] MEDS ORDERED: XANAX PO ONE (02:35)
[2016-07-19] MEDS ORDERED: NORVASC PO ONE (10:00)
[2016-07-19] MEDS: HALFPRIN EC PO SCH (12:14)
[2016-07-19 12:16] VITALS: BP 120/82
[2016-07-19] MEDS: ZOLOFT PO SCH (12:16)
--- NOTE | 2016-07-19 18:41 | Progress Note ---
Subjective - Reason for Consult Consult date: 07/19/16 Reason for consult: psychiatric follow up - Chief Complaint Chief complaint: "I'm great" 35 [id number] male with a past medical history hypertension, anxiety, schizophrenia, polysubstance abuse, and TIA presents to the hospital complains of psychosis. Today patient is cooperative and is aware of the consequences of drug use. He has been using methamphetamines. No SI. No HI. No AVH. Voiced wanting to follow up with outpatient groups and mental health treatment for substance use. Mental Status Exam - Vital signs Last Vital Signs Temp 97.8 F 07/18/16 20:48 Pulse 73 07/19/16 12:14 Resp 18 07/19/16 14:51 BP 120/82 07/19/16 12:14 Pulse Ox 100 07/19/16 14:51 - Exam Orientation: time, place, person Affect: normal Mood: appropriate Thought content: other (no SI, no HI) Thought Process: Intact Perceptions: none Speech: normal rate and pattern Concentration: focused Motor activity: normal Level of consciousness: alert Memory: Intact Sleep Symptoms: None Interaction: cooperative Assessment and Plan Impression: Amphetamine use disorder Mood symptoms related to drug use DD: Schizophrenia Recommendation/Plan: Rescind 1013 and follow up with NA groups and outpatient mental health treatment Abstain from all mood altering or illicit substances.
== END 2016-07-19 20:20 | disposition home or self-care (01) ==
LOC: EEVIPCON 04:48 → ED 04:48
DX: F29 Unspecified psychosis not due to a substance or known physiological condition (principal); F19.10 Other psychoactive substance abuse, uncomplicated; Z91.14 Patient's other noncompliance with medication regimen; F12.10 Cannabis abuse, uncomplicated; I10 Essential (primary) hypertension; F20.9 Schizophrenia, unspecified; E78.00 Pure hypercholesterolemia, unspecified; F17.200 Nicotine dependence, unspecified, uncomplicated
CPT/HCPCS: 36415; 80048; 80307; 81001; 82550; 85025; 96372; 96374; 99285; A9270; G0480; J1200; J2060; J3486; J7030; 80320

== ENCOUNTER 2016-11-23 16:51 | Emergency (ER) | payer SELFPAY ==
[2016-11-23 17:15] VITALS: BP 157/99
[2016-11-23 18:46] LABS: Basophils % (Auto) 0.5 % (0.0-1.8); Eosinophils % (Auto) 1.1 % (0.0-4.3); Hematocrit 46.4 % (35.5-45.6); Hemoglobin 15.6 gm/dl (11.8-15.2); Mean Corpuscular HGB Conc 34 % (32-34); Mean Corpuscular Hemoglobin 28 pg (28-32); Mean Corpuscular Volume 84 fl (84-94); Platelet Count 190 K/mm3 (140-440); Red Cell Distribution Width 13.8 % (13.2-15.2); White Blood Count 6.5 K/mm3 (4.5-11.0)
[2016-11-23 18:50] LABS: Anion Gap 17 mmol/L; BUN/Creatinine Ratio 14; Blood Urea Nitrogen 15 mg/dL (9-20); Calcium 9.4 mg/dL (8.4-10.2); Carbon Dioxide 26 mmol/L (22-30); Chloride 104.5 mmol/L (98-107); Glucose 90 mg/dL (75-100); Potassium 4.5 mmol/L (3.6-5.0); Sodium 143 mmol/L (137-145)
== END 2016-11-23 20:40 | disposition left against medical advice (07) ==
LOC: ED 16:51
DX: R42 Dizziness and giddiness (principal); Z53.21 Procedure and treatment not carried out due to patient leaving prior to being seen by health care provider
CPT/HCPCS: 36415; 80048; 84484; 85025; 93005; 93010

== ENCOUNTER 2016-11-30 16:32 | Emergency (ER) | payer SELFPAY ==
[2016-11-30 17:28] LABS: Basophils % (Auto) 0.3 % (0.0-1.8); Eosinophils % (Auto) 0.6 % (0.0-4.3); Hematocrit 47.2 % (35.5-45.6); Hemoglobin 16.4 gm/dl (11.8-15.2); Mean Corpuscular HGB Conc 35 % (32-34); Mean Corpuscular Hemoglobin 29 pg (28-32); Mean Corpuscular Volume 84 fl (84-94); Platelet Count 198 K/mm3 (140-440); Red Blood Count 5.65 M/mm3 (3.65-5.03); Red Cell Distribution Width 14.1 % (13.2-15.2); White Blood Count 8.8 K/mm3 (4.5-11.0)
[2016-11-30 17:39] LABS: INR 0.98 (0.87-1.13)
[2016-11-30 17:40] LABS: Partial Thromboplastin Time 25.5 Sec. (24.2-36.6)
[2016-11-30 17:41] LABS: Anion Gap 23 mmol/L; BUN/Creatinine Ratio 12; Blood Urea Nitrogen 11 mg/dL (9-20); Calcium 9.8 mg/dL (8.4-10.2); Carbon Dioxide 24 mmol/L (22-30); Chloride 101.1 mmol/L (98-107); Glucose 89 mg/dL (75-100); Potassium 4.2 mmol/L (3.6-5.0); Sodium 144 mmol/L (137-145)
--- NOTE | 2016-12-01 05:26 | Emergency Department Report ---
ED Chest Pain HPI - General Chief Complaint: Chest Pain Stated Complaint: CHEST PAIN Source: patient Mode of arrival: Ambulatory Limitations: No Limitations - History of Present Illness Initial Comments: Patient is a 36-year-old left Evi male with past medical history of hypertension presents to the ER with complaints of chest pain 1 week. Pain is intermittent and worse after meals and worse with laying flat. Pain is better by sitting upright. Pain is a 5 out of 10. -: Gradual Onset: after eating Pain Location: substernal, left chest, epigastric Severity: moderate Severity scale (0 -10): 5 Quality: aching, pressure Consistency: intermittent Improves With: leaning foward Worsens With: eating, supine Other Symptoms: acid taste in mouth - Related Data Previous Rx's Medication Instructions Recorded Last Taken Type Aspirin EC [Aspirin Enteric Coated 81 mg PO QDAY #30 tablet. 07/04/16 Unknown Rx TAB] Sertraline [Zoloft] 50 mg PO QDAY #30 tablet 07/04/16 Unknown Rx AtorvaSTATin [Lipitor] 40 mg PO QHS #30 tablet 12/01/16 Unknown Rx Esomeprazole Magnesium [Nexium] 40 mg PO QDAY #30 capsule. 12/01/16 Unknown Rx Allergies Allergy/AdvReac Type Severity Reaction Status Date / Time No Known Allergies Allergy Verified 06/09/15 00:02 Heart Score - HEART Score History: Slightly suspicious EKG: Normal Age: < 45 Risk factors: No known risk factors Troponin: < normal limit HEART Score: 0 ED Review of Systems ROS: Stated complaint: CHEST PAIN Other details as noted in HPI Constitutional: denies: chills, fever Eyes: denies: eye pain, eye discharge, vision change ENT: denies: ear pain, throat pain Respiratory: denies: cough, shortness of breath, wheezing Cardiovascular: as per HPI, chest pain. denies: palpitations Endocrine: no symptoms reported Gastrointestinal: denies: abdominal pain, nausea, diarrhea Genitourinary: denies: urgency, dysuria Musculoskeletal: denies: back pain, joint swelling, arthralgia Skin: denies: rash, lesions Neurological: denies: headache, weakness, paresthesias Psychiatric: denies: anxiety, depression Hematological/Lymphatic: denies: easy bleeding, easy bruising ED Past Medical Hx - Past Medical History Previous Medical History?: Yes Hx Hypertension: Yes Hx CVA: Yes Hx Congestive Heart Failure: No Hx Diabetes: No Hx Asthma: No Hx COPD: No Additional medical history: schizophrenia, anxiety. Hyperlipidemia - Surgical History Hx Appendectomy: Yes - Social History Smoking Status: Current Every Day Smoker Substance Use Type: None - Medications Home Medications: Home Medications Medication Instructions Recorded Confirmed Last Taken Type Aspirin EC [Aspirin Enteric Coated 81 mg PO QDAY #30 tablet. 07/04/16 Unknown Rx TAB] Sertraline [Zoloft] 50 mg PO QDAY #30 tablet 07/04/16 07/18/16 Unknown Rx AtorvaSTATin [Lipitor] 40 mg PO QHS #30 tablet 12/01/16 Unknown Rx Esomeprazole Magnesium [Nexium] 40 mg PO QDAY #30 capsule. 12/01/16 Unknown Rx ED Physical Exam - General Limitations: No Limitations General appearance: alert, in no apparent distress - Head Head exam: Present: atraumatic, normocephalic - Eye Eye exam: Present: normal appearance - ENT ENT exam: Present: mucous membranes moist - Neck Neck exam: Present: normal inspection - Respiratory Respiratory exam: Present: normal lung sounds bilaterally. Absent: respiratory distress - Cardiovascular Cardiovascular Exam: Present: regular rate, normal rhythm. Absent: systolic murmur, diastolic murmur, rubs, gallop - GI/Abdominal GI/Abdominal exam: Present: soft, normal bowel sounds - Rectal Rectal exam: Present: deferred - Extremities Exam Extremities exam: Present: normal inspection - Back Exam Back exam: Present: normal inspection - Neurological Exam Neurological exam: Present: alert, oriented X3 - Psychiatric Psychiatric exam: Present: normal affect, normal mood - Skin Skin exam: Present: warm, dry, intact, normal color. Absent: rash ED Course Vital Signs 11/30/16 12/01/16 12/01/16 17:00 00:25 04:48 Temperature 98.6 F 98.0 F Pulse Rate 106 H 68 Respiratory 16 187 H 20 Rate Blood Pressure 145/99 Blood Pressure 155/89 [Left] O2 Sat by Pulse 100 99 99 Oximetry 12/01/16 04:55 Temperature Pulse Rate 75 Respiratory 18 Rate Blood Pressure Blood Pressure 168/93 [Left] O2 Sat by Pulse Oximetry ED Medical Decision Making - Lab Data Result diagrams: 11/30/16 17:04 11/30/16 16:59 - EKG Data -: EKG Interpreted by Me EKG shows normal: sinus rhythm Rate: tachycardia - EKG Data Interpretation: no acute changes, normal EKG Critical care attestation.: If time is entered above; I have spent that time in minutes in the direct care of this critically ill patient, excluding procedure time. ED Disposition Clinical Impression: GERD (gastroesophageal reflux disease), Gastritis, Chest pain Disposition: TO HOME OR SELFCARE Is pt being admited?: No Does the pt Need Aspirin: No Condition: Stable Instructions: Diet for Ulcers and Gastritis (ED), Gastroesophageal Reflux Disease (ED), Chest Pain (ED) Additional Instructions: Patient to see primary care 3-5 days. See document processor within 1 week. Patient To avoid ibuprofen and alcohol. Patient to increase water. Patient to return to ER if condition worsens. Prescriptions: AtorvaSTATin [Lipitor] 40 mg PO QHS #30 tablet Esomeprazole Magnesium [Nexium] 40 mg PO QDAY #30 capsule. Referrals: PRIMARY CARE, [Primary Care Provider] - 3-5 Days
[2016-12-01] MEDS ORDERED: BENTYL PO ONE (05:29)
[2016-12-01] MEDS ORDERED: LIDOCAINE VISCOUS 2% PO ONE (05:30)
[2016-12-01 06:23] VITALS: BP 148/88
[2016-12-01 06:55] LABS: Creatine Kinase MB 1.8 ng/mL (0.0-4.0)
[2016-12-01] MEDS ORDERED: AMPHOJEL PO SCH (07:30)
== END 2016-12-01 06:22 | disposition home or self-care (01) ==
LOC: ED 16:32
DX: K21.9 Gastro-esophageal reflux disease without esophagitis (principal); K29.70 Gastritis, unspecified, without bleeding; R07.89 Other chest pain; I10 Essential (primary) hypertension; E78.5 Hyperlipidemia, unspecified; F17.200 Nicotine dependence, unspecified, uncomplicated; Z98.890 Other specified postprocedural states; Z79.82 Long term (current) use of aspirin
CPT/HCPCS: 36415; 80048; 82550; 82553; 84484; 85025; 85610; 85730; 93005; 93010; 99284

== ENCOUNTER 2016-12-03 21:35 | Emergency (ER) | payer SELFPAY ==
[2016-12-03 21:49] VITALS: BP 151/102
[2016-12-03 22:27] LABS: Basophils % (Auto) 0.6 % (0.0-1.8); Eosinophils % (Auto) 0.2 % (0.0-4.3); Hematocrit 48.2 % (35.5-45.6); Hemoglobin 17.1 gm/dl (11.8-15.2); Mean Corpuscular HGB Conc 35 % (32-34); Mean Corpuscular Hemoglobin 29 pg (28-32); Mean Corpuscular Volume 83 fl (84-94); Platelet Count 178 K/mm3 (140-440); Red Blood Count 5.83 M/mm3 (3.65-5.03); Red Cell Distribution Width 13.7 % (13.2-15.2); White Blood Count 7.5 K/mm3 (4.5-11.0)
[2016-12-03 22:47] LABS: Anion Gap 23 mmol/L; BUN/Creatinine Ratio 9; Blood Urea Nitrogen 8 mg/dL (9-20); Carbon Dioxide 23 mmol/L (22-30); Chloride 98.7 mmol/L (98-107); Glucose 85 mg/dL (75-100); Potassium 3.7 mmol/L (3.6-5.0); Sodium 141 mmol/L (137-145)
[2016-12-03 23:40] LABS: Urine Drugs of Abuse Note Disclamer
[2016-12-04 00:01] LABS: Bilirubin,Urine NEG (Negative); Blood,Urine NEG (Negative); Ketones,Urine TR mg/dL (Negative); Leukocyte Esterase,Urine TR (Negative); Mucus,Urine FEW /HPF; Nitrite,Urine NEG (Negative); Protein,Urine <15 mg/dL mg/dL (Negative); Urobilinogen,Urine < 2.0 mg/dL (<2.0)
== END 2016-12-04 03:02 | disposition left against medical advice (07) ==
LOC: ED 21:35
DX: R07.89 Other chest pain (principal); Z53.21 Procedure and treatment not carried out due to patient leaving prior to being seen by health care provider
CPT/HCPCS: 36415; 80048; 80307; 81001; 84484; 85025; 93005; 93010; G0480; 80320

== ENCOUNTER 2019-07-05 18:54 | Emergency (ER) | payer SELFPAY ==
[2019-07-05 19:30] LABS: Basophils % (Auto) 0.4 % (0.0-1.8); Eosinophils # (Auto) 0.1 K/mm3 (0.0-0.4); Eosinophils % (Auto) 1.9 % (0.0-4.3); Hematocrit 49.9 % (35.5-45.6); Hemoglobin 17.5 gm/dl (11.8-15.2); Lymphocytes # (Auto) 1.5 K/mm3 (1.2-5.4); Lymphocytes % (Auto) 25.5 % (13.4-35.0); Mean Corpuscular HGB Conc 35 % (32-34); Mean Corpuscular Volume 85 fl (84-94); Monocytes # (Auto) 0.3 K/mm3 (0.0-0.8); Monocytes % (Auto) 5.1 % (0.0-7.3); Platelet Count 175 K/mm3 (140-440); Red Blood Count 5.87 M/mm3 (3.65-5.03); Red Cell Distribution Width 12.9 % (13.2-15.2)
[2019-07-05 19:40] LABS: Bacteria,Urine 1+ /HPF (Negative); Bilirubin,Urine NEG (Negative); Blood,Urine NEG (Negative); Color,Urine Yellow (Yellow); Mucus,Urine FEW /HPF; Protein,Urine <15 mg/dL mg/dL (Negative)
[2019-07-05 19:51] LABS: BUN/Creatinine Ratio 14; Blood Urea Nitrogen 13 mg/dL (9-20); Calcium 9.7 mg/dL (8.4-10.2); Hemolysis Index 21
[2019-07-05 20:04] LABS: Amphetamine Screen,Urine PRESUMPTIVE NEGATIVE; Benzodiazepines Screen,Urine PRESUMPTIVE NEGATIVE; Cannabinoid Screen,Urine PRESUMPTIVE NEGATIVE; Cocaine Screen,Urine PRESUMPTIVE NEGATIVE; Methadone Screen,Urine PRESUMPTIVE NEGATIVE; Opiate Screen,Urine PRESUMPTIVE NEGATIVE
--- NOTE | 2019-07-05 22:06 | Emergency Department Report ---
ED Psych HPI - General Chief Complaint: Psych Stated Complaint: DPERESSION, SUDICAL THOUGHTS Time Seen by Provider: 07/05/19 20:29 Source: patient Mode of arrival: Ambulatory - History of Present Illness Initial Comments: This is a 38-year-old male nontoxic, well nourished in appearance, no acute signs of distress presents to the ED with c/o of depression with SI. Patient stated has history of depression and was brought by his . Patient denies any homicidal ideation. Denies visual or auditory hallucination. Patient denies any fever, chills, nausea, vomiting, chest pain, shortness of breath, headache or stiff neck. Patient otherwise denies any symptoms. Denies any alcohol or drug consumption. Patient denies any allergies. MD Complaint: suicidal ideation -: days(s) Associated Psychiatric Symptoms: depression History of same: Yes Quality: constant Improves With: none Worsens With: none Associated Symptoms: denies other symptoms. denies: confusion, headache, shortness of breath, nausea, vomiting, syncope, insomnia If Self Harm: admits thoughts of - Related Data Previous Rx's Medication Instructions Recorded Last Taken Type Aspirin EC [Halfprin EC] 81 mg PO QDAY #30 tablet. 07/04/16 Unknown Rx Sertraline [Zoloft] 50 mg PO QDAY #30 tablet 07/04/16 Unknown Rx AtorvaSTATin [Lipitor] 40 mg PO QHS #30 tablet 12/01/16 Unknown Rx Esomeprazole Magnesium [Nexium] 40 mg PO QDAY #30 capsule. 12/01/16 Unknown Rx Allergies Allergy/AdvReac Type Severity Reaction Status Date / Time No Known Allergies Allergy Verified 06/09/15 00:02 ED Review of Systems ROS: Stated complaint: DPERESSION, SUDICAL THOUGHTS Other details as noted in HPI Constitutional: denies: chills, fever Eyes: denies: eye pain, eye discharge, vision change ENT: denies: ear pain, throat pain Respiratory: denies: cough, shortness of breath, wheezing Cardiovascular: denies: chest pain, palpitations Endocrine: no symptoms reported Gastrointestinal: denies: abdominal pain, nausea, diarrhea Genitourinary: denies: urgency, dysuria Musculoskeletal: denies: back pain, joint swelling, arthralgia Skin: denies: rash, lesions Neurological: denies: headache, weakness, paresthesias Psychiatric: suicidal thoughts. denies: anxiety, depression, auditory hallucinations, visual hallucinations, homicidal thoughts Hematological/Lymphatic: denies: easy bleeding, easy bruising ED Past Medical Hx - Past Medical History Previous Medical History?: Yes Hx Hypertension: Yes Hx CVA: Yes Hx Congestive Heart Failure: No Hx Diabetes: No Hx Psychiatric Treatment: Yes Hx Asthma: No Hx COPD: No Additional medical history: schizophrenia, anxiety. Hyperlipidemia - Surgical History Past Surgical History?: Yes Hx Appendectomy: Yes - Social History Smoking Status: Never Smoker Substance Use Type: None - Medications Home Medications: Home Medications Medication Instructions Recorded Confirmed Last Taken Type Aspirin EC [Halfprin EC] 81 mg PO QDAY #30 tablet. 07/04/16 07/18/16 Unknown Rx Sertraline [Zoloft] 50 mg PO QDAY #30 tablet 07/04/16 07/18/16 Unknown Rx AtorvaSTATin [Lipitor] 40 mg PO QHS #30 tablet 12/01/16 Unknown Rx Esomeprazole Magnesium [Nexium] 40 mg PO QDAY #30 capsule. 12/01/16 Unknown Rx ED Physical Exam - General Limitations: No Limitations General appearance: alert, in no apparent distress - Head Head exam: Present: atraumatic, normocephalic - Neck Neck exam: Present: normal inspection, full ROM - Extremities Exam Extremities exam: Present: normal inspection, full ROM - Back Exam Back exam: Present: normal inspection, full ROM - Neurological Exam Neurological exam: Present: alert, oriented X3, normal gait - Psychiatric Psychiatric exam: Present: depressed, suicidal ideation. Absent: agitated, anxious, flat affect, manic, homicidal ideation ED Course Vital Signs 07/05/19 18:57 Temperature 98.4 F Pulse Rate 105 H Respiratory 20 Rate Blood Pressure 167/115 O2 Sat by Pulse 98 Oximetry - Reevaluation(s) Reevaluation #1: 07/05/19 22:07 Patient is speaking in full sentences with no signs of distress noted. ED Medical Decision Making - Lab Data Result diagrams: 07/05/19 19:09 07/05/19 19:09 - Medical Decision Making This is a 38-year-old male that presents with SI. Patient is currently stable and was examined by me. Patient has been placed on 1013 and patient to be examined and evaluated by psychiatrist. Patient will remain in the ER until cleared by psychiatry. At time of admission, the patient does not seem toxic or ill in appearance. No acute signs of distress noted. Patient agrees to admission treatment plan of care. No further questions noted by the patient. Critical care attestation.: If time is entered above; I have spent that time in minutes in the direct care of this critically ill patient, excluding procedure time. ED Disposition Clinical Impression: Suicidal ideation Depression Qualifiers: Depression Type: other depression Qualified Code(s): F32.89 - Other specified depressive episodes Disposition: DC/TX-65 PSY HOSP/PSY UNIT Is pt being admited?: No Condition: Stable
[2019-07-06] MEDS ORDERED: ASPIRIN 81 MG TAB CHEW ONE (16:32)
[2019-07-06] MEDS: ASPIRIN EC 81 MG TAB PO SCH (16:32)
[2019-07-06] MEDS ORDERED: LORazepam 2 MG TAB PO PRN ×2 (22:16)
[2019-07-07] MEDS ORDERED: IBUPROFEN 800 MG TAB ONE (00:26)
[2019-07-07] MEDS ORDERED: IBUPROFEN 800 MG TAB PO ONE (00:34)
--- NOTE | 2019-07-07 02:21 | XRay Report ---
CHEST 2 VIEWS, 07/07/2019 12:53 AM INDICATION: Chest pain COMPARISON: Chest radiograph, 07/01/2016 FINDINGS: Support devices: None. Heart: The cardiac silhouette is normal in size. Lungs/pleura: The lungs are clear of focal airspace disease or significant pleural effusion. Additional findings: No significant acute abnormality. IMPRESSION: 1. No evidence of acute cardiopulmonary process. Signer Name: Sherin Wilder MD Signed: 07/07/2019 2:17 AM Workstation Name: [email or web address]
[2019-07-07] MEDS ORDERED: NON-FORMULARY EACH (Esomeprazole Magnesium [Nexium] 40 MG) PO SCH (10:00)
[2019-07-07] MEDS: PANTOPRAZOLE 40 MG TAB PO SCH (10:54)
--- NOTE | 2019-07-07 11:06 | Consultation ---
History of Present Illness - Reason for Consult Consult date: 07/07/19 Reason for consult: SI, with plan - History of Present Psychiatric Illness Reviewed the patient's medical record and discussed the patient's progress with the nursing staff. Wilber Robb is a 38y/o male patient who states he was brought to the ER by his for suicidal thoughts and depression. He is a/o x 3. He makes good eye contact. He is calm and cooperative. The patient states, "my grandma and that made things worse." He verbalizes suicidal thoughts at present, but states "I don't have a plan" He says he attempted suicide "one time in the past by overdose." He says, "I guess if I had to, I would do that again." He says he hasn't seen a psychiatrist or been on any psych meds in "2 years." He says he was diagnosed with "depression," The patient denies any illicit drug use, or nicotine use, but states "over the past three months I've been drinking a lot, beer and alcohol." He denies hallucinations of any kind. The patient states he "doesn't sleep well." He says his appetite is "okay." PAST PSYCHIATRIC HISTORY: Diagnoses: Depression Suicide attempts or Self-harm behavior: Once Prior psychiatric hospitalizations: Yes Substance Abuse history: Alcohol Previous psychiatric medications tried: None in two years Outpatient treatment: Not in two years PAST MEDICAL HISTORY: None reported Family Psychiatric History: None reported or documented SOCIAL HISTORY Current living status: With spouse Employment status: Unemployed Highest level of education: High school graduate Marital status: Legal history: Denies History of abuse: Alcohol REVIEW OF SYSTEMS Constitutional: Negative for weight loss ENT: Negative for stridor Respiratory: Negative for cough or hemoptysis All other systems reviewed and are negative MENTAL STATUS EXAMINATION General Appearance: Dressed appropriately Behavior: Calm and cooperative Mood: "Depressed" Affect: Congruent with stated mood Speech: Normal tone and pace Thought Process: Goal directed Thought Content: Suicidal Ideation: Yes Homicidal Ideation: Denies Hallucinations: Denies Delusions: None elicited Insight and Judgment: Limited Memory/Cognition: Limited Assessment Major Depressive Disorder Severe, w/o Psychotic Features MEDICATIONS: Assess CIWA Trazodone 50mg po qhs Zoloft 25mg po daily Depakote DR 125mg po BID Risks, benefits and alternatives of medications discussed with the patient, questions answered and consent obtained from patient. PSYCHOTHERAPY: Supportive psychotherapy provided MEDICAL: Per primary team DELIRIUM PRECAUTIONS: Please re-orient patient frequently, keep lights on during the day, and minimize benzodiazepines and opiates as these medications could worsen patient's confusion. FIELD SERVICER: Per Medical Team DISPOSITION: The patient meets the requirement for acute inpatient psychiatric treatment. He may transfer to an acute psychiatric facility once medically cleared. The plan was discussed with the patient, including medication benefits and possible side effects. He verbalized agreement and understanding Will continue to follow until the patient is improved enough for discharge or transferred. Thank you for the consult. Please contact with any questions and/or concerns. Medications and Allergies Allergies Allergy/AdvReac Type Severity Reaction Status Date / Time No Known Allergies Allergy Verified 06/09/15 00:02 Home Medications Medication Instructions Recorded Confirmed Last Taken Type Aspirin EC [Halfprin EC] 81 mg PO QDAY #30 tablet. 07/04/16 07/06/19 3 Days Ago Rx ~07/03/19 Sertraline [Zoloft] 50 mg PO QDAY #30 tablet 07/04/16 07/06/19 Unknown Rx AtorvaSTATin [Lipitor] 40 mg PO QHS #30 tablet 12/01/16 07/06/19 3 Days Ago Rx ~07/03/19 Esomeprazole Magnesium [Nexium] 40 mg PO QDAY #30 capsule. 12/01/16 07/06/19 Unknown Rx Active Meds: Active Medications Aspirin (Halfprin Ec) 81 mg PO QDAY [facility] Last Admin: 07/06/19 16:32 Dose: 81 mg Documented by: Atorvastatin Calcium (Lipitor) 40 mg PO QHS [facility] Last Admin: 07/06/19 22:32 Dose: 40 mg Documented by: Lorazepam (Ativan) 2 mg PO Q1HR PRN PRN Reason: CIWA-Ar 8-15 Lorazepam (Ativan) 4 mg PO Q1HR PRN PRN Reason: CIWA-Ar 16-25 Pantoprazole Sodium (Protonix) 40 mg PO DAILY [facility] Last Admin: 07/07/19 10:54 Dose: 40 mg Documented by: Mental Status Exam - Vital signs Last Vital Signs Temp 97.4 F L 07/07/19 00:00 Pulse 78 07/07/19 00:00 Resp 18 07/07/19 00:00 BP 152/100 07/07/19 00:00 Pulse Ox 97 07/07/19 00:00 Results Result Diagrams: 07/05/19 19:09 07/05/19 19:09 All other labs normal.
[2019-07-07] MEDS: ASPIRIN EC 81 MG TAB PO SCH ×2 (11:12→11:46)
[2019-07-07] MEDS ORDERED: ACETAMINOPHEN 325 MG TAB PO ONE (11:35)
[2019-07-07] MEDS: DIVALPROEX DR 125 MG TAB PO SCH ×2 (11:47→21:30)
[2019-07-07] MEDS: SERTRALINE 25 MG TAB PO SCH (12:24)
[2019-07-07] MEDS: traZODone 50 MG TAB PO SCH (21:30)
[2019-07-08] MEDS: METOPROLOL SUCCINATE XL 25 MG TAB PO SCH (11:13)
[2019-07-08] MEDS: PANTOPRAZOLE 40 MG TAB PO SCH (11:13)
[2019-07-08] MEDS: SERTRALINE 25 MG TAB PO SCH (11:13)
[2019-07-08] MEDS: DIVALPROEX DR 125 MG TAB PO SCH (11:14)
[2019-07-08] MEDS: ASPIRIN EC 81 MG TAB PO SCH (11:14)
[2019-07-08] MEDS ORDERED: DIVALPROEX DR 125 MG TAB PO SCH (11:57)
--- NOTE | 2019-07-08 11:57 | Progress Note ---
Subjective - Reason for Consult Consult date: 07/08/19 Reason for consult: suicidal - Chief Complaint Chief complaint: The patient's medical record was reviewed and the patient's progress was discussed with the nursing staff. During my interview with the patient today, he was a/o x 3. He appears to be doing somewhat better. He is calm and cooperative. He makes good eye contact. The patient states, "I feel a little better, but I'm still very much depressed." He says the "suicidal thoughts come and go." He says, "they still cross my mind but not like before." He then says, "I guess it's the meds." The patient denies hallucinations of any kind. He also denies any problems with his sleep cycle or appetite. REVIEW OF SYSTEMS Constitutional: Negative for weight loss ENT: Negative for stridor Respiratory: Negative for cough or hemoptysis All other systems reviewed and are negative MENTAL STATUS EXAMINATION General Appearance: Dressed appropriately Behavior: Calm and cooperative Mood: "Depressed" Affect: Congruent with stated mood Speech: Normal tone and pace Thought Process: Goal directed Thought Content: Suicidal Ideation: Yes Homicidal Ideation: Denies Hallucinations: Denies Delusions: None elicited Insight and Judgment: Limited Memory/Cognition: Limited Assessment Major Depressive Disorder Severe, w/o Psychotic Features MEDICATIONS: Assess DARIUSZ Crouchte DR 250mg po BID Risks, benefits and alternatives of medications discussed with the patient, questions answered and consent obtained from patient. PSYCHOTHERAPY: Supportive psychotherapy provided MEDICAL: Per primary team DELIRIUM PRECAUTIONS: Please re-orient patient frequently, keep lights on during the day, and minimize benzodiazepines and opiates as these medications could worsen patient's confusion. LONG TERM CARE SOCIAL WORKER: Per Medical Team DISPOSITION: The patient meets the requirement for acute inpatient psychiatric treatment. He may transfer to an acute psychiatric facility once medically cleared. The plan was discussed with the patient, including medication benefits and possible side effects. He verbalized agreement and understanding Will continue to follow until the patient is improved enough for discharge or transferred. Thank you for the consult. Please contact with any questions and/or concerns. Mental Status Exam - Vital signs Last Vital Signs Temp 97.9 F 07/08/19 08:58 Pulse 76 07/08/19 08:58 Resp 18 07/08/19 08:58 BP 154/97 07/08/19 11:13 Pulse Ox 100 07/08/19 08:58
[2019-07-08] MEDS: DIVALPROEX DR 250 MG TAB PO SCH (22:13)
[2019-07-08] MEDS: traZODone 50 MG TAB PO SCH (22:40)
[2019-07-08] MEDS: traZODone 100 MG TAB PO SCH (22:58)
[2019-07-09] MEDS: DIVALPROEX DR 250 MG TAB PO SCH ×2 (10:46→22:00)
[2019-07-09] MEDS: PANTOPRAZOLE 40 MG TAB PO SCH (10:46)
[2019-07-09] MEDS: SERTRALINE 25 MG TAB PO SCH (10:46)
[2019-07-09] MEDS: METOPROLOL SUCCINATE XL 25 MG TAB PO SCH (10:47)
[2019-07-09] MEDS: ASPIRIN EC 81 MG TAB PO SCH (10:47)
--- NOTE | 2019-07-09 11:04 | Progress Note ---
Subjective - Reason for Consult Consult date: 07/09/19 Reason for consult: MHE Requesting physician: MARILYN VERGARA - Chief Complaint Chief complaint: Nurse Note: 1907 report received from Leslie ROCKWELL, received patient in ED room 12A, awake, watching TV, no distress noted, no complaints this time, patient is on his green scrubs and non skid socks. Patient denies SI/HI/hearing voices this time, he has been accepted to [facility], pending transport time. Checked his vital signs, will continue to monitor him and safety precautions. Nancy Progress Provider: Patient interview by bedside this a.m., scribes mood today as all right, denies suicidal homicidal ideation still sleeping well since his been here and started on medications. Patient reports appetite is still on and off but denies any auditory visual hallucination. Patient identifies family and kids as source of happiness but states he is not able to have happiness by himself. Patient aware that is got strong support from mom brother's and sisters. Patient is expresses wishes to feel better and reports feeling better ready since he is been here. REVIEW OF SYSTEMS Constitutional: Negative for weight loss ENT: Negative for stridor Respiratory: Negative for cough or hemoptysis All other systems reviewed and are negative MENTAL STATUS EXAMINATION General Appearance: Dressed appropriately Behavior: Calm and cooperative Mood: Much better Affect: Congruent with stated mood Speech: Normal tone and pace Thought Process: Goal directed Thought Content: Suicidal Ideation: Denies Homicidal Ideation: Denies Hallucinations: Denies Delusions: None elicited Insight and Judgment: Limited Memory/Cognition: Normal Assessment Major Depressive Disorder Severe, w/o Psychotic Features MEDICATIONS: Assess CIWA Continue current meds Risks, benefits and alternatives of medications discussed with the patient, questions answered and consent obtained from patient. PSYCHOTHERAPY: Supportive psychotherapy provided MEDICAL: Per primary team DELIRIUM PRECAUTIONS: Please re-orient patient frequently, keep lights on during the day, and minimize benzodiazepines and opiates as these medications could worsen patient's confusion. DIRECTOR OF CLAIMS: Per Medical Team DISPOSITION: The patient meets the requirement for acute inpatient psychiatric treatment. He may transfer to an acute psychiatric facility once medically cleared. The plan was discussed with the patient, including medication benefits and possible side effects. He verbalized agreement and understanding Will continue to follow until the patient is improved enough for discharge or transferred. Thank you for the consult. Please contact with any questions and/or concerns. Mental Status Exam - Vital signs Last Vital Signs Temp 98.2 F 07/09/19 09:49 Pulse 84 07/09/19 09:49 Resp 16 07/09/19 09:49 BP 125/83 07/09/19 09:49 Pulse Ox 100 07/09/19 09:49
[2019-07-09 19:34] VITALS: BP 124/81
[2019-07-09] MEDS: traZODone 100 MG TAB PO SCH (22:00)
== END 2019-07-10 00:42 ==
LOC: ED 18:54
DX: F32.9 Major depressive disorder, single episode, unspecified (principal); R45.851 Suicidal ideations; E78.5 Hyperlipidemia, unspecified; F41.9 Anxiety disorder, unspecified; I10 Essential (primary) hypertension; Z86.73 Personal history of transient ischemic attack (TIA), and cerebral infarction without residual deficits; Z79.899 Other long term (current) drug therapy; Z90.49 Acquired absence of other specified parts of digestive tract
CPT/HCPCS: 36415; 71046; 80048; 80307; 81001; 84484; 85025; 87086; 99285; A9270; 80320; G0480

== ENCOUNTER 2019-07-17 00:15 | Emergency (ER) | payer SELFPAY ==
--- NOTE | 2019-07-17 01:23 | Emergency Department Report ---
HPI - General Chief Complaint: Psych Time Seen by Provider: 07/17/19 01:01 - HPI HPI: 38-year-old -Malagasy male presents to the emergency department with a complaint of depression and suicidal ideations. The patient had the plan to overdose on aspirin but instead spoke to his , told him how he was feeling, and she brought him in for evaluation. The patient did have an overdose attempt in 2005. Patient was apparently discharged from [facility] last week. He says he just restarted Zoloft about 5 days ago but was off it for about 2 years. He has a past medical history of previous CVA without residual deficits, hypertension, hyperlipidemia, and has a psychiatric history of schizophrenia and anxiety. He denies any hallucinations or any homicidal ideations. ED Past Medical Hx - Past Medical History Previous Medical History?: Yes Hx Hypertension: Yes Hx CVA: Yes Hx Congestive Heart Failure: No Hx Diabetes: No Hx Psychiatric Treatment: Yes Hx Asthma: No Hx COPD: No Additional medical history: schizophrenia, anxiety. Hyperlipidemia - Surgical History Past Surgical History?: Yes Hx Appendectomy: Yes - Social History Smoking Status: Never Smoker Substance Use Type: None - Medications Home Medications: Home Medications Medication Instructions Recorded Confirmed Last Taken Type Aspirin EC [Halfprin EC] 81 mg PO QDAY #30 tablet. 07/04/16 07/06/19 3 Days Ago Rx ~07/03/19 Sertraline [Zoloft] 50 mg PO QDAY #30 tablet 07/04/16 07/06/19 Unknown Rx AtorvaSTATin [Lipitor] 40 mg PO QHS #30 tablet 12/01/16 07/06/19 3 Days Ago Rx ~07/03/19 Esomeprazole Magnesium [Nexium] 40 mg PO QDAY #30 capsule. 12/01/16 07/06/19 Unknown Rx Metoprolol [Lopressor] 25 mg PO DAILY 07/08/19 07/08/19 Unknown History ED Review of Systems ROS: Stated complaint: MH Other details as noted in HPI Comment: All other systems reviewed and negative Constitutional: denies: chills, fever Eyes: denies: eye pain, vision change ENT: denies: ear pain, throat pain Respiratory: denies: cough, shortness of breath Cardiovascular: denies: chest pain, palpitations Gastrointestinal: denies: abdominal pain, vomiting Musculoskeletal: denies: back pain, arthralgia Neurological: denies: headache, weakness Psychiatric: depression, suicidal thoughts. denies: auditory hallucinations, visual hallucinations, homicidal thoughts Physical Exam - Physical Exam Vital Signs: Vital Signs 07/17/19 07/17/19 00:24 00:50 Temperature 98.3 F Pulse Rate 103 H Respiratory 18 18 Rate Blood Pressure 135/75 O2 Sat by Pulse 95 Oximetry Physical Exam: GENERAL: The patient is well-developed well-nourished. HENT: Normocephalic. Atraumatic. Patient has moist mucous membranes. EYES: Extraocular motions are intact. NECK: Supple. Trachea is midline. CHEST/LUNGS: Clear to auscultation. There is no respiratory distress noted. HEART/CARDIOVASCULAR: Regular. There is no tachycardia. ABDOMEN: Abdomen is soft, nontender. Patient has normal bowel sounds. SKIN: Skin is warm and dry. NEURO: The patient is awake, alert, and oriented. The patient is cooperative. The patient has no focal neurologic deficits. Normal speech. MUSCULOSKELETAL: There is no tenderness or deformity. There is no evidence of acute injury. ED Course Vital Signs 07/17/19 07/17/19 00:24 00:50 Temperature 98.3 F Pulse Rate 103 H Respiratory 18 18 Rate Blood Pressure 135/75 O2 Sat by Pulse 95 Oximetry ED Medical Decision Making - Lab Data Result diagrams: 07/17/19 00:53 07/17/19 00:53 - Medical Decision Making This patient presents to the emergency department with depression and suicidal ideations with a plan to overdose on aspirin. However the patient's stopped him and brought him in for evaluation. For the depression and suicidal ideations the patient has been made a 1013. Patient's labs have been mostly unremarkable except for a blood alcohol level of 0.16. His vital signs have been stable throughout his ED course thus far. The patient is medically cleared for psychiatric placement. Critical Care Time: No Critical care attestation.: If time is entered above; I have spent that time in minutes in the direct care of this critically ill patient, excluding procedure time. ED Disposition Clinical Impression: Suicidal ideation Depression Qualifiers: Depression Type: unspecified Qualified Code(s): F32.9 - Major depressive disorder, single episode, unspecified Disposition: DC/TX-65 PSY HOSP/PSY UNIT Is pt being admited?: No Condition: Stable Time of Disposition: 03:47
[2019-07-17 01:25] LABS: Basophils # (Auto) 0.1 K/mm3 (0.0-0.1); Basophils % (Auto) 0.6 % (0.0-1.8); Eosinophils # (Auto) 0.1 K/mm3 (0.0-0.4); Eosinophils % (Auto) 1.7 % (0.0-4.3); Lymphocytes # (Auto) 4.5 K/mm3 (1.2-5.4); Lymphocytes % (Auto) 53.1 % (13.4-35.0); Mean Corpuscular HGB Conc 36 % (32-34); Mean Corpuscular Volume 85 fl (84-94); Monocytes # (Auto) 0.4 K/mm3 (0.0-0.8); Monocytes % (Auto) 4.3 % (0.0-7.3); Platelet Count 230 K/mm3 (140-440); Red Blood Count 5.26 M/mm3 (3.65-5.03); Red Cell Distribution Width 13.1 % (13.2-15.2)
[2019-07-17 01:30] LABS: Hematocrit 44.9 % (35.5-45.6); Hemoglobin 16.1 gm/dl (11.8-15.2)
[2019-07-17 01:34] LABS: Bacteria,Urine 1+ /HPF (Negative); Bilirubin,Urine NEG (Negative); Blood,Urine NEG (Negative); Color,Urine Yellow (Yellow); Mucus,Urine FEW /HPF; Protein,Urine <15 mg/dL mg/dL (Negative)
[2019-07-17 01:37] LABS: BUN/Creatinine Ratio 13; Blood Urea Nitrogen 15 mg/dL (9-20); Calcium 9.3 mg/dL (8.4-10.2); Hemolysis Index 27
[2019-07-17 01:39] LABS: Amphetamine Screen,Urine PRESUMPTIVE NEGATIVE; Benzodiazepines Screen,Urine PRESUMPTIVE NEGATIVE; Cannabinoid Screen,Urine PRESUMPTIVE NEGATIVE; Cocaine Screen,Urine PRESUMPTIVE NEGATIVE; Methadone Screen,Urine PRESUMPTIVE NEGATIVE; Opiate Screen,Urine PRESUMPTIVE NEGATIVE
[2019-07-18 08:26] VITALS: BP 138/96
[2019-07-18] MEDS ORDERED: SERTRALINE 25 MG TAB PO SCH (12:00)
== END 2019-07-18 13:20 ==
LOC: ED 00:15 → EEVIPCON 00:15 → ED 07-18 13:20
DX: R45.851 Suicidal ideations (principal); I10 Essential (primary) hypertension; I25.2 Old myocardial infarction; F20.9 Schizophrenia, unspecified; F41.9 Anxiety disorder, unspecified; Z79.899 Other long term (current) drug therapy; Z90.49 Acquired absence of other specified parts of digestive tract
CPT/HCPCS: 36415; 80048; 80307; 80320; 81001; 85025; 87086; G0480

== ENCOUNTER 2019-07-19 21:56 | Emergency (ER) | payer SELFPAY ==
[2019-07-19 22:34] VITALS: BP 150/104
== END 2019-07-20 01:54 | disposition home or self-care (01) ==
LOC: ED 21:56
DX: S02.2XXA Fracture of nasal bones, initial encounter for closed fracture (principal); S00.83XA Contusion of other part of head, initial encounter; I10 Essential (primary) hypertension; I25.2 Old myocardial infarction; F20.9 Schizophrenia, unspecified; F17.200 Nicotine dependence, unspecified, uncomplicated; Z90.49 Acquired absence of other specified parts of digestive tract; X58.XXXA Exposure to other specified factors, initial encounter; Y93.89 Activity, other specified; Y92.89 Other specified places as the place of occurrence of the external cause; Y99.8 Other external cause status
CPT/HCPCS: 70486

== ENCOUNTER 2019-08-19 21:53 | Emergency (ER) | payer SELFPAY ==
[2019-08-19 23:27] LABS: Basophils % (Auto) 0.4 % (0.0-1.8); Eosinophils # (Auto) 0.1 K/mm3 (0.0-0.4); Eosinophils % (Auto) 1.4 % (0.0-4.3); Hematocrit 48.9 % (35.5-45.6); Hemoglobin 16.9 gm/dl (11.8-15.2); Lymphocytes # (Auto) 2.7 K/mm3 (1.2-5.4); Lymphocytes % (Auto) 33.2 % (13.4-35.0); Mean Corpuscular HGB Conc 35 % (32-34); Mean Corpuscular Volume 88 fl (84-94); Monocytes # (Auto) 0.4 K/mm3 (0.0-0.8); Monocytes % (Auto) 5.1 % (0.0-7.3); Platelet Count 210 K/mm3 (140-440); Red Blood Count 5.54 M/mm3 (3.65-5.03); Red Cell Distribution Width 13.3 % (13.2-15.2)
[2019-08-19 23:43] LABS: BUN/Creatinine Ratio 10; Blood Urea Nitrogen 13 mg/dL (9-20); Calcium 9.5 mg/dL (8.4-10.2); Hemolysis Index 15
--- NOTE | 2019-08-19 23:44 | Emergency Department Report ---
HPI - General Chief Complaint: Psych Time Seen by Provider: 08/19/19 23:35 - HPI HPI: This is a 38-year-old -[place] Citizen male presents to the emergency department with a complaint of suicidal ideations and possible attempt by overdose. Patient says that he took 6 pills this evening with the intent of harming himself. He is unable to tell me what type of medication these "pills" were but says that they were pills that he had at home and denies that they were illicit drugs. The only physical complaint he has at this time is feeling jittery. He has a past medical history of hypertension and a psychiatric history of bipolar disorder and schizophrenia. The patient says that he is compliant with his medications that include Zoloft and Remeron. He follows with the [facility] for his psychiatric care. ED Past Medical Hx - Past Medical History Previous Medical History?: Yes Hx Hypertension: Yes Hx CVA: Yes Hx Congestive Heart Failure: No Hx Diabetes: No Hx Psychiatric Treatment: Yes Hx Asthma: No Hx COPD: No Additional medical history: schizophrenia, anxiety. Hyperlipidemia - Surgical History Past Surgical History?: Yes Hx Appendectomy: Yes - Social History Smoking Status: Current Every Day Smoker Substance Use Type: Alcohol - Medications Home Medications: Home Medications Medication Instructions Recorded Confirmed Last Taken Type Aspirin EC [Halfprin EC] 81 mg PO QDAY #30 tablet. 07/04/16 07/18/19 3 Days Ago Rx ~07/03/19 Sertraline [Zoloft] 50 mg PO QDAY #30 tablet 07/04/16 07/18/19 Unknown Rx AtorvaSTATin [Lipitor] 40 mg PO QHS #30 tablet 12/01/16 07/18/19 3 Days Ago Rx ~07/03/19 Esomeprazole Magnesium [Nexium] 40 mg PO QDAY #30 capsule. 12/01/16 07/18/19 Unknown Rx Metoprolol [Lopressor] 25 mg PO DAILY 07/08/19 07/18/19 Unknown History Amoxicillin/Potassium Clav 1 each PO Q12H #20 tablet 07/20/19 Unknown Rx [Augmentin 875-125 Tablet] Cyclobenzaprine [Flexeril] 10 mg PO Q8H PRN #15 tablet 07/20/19 Unknown Rx Ibuprofen [Motrin] 800 mg PO Q8HR PRN #24 tablet 07/20/19 Unknown Rx Nitrofurantoin [place]/M-Cryst 100 mg PO Q12HR #14 capsule 08/20/19 Unknown Rx [Macrobid CAP] ED Review of Systems ROS: Stated complaint: SUICIDAL/MH EVAL Other details as noted in HPI Comment: All other systems reviewed and negative Constitutional: denies: chills, fever Eyes: denies: eye pain, vision change Respiratory: denies: shortness of breath Cardiovascular: denies: chest pain Gastrointestinal: denies: abdominal pain, vomiting Musculoskeletal: denies: back pain, arthralgia Neurological: denies: headache, weakness Physical Exam - Physical Exam Vital Signs: Vital Signs 08/19/19 22:00 Temperature 98.6 F Pulse Rate 126 H Respiratory 18 Rate Blood Pressure 163/90 O2 Sat by Pulse 97 Oximetry Physical Exam: GENERAL: The patient is well-developed well-nourished. HENT: Normocephalic. Atraumatic. Patient has moist mucous membranes. EYES: Extraocular motions are intact. NECK: Supple. Trachea is midline. CHEST/LUNGS: Clear to auscultation. There is no respiratory distress noted. HEART/CARDIOVASCULAR: Regular. There is mild tachycardia. There is no murmur. ABDOMEN: Abdomen is soft, nontender. Patient has normal bowel sounds. SKIN: Skin is warm and dry. NEURO: The patient is awake, alert, and oriented. The patient is cooperative. Normal speech. MUSCULOSKELETAL: There is no tenderness or deformity. There is no evidence of acute injury. ED Course Vital Signs 08/19/19 22:00 Temperature 98.6 F Pulse Rate 126 H Respiratory 18 Rate Blood Pressure 163/90 O2 Sat by Pulse 97 Oximetry ED Medical Decision Making - Lab Data Result diagrams: 08/19/19 22:14 08/19/19 22:14 - EKG Data -: EKG Interpreted by Co EKG shows normal: sinus rhythm, axis, intervals (Borderline prolonged QTC), QRS complexes, ST-T waves Rate: normal - EKG Data When compared to previous EKG there are: previous EKG unavailable Interpretation: normal EKG (With borderline prolonged QTc) - Medical Decision Making This patient presents to the emergency department with a complaint of suicidal ideations and a questionable overdose/suicide attempt. The patient said he took 6 pills but could not identify them. He presents with some tachycardia but otherwise vitals are stable including being afebrile. Patient's labs show a blood alcohol level of 0.06, a urinary tract infection, and a urine drug screen positive for amphetamines. The patient will be started on Macrobid for the UTI. At the time of my examination the patient is calm, oriented, and appropriate, other than a flat affect. He has been made a 1013 secondary to the suicidal ideations. He is medically cleared for psychiatric placement. Critical Care Time: No Critical care attestation.: If time is entered above; I have spent that time in minutes in the direct care of this critically ill patient, excluding procedure time. ED Disposition Clinical Impression: Suicidal ideation, Amphetamine abuse UTI (urinary tract infection) Qualifiers: Urinary tract infection type: acute cystitis Hematuria presence: without hematuria Qualified Code(s): N30.00 - Acute cystitis without hematuria Disposition: DC/TX-65 PSY HOSP/PSY UNIT Is pt being admited?: No Condition: Stable Instructions: Urinary Tract Infection in Men (ED), Methamphetamine Abuse (ED) Prescriptions: Nitrofurantoin [place]/M-Cryst [Macrobid CAP] 100 mg PO Q12HR #14 capsule Time of Disposition: 05:24
[2019-08-20] MEDS ORDERED: ALPRAZolam 0.5 MG TAB PO ONE (01:36)
[2019-08-20 02:38] LABS: Amphetamine Screen,Urine PRESUMPTIVE POSITIVE; Benzodiazepines Screen,Urine PRESUMPTIVE NEGATIVE; Cannabinoid Screen,Urine PRESUMPTIVE NEGATIVE; Cocaine Screen,Urine PRESUMPTIVE NEGATIVE; Methadone Screen,Urine PRESUMPTIVE NEGATIVE; Opiate Screen,Urine PRESUMPTIVE NEGATIVE
[2019-08-20 03:23] LABS: Bilirubin,Urine NEG (Negative); Blood,Urine NEG (Negative); Color,Urine Yellow (Yellow); Mucus,Urine 1+ /HPF; Protein,Urine <15 mg/dL mg/dL (Negative)
[2019-08-20] MEDS ORDERED: NITROFURANTOIN MONOHYD/M-CRYST 100 MG CAP PO ONE (04:46)
[2019-08-20] MEDS: IBUPROFEN 800 MG TAB PO PRN (10:53)
[2019-08-20] MEDS: CYCLOBENZAPRINE 10 MG TAB PO PRN (10:53)
[2019-08-20] MEDS: SERTRALINE 50 MG TAB PO SCH (10:53)
[2019-08-20] MEDS: PANTOPRAZOLE 40 MG TAB PO SCH (10:54)
[2019-08-20] MEDS: ASPIRIN EC 81 MG TAB PO SCH (11:15)
[2019-08-20] MEDS: METOPROLOL SUCCINATE XL 25 MG TAB PO SCH (11:54)
[2019-08-21] MEDS: PANTOPRAZOLE 40 MG TAB PO SCH (10:51)
[2019-08-21] MEDS: SERTRALINE 50 MG TAB PO SCH (10:51)
[2019-08-21] MEDS: CYCLOBENZAPRINE 10 MG TAB PO PRN (10:52)
[2019-08-21] MEDS: IBUPROFEN 800 MG TAB PO PRN (10:52)
[2019-08-21] MEDS: ASPIRIN EC 81 MG TAB PO SCH (10:53)
--- NOTE | 2019-08-21 11:08 | Consultation ---
History of Present Illness - Reason for Consult Consult date: 08/21/19 Reason for consult: SI, drug use - History of Present Psychiatric Illness Wilber Robb is a patient who is known to me from previous visits. He was admitted for suicidal ideation with attempt by overdose. The patient is a/o x 3. He is calm and cooperative. He is pleasant. He c/o being depressed but states, "I don't feel suicidal right now." The patient says he used "meth and alcohol, and started feeling like this." He denies hallucinations of any kind. He says he has a diagnoses of "depression, and schizophrenia." The patient says he takes "zoloft." He says he hasn't been taking it regularly. PAST PSYCHIATRIC HISTORY Diagnoses: Depression, and Schizophrenia Suicide attempts or Self-harm behavior: Twice Prior psychiatric hospitalizations: "I really don't remember" Substance Abuse history: Alcohol, meth Previous psychiatric medications tried: Zoloft Outpatient treatment: [facility] SOCIAL HISTORY Marital Status: Living Arrangements: Family Employment Status: Employed Access to guns/weapons: Denies Education: 12th grade History of abuse: Drug abuse in the past, alcohol Legal History: Denies ROS Constitutional: Negative for weight loss EMT: Negative for stridor Respiratory: Negative for cough or hemoptysis All other systems reviewed and are negative MENTAL STATUS EXAMINATION General Appearance: Dressed appropriately. Behavior: Calm and cooperative. Good eye contact. Mood: "depressed" Affect: Smiling inappropriately, Incongruent with stated mood Speech: Normal tone and pace Thought Process: Goal oriented Suicidal Ideation: Yes Homicidal Ideation: Denies Hallucinations: Denies Delusions: None elicited Insight and Judgment: Limited Memory/Cognition: Limited Assessment and Plan Drug Induced Mood Disorder Major Depressive Disorder RECOMMENDATIONS Assess CIWA MEDICATIONS Start Abilify 5mg po daily Risks, benefits and alternatives of medications discussed with the patient, questions answered and consent obtained from patient. PSYCHOTHERAPY: Supportive psychotherapy provided MEDICAL: Per primary team DELIRIUM PRECAUTIONS: Please re-orient patient frequently, keep lights on during the day, and minimize benzodiazepines and opiates as these medications could worsen patient's confusion. 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 The patient may transfer to an acute facility once medically clear. Will continue to follow. Thank you for this consult. Medications and Allergies Allergies Allergy/AdvReac Type Severity Reaction Status Date / Time No Known Allergies Allergy Verified 06/09/15 00:02 Home Medications Medication Instructions Recorded Confirmed Last Taken Type Aspirin EC [Halfprin EC] 81 mg PO QDAY #30 tablet. 07/04/16 08/20/19 2 Days Ago Rx ~08/18/19 81 Sertraline [Zoloft] 50 mg PO QDAY #30 tablet 07/04/16 08/20/19 1 Day Ago Rx ~08/19/19 50 AtorvaSTATin [Lipitor] 40 mg PO QHS #30 tablet 12/01/16 08/20/19 2 Days Ago Rx ~08/18/19 40 Esomeprazole Magnesium [Nexium] 40 mg PO QDAY #30 capsule. 12/01/16 08/20/19 2 Days Ago Rx ~08/18/19 40 Metoprolol [Lopressor] 25 mg PO DAILY 07/08/19 08/20/19 2 Days Ago History ~08/18/19 25 Amoxicillin/Potassium Clav 1 each PO Q12H #20 tablet 07/20/19 08/20/19 2 Days Ago Rx [Augmentin 875-125 Tablet] ~08/18/19 25 Cyclobenzaprine [Flexeril] 10 mg PO Q8H PRN #15 tablet 07/20/19 08/20/19 2 Days Ago Rx ~08/18/19 Ibuprofen [Motrin] 800 mg PO Q8HR PRN #24 tablet 07/20/19 08/20/19 2 Days Ago Rx ~08/18/19 800 Nitrofurantoin [place]/M-Cryst 100 mg PO Q12HR #14 capsule 08/20/19 Unknown Rx [Macrobid CAP] Active Meds: Active Medications Aspirin (Halfprin Ec) 81 mg PO QDAY [facility] Last Admin: 08/21/19 10:53 Dose: 81 mg Documented by: Atorvastatin Calcium (Lipitor) 40 mg PO QHS [facility] Last Admin: 08/20/19 23:24 Dose: 40 mg Documented by: Cyclobenzaprine HCl (Flexeril) 10 mg PO Q8H PRN PRN Reason: Muscle Spasm Last Admin: 08/21/19 10:52 Dose: 10 mg Documented by: Ibuprofen (Ibuprofen) 800 mg PO Q8HR PRN PRN Reason: Pain , Severe (7-10) Last Admin: 08/21/19 10:52 Dose: 800 mg Documented by: Metoprolol Succinate (Metoprolol Xl) 25 mg PO DAILY [facility] Last Admin: 08/20/19 11:54 Dose: 25 mg Documented by: Pantoprazole Sodium (Protonix) 40 mg PO QDAY [facility] Last Admin: 08/21/19 10:51 Dose: 40 mg Documented by: Sertraline HCl (Zoloft) 50 mg PO QDAY [facility] Last Admin: 08/21/19 10:51 Dose: 50 mg Documented by: Mental Status Exam - Vital signs Last Vital Signs Temp 97.5 F L 08/21/19 08:15 Pulse 76 08/21/19 08:15 Resp 18 08/21/19 10:43 BP 122/81 08/21/19 08:15 Pulse Ox 100 08/21/19 10:43 Results Result Diagrams: 08/19/19 22:14 08/19/19 22:14 All other labs normal.
[2019-08-21] MEDS: METOPROLOL SUCCINATE XL 25 MG TAB PO SCH (11:57)
[2019-08-21] MEDS: ARIPiprazole 5 MG TAB PO SCH (15:03)
[2019-08-22 07:39] VITALS: BP 109/71
[2019-08-22] MEDS: PANTOPRAZOLE 40 MG TAB PO SCH (12:40)
[2019-08-22] MEDS: SERTRALINE 50 MG TAB PO SCH (12:40)
[2019-08-22] MEDS: ARIPiprazole 5 MG TAB PO SCH (12:41)
[2019-08-22] MEDS: METOPROLOL SUCCINATE XL 25 MG TAB PO SCH (12:41)
[2019-08-22] MEDS: ASPIRIN EC 81 MG TAB PO SCH (12:42)
--- NOTE | 2019-08-22 15:36 | Progress Note ---
Subjective - Reason for Consult Consult date: 08/22/19 Reason for consult: MHE Requesting physician: YAZMIN KEENE - Chief Complaint Chief complaint: Psych Progress Patient seen this AM, reports felling much better and more clear, says had used a street hallucinogenic drug that was making him say things he was saying and behaving the way he did. Denies SI or HI thoughts, denies any hallucination. Reports using street drugs for a while now PAST PSYCHIATRIC HISTORY Diagnoses: Depression, and Schizophrenia Suicide attempts or Self-harm behavior: Twice Prior psychiatric hospitalizations: "I really don't remember" Substance Abuse history: Alcohol, meth Previous psychiatric medications tried: Zoloft Outpatient treatment: [facility] Constitutional: Negative for weight loss EMT: Negative for stridor Respiratory: Negative for cough or hemoptysis All other systems reviewed and are negative MENTAL STATUS EXAMINATION General Appearance: laying bed, cooperative, appropriate for age Behavior: Calm and cooperative. Good eye contact. Mood: feel better Affect: congruent with mood Speech: Normal tone and pace Thought Process: Goal oriented Suicidal Ideation: denies Homicidal Ideation: Denies Hallucinations: Denies Delusions: None elicited Insight and Judgment: Good insight Memory/Cognition: Normal Assessment and Plan Drug Induced Mood Disorder Major Depressive Disorder RECOMMENDATIONS Assess CIWA MEDICATIONS Start Abilify 5mg po daily Risks, benefits and alternatives of medications discussed with the patient, questions answered and consent obtained from patient. PSYCHOTHERAPY: Supportive psychotherapy provided MEDICAL: Per primary team DELIRIUM PRECAUTIONS: Please re-orient patient frequently, keep lights on during the day, and minimize benzodiazepines and opiates as these medications could worsen patient's confusion. 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 Safety discharge plan Will sign off Mental Status Exam - Vital signs Last Vital Signs Temp 97.4 F L 08/22/19 07:38 Pulse 66 08/22/19 12:41 Resp 18 08/22/19 07:38 BP 109/71 08/22/19 12:41 Pulse Ox 100 08/22/19 07:38
== END 2019-08-22 16:40 ==
LOC: EEVIPCON 21:53 → ED 21:53
DX: R45.851 Suicidal ideations (principal); N39.0 Urinary tract infection, site not specified; I10 Essential (primary) hypertension; F20.89 Other schizophrenia; F41.9 Anxiety disorder, unspecified; F17.200 Nicotine dependence, unspecified, uncomplicated; Z90.49 Acquired absence of other specified parts of digestive tract; Z79.899 Other long term (current) drug therapy
CPT/HCPCS: 36415; 80048; 80307; 81001; 85025; 87086; 93005; 99284; A9270; 80320; G0480

== ENCOUNTER 2020-03-03 05:27 | Emergency (ER) | payer SELFPAY ==
[2020-03-03] MEDS ORDERED: LORazepam 2 MG/ML VIAL ONE (05:30)
[2020-03-03] MEDS ORDERED: WATER FOR INJ Sterile (PF) 10 ML ONE (05:31)
[2020-03-03] MEDS ORDERED: ZIPRASIDONE MESYLATE 20 MG VIAL IM ONE ×2 (05:31→05:46)
[2020-03-03] MEDS ORDERED: diphenhydrAMINE 50 MG/ML VIAL ONE (05:32)
[2020-03-03] MEDS ORDERED: diphenhydrAMINE 50 MG/ML VIAL IM ONE (05:46)
[2020-03-03] MEDS ORDERED: LORazepam 2 MG/ML VIAL IM ONE (05:46)
[2020-03-03] MEDS ORDERED: SODIUM CHLORIDE 0.9% 1000 ML 1,000 ML IV ONE (06:34)
--- NOTE | 2020-03-03 06:57 | Emergency Department Report ---
ED General Adult HPI - General Chief complaint: Psych Stated complaint: MH/CHEST PAIN Time Seen by Provider: 03/03/20 06:15 Source: patient Mode of arrival: Ambulatory Limitations: No Limitations - History of Present Illness Initial comments: This is a 39-year-old male who received chemical sedation prior to my arrival. I am told by the nurse that while Geodon and Ativan were ordered, they determined that the Geodon suffice. At the time of my encounter the patient is sleeping and snoring. He is protecting his airway. He is in no apparent distress. I am told that the patient was abusing methamphetamine. At the time of his arrival he displayed agitation consistent with an excited delirium and overt paranoid thoughts. Apparently does have a history of schizophrenia as well. -: unknown - Related Data Home Medications Medication Instructions Recorded Confirmed Last Taken Metoprolol [Lopressor] 25 mg PO DAILY 07/08/19 09/26/19 2 Days Ago ~08/18/19 25 Previous Rx's Medication Instructions Recorded Last Taken Type Aspirin EC [Halfprin EC] 81 mg PO QDAY #30 tablet. 07/04/16 2 Days Ago Rx ~08/18/19 81 Sertraline [Zoloft] 50 mg PO QDAY #30 tablet 07/04/16 1 Day Ago Rx ~08/19/19 50 AtorvaSTATin [Lipitor] 40 mg PO QHS #30 tablet 12/01/16 2 Days Ago Rx ~08/18/19 40 Cyclobenzaprine [Flexeril] 10 mg PO Q8H PRN #15 tablet 07/20/19 2 Days Ago Rx ~08/18/19 Ibuprofen [Motrin] 800 mg PO Q8HR PRN #24 tablet 07/20/19 2 Days Ago Rx ~08/18/19 800 Allergies Allergy/AdvReac Type Severity Reaction Status Date / Time No Known Allergies Allergy Verified 06/09/15 00:02 ED Review of Systems ROS: Stated complaint: MH/CHEST PAIN Other details as noted in HPI Comment: Unobtainable due to pts medical conditions ED Past Medical Hx - Past Medical History Previous Medical History?: Yes Hx Hypertension: Yes Hx CVA: Yes Hx Congestive Heart Failure: No Hx Diabetes: No Hx Psychiatric Treatment: Yes Hx Asthma: No Hx COPD: No Additional medical history: schizophrenia, anxiety. Hyperlipidemia - Surgical History Past Surgical History?: Yes Hx Appendectomy: Yes - Social History Smoking Status: Current Every Day Smoker Substance Use Type: Alcohol, Marijuana - Medications Home Medications: Home Medications Medication Instructions Recorded Confirmed Last Taken Type Aspirin EC [Halfprin EC] 81 mg PO QDAY #30 tablet. 07/04/16 09/26/19 2 Days Ago Rx ~08/18/19 81 Sertraline [Zoloft] 50 mg PO QDAY #30 tablet 07/04/16 09/26/19 1 Day Ago Rx ~08/19/19 50 AtorvaSTATin [Lipitor] 40 mg PO QHS #30 tablet 12/01/16 09/26/19 2 Days Ago Rx ~08/18/19 40 Metoprolol [Lopressor] 25 mg PO DAILY 07/08/19 09/26/19 2 Days Ago History ~08/18/19 25 Cyclobenzaprine [Flexeril] 10 mg PO Q8H PRN #15 tablet 07/20/19 09/26/19 2 Days Ago Rx ~08/18/19 Ibuprofen [Motrin] 800 mg PO Q8HR PRN #24 tablet 07/20/19 09/26/19 2 Days Ago Rx ~08/18/19 800 ED Physical Exam - General Limitations: Other (Snoring) General appearance: in no apparent distress, lethargic - Head Head exam: Present: atraumatic, normocephalic - Eye Eye exam: Present: normal appearance. Absent: scleral icterus Pupils: Present: miosis - ENT ENT exam: Present: mucous membranes moist - Neck Neck exam: Present: normal inspection - Respiratory Respiratory exam: Present: normal lung sounds bilaterally. Absent: respiratory distress - Cardiovascular Cardiovascular Exam: Present: regular rate, normal rhythm. Absent: systolic murmur, diastolic murmur, rubs, gallop - GI/Abdominal GI/Abdominal exam: Present: soft, normal bowel sounds. Absent: distended, tenderness, guarding, rebound - Rectal Rectal exam: Present: deferred - Extremities Exam Extremities exam: Present: normal inspection - Back Exam Back exam: Present: normal inspection - Neurological Exam Neurological exam: Present: altered - Psychiatric Psychiatric exam: Present: normal mood, flat affect - Skin Skin exam: Present: warm, dry, intact, normal color. Absent: rash ED Course Vital Signs 03/03/20 05:40 Temperature 98.8 F Pulse Rate 87 Respiratory 22 Rate O2 Sat by Pulse 97 Oximetry - Reevaluation(s) Reevaluation #1: Patient is now awake and fully ambulatory. He states he thinks he needs to stay in the hospital due to his "schizophrenia" and that "my suicidal ideation is getting worse". A 1013 was executed. Patient is medically clear for further psychiatric care/disposition. 03/03/20 11:42 ED Medical Decision Making - Lab Data Result diagrams: 03/03/20 06:58 03/03/20 06:58 Laboratory Results - last 24 hr 03/03/20 03/03/20 03/03/20 06:58 06:58 06:58 WBC RBC Hgb Hct MCV MCH MCHC RDW Plt Count Lymph % (Auto) [place] % (Auto) Eos % (Auto) Baso % (Auto) Lymph # (Auto) [place] # (Auto) Eos # (Auto) Baso # (Auto) Seg Neutrophils % Seg Neutrophils # Sodium 139 Potassium 3.9 Chloride 102.4 Carbon Dioxide 24 Anion Gap 17 BUN 14 Creatinine 1.1 Estimated GFR > 60 BUN/Creatinine Ratio 13 Glucose 109 H Calcium 9.4 Magnesium 2.00 Total Bilirubin 0.40 Direct Bilirubin < 0.2 AST 21 ALT 22 Alkaline Phosphatase 60 Total Creatine Kinase 438 H CK-MB (CK-2) 3.2 CK-MB (CK-2) Rel Index 0.7 Total Protein 7.2 Albumin 4.4 Albumin/Globulin Ratio 1.6 Salicylates < 0.3 L Acetaminophen 5.0 L Plasma/Serum Alcohol 03/03/20 03/03/20 06:58 06:58 WBC 6.0 RBC 5.19 H Hgb 15.0 Hct 43.6 MCV 84 MCH 29 MCHC 35 H RDW 13.3 Plt Count 179 Lymph % (Auto) 20.4 [place] % (Auto) 4.9 Eos % (Auto) 0.1 Baso % (Auto) 0.3 Lymph # (Auto) 1.2 [place] # (Auto) 0.3 Eos # (Auto) 0.0 Baso # (Auto) 0.0 Seg Neutrophils % 74.3 H Seg Neutrophils # 4.5 Sodium Potassium Chloride Carbon Dioxide Anion Gap BUN Creatinine Estimated GFR BUN/Creatinine Ratio Glucose Calcium Magnesium Total Bilirubin Direct Bilirubin AST ALT Alkaline Phosphatase Total Creatine Kinase CK-MB (CK-2) CK-MB (CK-2) Rel Index Total Protein Albumin Albumin/Globulin Ratio Salicylates Acetaminophen Plasma/Serum Alcohol < 0.01 Critical care attestation.: If time is entered above; I have spent that time in minutes in the direct care of this critically ill patient, excluding procedure time. ED Disposition Clinical Impression: Suicidal ideation, Acute psychosis, Medical clearance for psychiatric admission Schizophrenia Qualifiers: Schizophrenia type: unspecified Qualified Code(s): F20.9 - Schizophrenia, unspecified Disposition: DC/TX-65 PSY HOSP/PSY UNIT Is pt being admited?: No Does the pt Need Aspirin: No Condition: Stable Referrals: PRIMARY CARE, [Primary Care Provider] - 3-5 Days Time of Disposition: 11:43
[2020-03-03 07:11] LABS: Basophils % (Auto) 0.3 % (0.0-1.8); Eosinophils % (Auto) 0.1 % (0.0-4.3); Hematocrit 43.6 % (35.5-45.6); Lymphocytes # (Auto) 1.2 K/mm3 (1.2-5.4); Lymphocytes % (Auto) 20.4 % (13.4-35.0); Mean Corpuscular HGB Conc 35 % (32-34); Mean Corpuscular Volume 84 fl (84-94); Monocytes # (Auto) 0.3 K/mm3 (0.0-0.8); Monocytes % (Auto) 4.9 % (0.0-7.3); Platelet Count 179 K/mm3 (140-440); Red Blood Count 5.19 M/mm3 (3.65-5.03); Red Cell Distribution Width 13.3 % (13.2-15.2)
[2020-03-03 08:21] LABS: Creatine Kinase MB 3.2 ng/mL (0.0-4.0)
[2020-03-03 08:22] LABS: Alanine Aminotransferase 22 units/L (7-56); Albumin 4.4 g/dL (3.9-5); BUN/Creatinine Ratio 13; Bilirubin,Direct < 0.2 mg/dL (0-0.2); Blood Urea Nitrogen 14 mg/dL (9-20); Calcium 9.4 mg/dL (8.4-10.2); Hemolysis Index 3
--- NOTE | 2020-03-03 09:10 | Consultation ---
History of Present Illness - Reason for Consult Consult date: 03/03/20 Reason for consult: MHE Requesting physician: WILLIAM MURCIA - History of Present Psychiatric Illness Psyh HPI Patient is a 38y/o , currently unemployed -[place] male who currently resides with and has past psychiatric history of depression and schizophrenia who states he was brought to the ER by his for suicidal thoughts and depression. Patient is known to me from prior encounter, patient states that the stopper been going on in his life, was recently lost to family members, and one was to suicide, his inability to get a job, financial issues at home, and constant commanding auditory hallucination is here telling him that hi s life is no longer worth it and that he should just . Patient also endorses recent alcohol, cocaine and meth use. Patient also reports medication noncompliance that he is supposed to be on Zoloft, Remeron, and another antipsychotic medication that he currently does not remember. PAST PSYCHIATRIC HISTORY Diagnoses: Depression, and Schizophrenia Suicide attempts or Self-harm behavior: Twice Prior psychiatric hospitalizations: "I really don't remember" Substance Abuse history: Alcohol, meth Previous psychiatric medications tried: Zoloft Outpatient treatment: [facility] SOCIAL HISTORY Marital Status: Living Arrangements: Family Employment Status: Employed Access to guns/weapons: Denies Education: 12th grade History of abuse: Drug abuse in the past, alcohol Legal History: Denies ROS Constitutional: Negative for weight loss EMT: Negative for stridor Respiratory: Negative for cough or hemoptysis All other systems reviewed and are negative MENTAL STATUS EXAMINATION General Appearance: Dressed appropriately. Behavior: Calm and cooperative. Good eye contact. Mood: "depressed" Affect: Smiling inappropriately, Incongruent with stated mood Speech: Normal tone and pace Thought Process: Goal oriented Suicidal Ideation: Yes Homicidal Ideation: Denies Hallucinations: Denies Delusions: None elicited Insight and Judgment: Limited Memory/Cognition: Limited Assessment and Plan Assessment and Plan - Psychiatric problem (1) MDD (major depressive disorder), recurrent episode Current Visit: Yes Status: Acute F33.9 (2) Methamphetamine dependence Current Visit: Yes Status: Acute F15.10 RECOMMENDATIONS Assess CIWA MEDICATIONS Start Abilify 5mg po daily Risks, benefits and alternatives of medications discussed with the patient, questions answered and consent obtained from patient. PSYCHOTHERAPY: Supportive psychotherapy provided MEDICAL: Per primary team DELIRIUM PRECAUTIONS: Please re-orient patient frequently, keep lights on during the day, and minimize benzodiazepines and opiates as these medications could worsen patient's confusion. [employer] LIMOUSINE: Per medical team DISPOSITION:Recommend acute inpatient psychiatric hospitalization at this time. The patient may transfer to an acute facility once medically clear. Will continue to follow. Thank you for this consult. Medications and Allergies Allergies Allergy/AdvReac Type Severity Reaction Status Date / Time No Known Allergies Allergy Verified 06/09/15 00:02 Home Medications Medication Instructions Recorded Confirmed Last Taken Type Aspirin EC [Halfprin EC] 81 mg PO QDAY #30 tablet. 07/04/16 09/26/19 2 Days Ago Rx ~08/18/19 81 Sertraline [Zoloft] 50 mg PO QDAY #30 tablet 07/04/16 09/26/19 1 Day Ago Rx ~08/19/19 50 AtorvaSTATin [Lipitor] 40 mg PO QHS #30 tablet 12/01/16 09/26/19 2 Days Ago Rx ~08/18/19 40 Metoprolol [Lopressor] 25 mg PO DAILY 07/08/19 09/26/19 2 Days Ago History ~08/18/19 25 Cyclobenzaprine [Flexeril] 10 mg PO Q8H PRN #15 tablet 07/20/19 09/26/19 2 Days Ago Rx ~08/18/19 Ibuprofen [Motrin] 800 mg PO Q8HR PRN #24 tablet 07/20/19 09/26/19 2 Days Ago Rx ~08/18/19 800 Mental Status Exam - Vital signs Last Vital Signs Temp 98.8 F 03/03/20 05:40 Pulse 87 03/03/20 05:40 Resp 22 03/03/20 05:40 BP Pulse Ox 97 03/03/20 05:40 Results Result Diagrams: 03/03/20 06:58 03/03/20 06:58 Abnormal lab results 03/03/20 03/03/20 03/03/20 Range/Units 06:58 06:58 06:58 RBC (3.65-5.03) M/mm3 MCHC (32-34) % Seg Neutrophils % (40.0-70.0) % Glucose 109 H (75-100) mg/dL Total Creatine Kinase 438 H (55-170) units/L Salicylates < 0.3 L (2.8-20.0) mg/dL Acetaminophen 5.0 L (10.0-30.0) ug/mL 03/03/20 Range/Units 06:58 RBC 5.19 H (3.65-5.03) M/mm3 MCHC 35 H (32-34) % Seg Neutrophils % 74.3 H (40.0-70.0) % Glucose (75-100) mg/dL Total Creatine Kinase (55-170) units/L Salicylates (2.8-20.0) mg/dL Acetaminophen (10.0-30.0) ug/mL All other labs normal. Assessment and Plan - Psychiatric problem (1) MDD (major depressive disorder), recurrent episode Current Visit: Yes Status: Acute (2) Methamphetamine dependence Current Visit: Yes Status: Acute
[2020-03-03 11:59] LABS: Bilirubin,Urine NEG (Negative); Blood,Urine NEG (Negative); Color,Urine Yellow (Yellow); Mucus,Urine FEW /HPF; Protein,Urine <15 mg/dL mg/dL (Negative)
[2020-03-03 12:16] LABS: Benzodiazepines Screen,Urine Negative; Cannabinoid Screen,Urine Negative; Cocaine Screen,Urine Negative; Methadone Screen,Urine Negative; Opiate Screen,Urine Negative
[2020-03-03 12:36] LABS: Amphetamine Screen,Urine Positive
[2020-03-03] MEDS ORDERED: LORazepam 1 MG TAB PO PRN (14:15)
[2020-03-03] MEDS: VALPROIC ACID 250 MG CAP PO SCH ×2 (14:21→21:35)
[2020-03-03] MEDS: SERTRALINE 50 MG TAB PO SCH (14:21)
[2020-03-03] MEDS: ARIPiprazole 15 MG TAB PO SCH (14:39)
[2020-03-03] MEDS: METOPROLOL TARTRATE 50 MG TAB PO SCH (14:39)
[2020-03-04] MEDS: VALPROIC ACID 250 MG CAP PO SCH ×2 (09:54→21:45)
[2020-03-04] MEDS: METOPROLOL TARTRATE 50 MG TAB PO SCH (09:55)
[2020-03-04] MEDS: SERTRALINE 50 MG TAB PO SCH (09:55)
[2020-03-05] MEDS: VALPROIC ACID 250 MG CAP PO SCH ×2 (09:43→22:23)
[2020-03-05] MEDS: SERTRALINE 50 MG TAB PO SCH (09:44)
[2020-03-05] MEDS: METOPROLOL TARTRATE 50 MG TAB PO SCH (09:45)
--- NOTE | 2020-03-06 08:23 | Progress Note ---
Subjective - Reason for Consult Consult date: 03/06/20 Reason for consult: MHE Requesting physician: WILLIAM MURCIA - Chief Complaint Chief complaint: Psych Progress Patient seen this A.M. reports feeling much better, says he has been sleeping well, denies SI, HI and AVH and requesting to be discharged and will follow up outpt if resources will be provided. ROS Constitutional: Negative for weight loss EMT: Negative for stridor Respiratory: Negative for cough or hemoptysis All other systems reviewed and are negative MENTAL STATUS EXAMINATION General Appearance: Dressed appropriately. Behavior: Calm and cooperative. Good eye contact. Mood: "improved" Affect: congruent with mood Speech: Normal tone and pace Thought Process: Goal oriented Suicidal Ideation: denies Homicidal Ideation: Denies Hallucinations: Denies Delusions: None elicited Insight and Judgment: good Memory/Cognition: normal Assessment and Plan Assessment and Plan - Psychiatric problem (1) MDD (major depressive disorder), recurrent episode Current Visit: Yes Status: Acute F33.9 (2) Methamphetamine dependence Current Visit: Yes Status: Acute F15.10 RECOMMENDATIONS Assess CIWA MEDICATIONS Start Abilify 5mg po daily Risks, benefits and alternatives of medications discussed with the patient, questions answered and consent obtained from patient. PSYCHOTHERAPY: Supportive psychotherapy provided MEDICAL: Per primary team DELIRIUM PRECAUTIONS: Please re-orient patient frequently, keep lights on during the day, and minimize benzodiazepines and opiates as these medications could worsen patient's confusion. 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 Disposition discussed with Dr. Loredo Will continue to follow. Thank you for this consult. Mental Status Exam - Vital signs Last Vital Signs Temp 98 F 03/06/20 06:00 Pulse 58 L 03/06/20 06:00 Resp 20 03/06/20 06:00 BP 120/71 03/06/20 06:00 Pulse Ox 99 03/06/20 06:00 Assessment and Plan - Patient Problems (1) MDD (major depressive disorder), recurrent episode Status: Acute (2) Methamphetamine dependence Status: Acute
[2020-03-06 09:02] VITALS: BP 127/79
[2020-03-06] MEDS: SERTRALINE 50 MG TAB PO SCH (11:01)
[2020-03-06] MEDS: METOPROLOL TARTRATE 50 MG TAB PO SCH (11:01)
[2020-03-06] MEDS: ARIPiprazole 15 MG TAB PO SCH (11:02)
[2020-03-06] MEDS: VALPROIC ACID 250 MG CAP PO SCH (11:02)
== END 2020-03-06 11:48 | disposition home or self-care (01) ==
LOC: ED 05:27
DX: F20.9 Schizophrenia, unspecified (principal); I10 Essential (primary) hypertension; F41.9 Anxiety disorder, unspecified; F17.200 Nicotine dependence, unspecified, uncomplicated; F12.10 Cannabis abuse, uncomplicated; Z79.82 Long term (current) use of aspirin; Z79.899 Other long term (current) drug therapy; Z04.6 Encounter for general psychiatric examination, requested by authority; Z20.828 Contact with and (suspected) exposure to other viral communicable diseases
CPT/HCPCS: 36415; 80048; 80076; 80307; 81001; 82550; 82553; 83735; 85025; 93005; 96372; 99284; J1200; J2060; J3486; J7030; U0003; 80320; G0480

== ENCOUNTER 2020-06-18 22:04 | Emergency (ER) | payer SELFPAY ==
[2020-06-18] MEDS ORDERED: ZIPRASIDONE MESYLATE 20 MG VIAL IM ONE ×2 (22:32→22:33)
[2020-06-18 22:34] LABS: Basophils % (Auto) 0.3 % (0.0-1.8); Eosinophils % (Auto) 0.1 % (0.0-4.3); Hematocrit 50.1 % (35.5-45.6); Hemoglobin 16.9 gm/dl (11.8-15.2); Lymphocytes # (Auto) 1.4 K/mm3 (1.2-5.4); Lymphocytes % (Auto) 12.5 % (13.4-35.0); Mean Corpuscular HGB Conc 34 % (32-34); Mean Corpuscular Volume 86 fl (84-94); Monocytes # (Auto) 0.6 K/mm3 (0.0-0.8); Platelet Count 262 K/mm3 (140-440); Red Blood Count 5.86 M/mm3 (3.65-5.03); Red Cell Distribution Width 13.4 % (13.2-15.2)
--- NOTE | 2020-06-18 22:38 | Emergency Department Report ---
ED Psych HPI - General Chief Complaint: Psych Stated Complaint: SCHIZO;MENTAL HEALTH Time Seen by Provider: 06/18/20 22:29 Source: patient Mode of arrival: Ambulatory - History of Present Illness Initial Comments: Patient is 39 years old male with history of bipolar disorder and substance abuse. Patient brought to the emergency room via EMS. Patient found to be very agitated and paranoid. Patient stated that people are trying to get him. Obviously patient was running. Patient is sweating. Patient stated that he see shadows and people talking about him. Patient obviously responding to internal stimuli. Patient given Geodon 20 mg IM. Complaint: altered mental status -: Sudden Associated Psychiatric Symptoms: racing thoughts, auditory hallucinations, visual hallucinations Quality: constant Context: recent drug abuse Associated Symptoms: denies other symptoms Treatments Prior to Arrival: none - Related Data Home Medications Medication Instructions Recorded Confirmed Last Taken Metoprolol [Lopressor] 25 mg PO DAILY 07/08/19 03/03/20 2 Days Ago ~08/18/19 25 Previous Rx's Medication Instructions Recorded Last Taken Type Aspirin EC [Halfprin EC] 81 mg PO QDAY #30 tablet. 07/04/16 2 Days Ago Rx ~08/18/19 81 Sertraline [Zoloft] 50 mg PO QDAY #30 tablet 07/04/16 1 Day Ago Rx ~08/19/19 50 AtorvaSTATin [Lipitor] 40 mg PO QHS #30 tablet 12/01/16 2 Days Ago Rx ~08/18/19 40 Cyclobenzaprine [Flexeril] 10 mg PO Q8H PRN #15 tablet 07/20/19 2 Days Ago Rx ~08/18/19 Ibuprofen [Motrin] 800 mg PO Q8HR PRN #24 tablet 07/20/19 2 Days Ago Rx ~08/18/19 800 ARIPiprazole [Abilify TAB] 15 mg PO DAILY #30 tablet 03/06/20 Unknown Rx Sertraline [Zoloft] 50 mg PO DAILY #30 tablet 03/06/20 Unknown Rx Valproic Acid [Depakene] 500 mg PO BID #60 capsule 03/06/20 Unknown Rx DOXYCYCLINE Hyclate [Vibramycin] 100 mg PO Q12HR #14 capsule 06/19/20 Unknown Rx Allergies Allergy/AdvReac Type Severity Reaction Status Date / Time No Known Allergies Allergy Verified 06/09/15 00:02 ED Review of Systems ROS: Stated complaint: SCHIZO;MENTAL HEALTH Other details as noted in HPI Comment: All other systems reviewed and negative Constitutional: denies: chills, fever Respiratory: denies: cough, shortness of breath, SOB with exertion Cardiovascular: denies: chest pain, palpitations Gastrointestinal: denies: abdominal pain, nausea, vomiting Psychiatric: anxiety, auditory hallucinations, visual hallucinations. denies: homicidal thoughts, suicidal thoughts ED Past Medical Hx - Past Medical History Hx Hypertension: Yes Hx CVA: Yes Hx Congestive Heart Failure: No Hx Diabetes: No Hx Psychiatric Treatment: Yes Hx Asthma: No Hx COPD: No Additional medical history: schizophrenia, anxiety. Hyperlipidemia - Surgical History Hx Appendectomy: Yes - Social History Smoking Status: Current Every Day Smoker - Medications Home Medications: Home Medications Medication Instructions Recorded Confirmed Last Taken Type Aspirin EC [Halfprin EC] 81 mg PO QDAY #30 tablet. 07/04/16 03/03/20 2 Days Ago Rx ~08/18/19 81 Sertraline [Zoloft] 50 mg PO QDAY #30 tablet 07/04/16 03/03/20 1 Day Ago Rx ~08/19/19 50 AtorvaSTATin [Lipitor] 40 mg PO QHS #30 tablet 12/01/16 03/03/20 2 Days Ago Rx ~08/18/19 40 Metoprolol [Lopressor] 25 mg PO DAILY 07/08/19 03/03/20 2 Days Ago History ~08/18/19 25 Cyclobenzaprine [Flexeril] 10 mg PO Q8H PRN #15 tablet 07/20/19 03/03/20 2 Days Ago Rx ~08/18/19 Ibuprofen [Motrin] 800 mg PO Q8HR PRN #24 tablet 07/20/19 03/03/20 2 Days Ago Rx ~08/18/19 800 ARIPiprazole [Abilify TAB] 15 mg PO DAILY #30 tablet 03/06/20 Unknown Rx Sertraline [Zoloft] 50 mg PO DAILY #30 tablet 03/06/20 Unknown Rx Valproic Acid [Depakene] 500 mg PO BID #60 capsule 03/06/20 Unknown Rx DOXYCYCLINE Hyclate [Vibramycin] 100 mg PO Q12HR #14 capsule 06/19/20 Unknown Rx ED Physical Exam - General Limitations: No Limitations General appearance: alert, anxious, other (AGITATED) - Head Head exam: Present: atraumatic, normocephalic, normal inspection - Eye Eye exam: Present: normal appearance, PERRL - ENT ENT exam: Present: normal exam, normal orophraynx, mucous membranes moist - Neck Neck exam: Present: normal inspection, full ROM. Absent: tenderness, meningismus - Respiratory Respiratory exam: Present: normal lung sounds bilaterally - Cardiovascular Cardiovascular Exam: Present: tachycardia - GI/Abdominal GI/Abdominal exam: Present: soft, normal bowel sounds. Absent: distended, tenderness, guarding, rebound, rigid, organomegaly, mass, bruit, pulsatile mass, hernia - Extremities Exam Extremities exam: Present: normal inspection, full ROM, normal capillary refill. Absent: tenderness - Back Exam Back exam: Present: normal inspection, full ROM. Absent: CVA tenderness (R), CVA tenderness (L) - Neurological Exam Neurological exam: Present: alert, oriented X3, CN II-XII intact, normal gait, reflexes normal. Absent: motor sensory deficit - Psychiatric Psychiatric exam: Present: agitated, anxious, manic. Absent: homicidal ideation, suicidal ideation - Skin Skin exam: Present: warm, intact, normal color ED Course Vital Signs 06/18/20 06/18/20 06/19/20 22:13 23:00 01:44 Temperature 98.9 F 97.5 F L Pulse Rate 140 H 95 H Respiratory 20 20 20 Rate Blood Pressure 132/101 Blood Pressure 133/82 [Right] O2 Sat by Pulse 99 98 95 Oximetry 06/19/20 11:38 Temperature 98.4 F Pulse Rate 84 Respiratory 18 Rate Blood Pressure Blood Pressure 144/95 [Right] O2 Sat by Pulse 99 Oximetry ED Medical Decision Making - Lab Data Result diagrams: 06/18/20 22:23 06/18/20 22:23 Critical care attestation.: If time is entered above; I have spent that time in minutes in the direct care of this critically ill patient, excluding procedure time. ED Disposition Clinical Impression: Pyuria, Left flank pain, Polysubstance abuse Disposition: - TO HOME OR SELFCARE Is pt being admited?: No Condition: Good Instructions: Substance Use Disorder, Flank Pain, Adult Additional Instructions: Urinalysis suggested potential urinary tract infection, possibly from either gonorrhea or chlamydia. Patient treated empirically with both doxycycline and ceftriaxone to treat both of these entities. Cultures were sent today, and results will be available next 3-5 days. Please have your primary care doctor call the medical records department to obtain your culture results. Take the antibiotic therapy as directed. Patient may take [id number] Tylenol and/or ibuprofen as needed for pain. I recommend outpatient testing for sexually transmitted diseases, including hepatitis, syphilis and HIV. I also recommend that you abstain from sexual activity until you have completed her antibiotic therapy, a physician states that it is safe for you to resume sexual activity, and any partners that you have been sexually active with have been tested/treated/evaluated for sexual transmitted diseases. Please follow-up with physician within 3-5 days. I recommend that you return to the ER right away with worsening pain, migration of pain, intractable nausea/vomiting, inability tolerate liquid feeds. Please have a primary care doctor contact medical records department to follow- up on laboratory studies, culture results, and follow-up on nonemergent incidental abnormal findings. In addition, we recommend that the patient abstain/avoid consumption of marijuana and amphetamines. Recommend that patient avoid consumption of alcohol, tobacco and smoke products. In case of an emergency, please contact the following numbers: [place] Crisis and Access Line: Number: Crisis Text Line: (Text START) Number: 201340 Suicide Prevention Line: Number: Emergency Number: 911 SUBSTANCE ABUSE PROGRAMS: [facility]: Location: [place], [place] [employer] Address: [address] [place] [id number] [facility] Address: [address] [place] [address] [facility]: Address: [address] [place] [address] [facility]: Address: [address] [place] [address] [facility] Address: [address] [place] [address]. Please contact above numbers to attempt placement into free based program. Medicaid Programs: [facility]: Address: [address] [place] [id number] [facility]: Address: [address] [place] [id number] Prescriptions: DOXYCYCLINE Hyclate [Vibramycin] 100 mg PO Q12HR #14 capsule Referrals: [facility] [Provider Group] - 3-5 Days [facility] [Outside] - 3-5 Days VINCE ROMERO MD [Staff Physician] - 3-5 Days
[2020-06-18 22:58] LABS: Calcium 10.4 mg/dL (8.4-10.2)
[2020-06-19 00:20] LABS: Albumin 5.3 g/dL (3.9-5); Bilirubin,Direct 0.3 mg/dL (0-0.2)
[2020-06-19 07:24] LABS: Bilirubin,Urine NEG (Negative); Blood,Urine SM (Negative); Color,Urine Yellow (Yellow); Mucus,Urine 3+ /HPF; Protein,Urine <15 mg/dL mg/dL (Negative)
[2020-06-19 07:25] LABS: Benzodiazepines Screen,Urine Negative; Cocaine Screen,Urine Negative; Methadone Screen,Urine Negative; Opiate Screen,Urine Negative
[2020-06-19 08:07] LABS: Amphetamine Screen,Urine PRESUMPTIVE POSITIVE; Cannabinoid Screen,Urine PRESUMPTIVE POSITIVE
[2020-06-19] MEDS ORDERED: LIDOCAINE-MPF (1%) 10 MG/1 ML VIAL 5 ML INFILTRATI ONE ×2 (10:18→14:00)
[2020-06-19] MEDS ORDERED: ACETAMINOPHEN 325 MG TAB PO PRN (10:19)
[2020-06-19] MEDS ORDERED: diphenhydrAMINE 25 MG CAP PO PRN (10:19)
[2020-06-19] MEDS ORDERED: ONDANSETRON 4 MG ODT TAB PO PRN (10:19)
[2020-06-19] MEDS ORDERED: LORazepam 2 MG/ML VIAL IM PRN (10:19)
--- NOTE | 2020-06-19 10:21 | Event Note ---
Date: 06/19/20 The patient was evaluated in the emergency department for symptoms described in the history of present illness. He/she was evaluated in the context of the global COVID-19 pandemic, which necessitated consideration that the patient might be at risk for infection with the virus that causes COVID-19. Institutional protocols and algorithms that pertain to the evaluation of patients at risk for COVID-19 are in a state of rapid change based on information released by regulatory bodies including the CDC and federal and state organizations. These policies and algorithms were followed during the patient's care in the emergency department. Please note that these policies, procedures and recommendations changed on a rapid basis. Patient seen and examined. He is in no acute distress. He is ambulating with a steady gait. ER documentation reviewed and appreciated. Nursing documentation reviewed and appreciated. Laboratory studies are reviewed and appreciated. Tachycardia is resolved. Urinalysis is appreciated. I specifically asked the patient if he was having any genitourinary symptoms. He endorses dysuria for 1 week, but denies testicular pain, and also endorses left flank pain, "for months." He denies fever, chills. He also states he is only sexually active with his female partner, and only endorses oral and vaginal intercourse. He denies allergies to medicines. Urinalysis suggests pyuria. He will be treated empirically with ceftriaxone and doxycycline. Holding medications are ordered. CT scan of the abdomen pelvis ordered given complaint of flank pain. Psychiatric recommendations are reviewed and appreciated. 06/19/2020; 13: 28 PM Psychiatry team has recommended the patient be discharged. His CT scan abdomen pelvis is negative for acute findings. He will be discharged, treated empirically for pyuria. CT ABDOMEN AND PELVIS WITHOUT CONTRAST INDICATION / CLINICAL INFORMATION: left flank pain. TECHNIQUE: Axial CT images were obtained through the abdomen and pelvis without IV contrast. All CT scans at this location are performed using CT dose reduction for ALARA by means of automated exposure control. COMPARISON: None available. FINDINGS: LOWER CHEST: No significant abnormality. LIVER: No significant abnormality. GALLBLADDER: No significant abnormality. BILE DUCTS: No significant abnormality. PANCREAS: No significant abnormality. SPLEEN: No significant abnormality. ADRENALS: No significant abnormality. RIGHT KIDNEY / URETER: No significant abnormality. LEFT KIDNEY / URETER: No significant abnormality. STOMACH / SMALL BOWEL: No significant abnormality. COLON: No significant abnormality. APPENDIX: Appendectomy. PERITONEUM: No free fluid. No free air. No fluid collection. LYMPH NODES: No significant adenopathy. AORTA / ARTERIES: No significant abnormality. IVC / VEINS: No significant abnormality. URINARY BLADDER: No significant abnormality. REPRODUCTIVE ORGANS: No significant abnormality. ADDITIONAL FINDINGS: None. SKELETAL SYSTEM: No acute abnormality. There is a grade 1 spondylolisthesis at L5-S1 IMPRESSION: 1. No acute abnormality. There is no obstruction, inflammation, or free air. No renal or ureteral calculi are seen. There is no hydronephrosis. Signer Name: Juancarlos Kan MD Signed: 06/19/2020 1:20 PM Workstation Name: [id number] Transcribed By: SS Dictated By: Juancarlos Kan MD Electronically Authenticated By: Juancarlos Kan MD Signed Date/Time: 06/19/20 1320 DD/ 1316 TD/TT: Vital Signs 06/18/20 06/18/20 06/19/20 22:13 23:00 01:44 Temperature 98.9 F 97.5 F L Pulse Rate 140 H 95 H Respiratory 20 20 20 Rate Blood Pressure 132/101 Blood Pressure 133/82 [Right] O2 Sat by Pulse 99 98 95 Oximetry Lab Results 06/18/20 06/18/20 06/18/20 Range/Units 22:23 22:23 22:23 WBC 11.3 H (4.5-11.0) K/mm3 RBC 5.86 H (3.65-5.03) M/mm3 Hgb 16.9 H (11.8-15.2) gm/dl Hct 50.1 H (35.5-45.6) % MCV 86 (84-94) fl MCH 29 (28-32) pg MCHC 34 (32-34) % RDW 13.4 (13.2-15.2) % Plt Count 262 (140-440) K/mm3 Lymph % (Auto) 12.5 L (13.4-35.0) % [place] % (Auto) 5.0 (0.0-7.3) % Eos % (Auto) 0.1 (0.0-4.3) % Baso % (Auto) 0.3 (0.0-1.8) % Lymph # (Auto) 1.4 (1.2-5.4) K/mm3 [place] # (Auto) 0.6 (0.0-0.8) K/mm3 Eos # (Auto) 0.0 (0.0-0.4) K/mm3 Baso # (Auto) 0.0 (0.0-0.1) K/mm3 Seg Neutrophils % 82.1 H (40.0-70.0) % Seg Neutrophils # 9.3 H (1.8-7.7) K/mm3 Sodium 143 (137-145) mmol/L Potassium 4.0 (3.6-5.0) mmol/L Chloride 98.8 (98-107) mmol/L Carbon Dioxide 23 (22-30) mmol/L Anion Gap 25 mmol/L BUN 14 (9-20) mg/dL Creatinine 1.7 H (0.8-1.3) mg/dL Estimated GFR 55 ml/min BUN/Creatinine Ratio 8 % Glucose 97 (75-100) mg/dL Calcium 10.4 H (8.4-10.2) mg/dL Total Bilirubin (0.1-1.2) mg/dL Direct Bilirubin (0-0.2) mg/dL Indirect Bilirubin mg/dL AST (5-40) units/L ALT (7-56) units/L Alkaline Phosphatase (35-129) units/L Total Protein (6.3-8.2) g/dL Albumin (3.9-5) g/dL Albumin/Globulin Ratio % Urine Color (Yellow) Urine Turbidity (Clear) Urine pH (5.0-7.0) Ur Specific [place] (1.003-1.030) Urine Protein (Negative) mg/dL Urine Glucose (UA) (Negative) mg/dL Urine Ketones (Negative) mg/dL Urine Blood (Negative) Urine Nitrite (Negative) Urine Bilirubin (Negative) Urine Urobilinogen (<2.0) mg/dL Ur Leukocyte Esterase (Negative) Urine WBC (Auto) (0.0-6.0) /HPF Urine RBC (Auto) (0.0-6.0) /HPF U Epithel Cells (Auto) (0-13.0) /HPF Urine Mucus /HPF Salicylates < 0.3 L (2.8-20.0) mg/dL Urine Opiates Screen Urine Methadone Screen Acetaminophen (10.0-30.0) ug/mL Ur Barbiturates Screen Ur Phencyclidine Scrn Ur Amphetamines Screen U Benzodiazepines Scrn Urine Cocaine Screen U Marijuana (THC) Screen Drugs of Abuse Note 06/18/20 06/18/20 06/19/20 Range/Units 22:23 23:00 Unknown WBC (4.5-11.0) K/mm3 RBC (3.65-5.03) M/mm3 Hgb (11.8-15.2) gm/dl Hct (35.5-45.6) % MCV (84-94) fl MCH (28-32) pg MCHC (32-34) % RDW (13.2-15.2) % Plt Count (140-440) K/mm3 Lymph % (Auto) (13.4-35.0) % [place] % (Auto) (0.0-7.3) % Eos % (Auto) (0.0-4.3) % Baso % (Auto) (0.0-1.8) % Lymph # (Auto) (1.2-5.4) K/mm3 [place] # (Auto) (0.0-0.8) K/mm3 Eos # (Auto) (0.0-0.4) K/mm3 Baso # (Auto) (0.0-0.1) K/mm3 Seg Neutrophils % (40.0-70.0) % Seg Neutrophils # (1.8-7.7) K/mm3 Sodium (137-145) mmol/L Potassium (3.6-5.0) mmol/L Chloride (98-107) mmol/L Carbon Dioxide (22-30) mmol/L Anion Gap mmol/L BUN (9-20) mg/dL Creatinine (0.8-1.3) mg/dL Estimated GFR ml/min BUN/Creatinine Ratio % Glucose (75-100) mg/dL Calcium (8.4-10.2) mg/dL Total Bilirubin 1.00 (0.1-1.2) mg/dL Direct Bilirubin 0.3 H (0-0.2) mg/dL Indirect Bilirubin 0.7 mg/dL AST 43 H (5-40) units/L ALT 33 (7-56) units/L Alkaline Phosphatase 82 (35-129) units/L Total Protein 8.0 (6.3-8.2) g/dL Albumin 5.3 H (3.9-5) g/dL Albumin/Globulin Ratio 2.0 % Urine Color Yellow (Yellow) Urine Turbidity Slightly-cloudy (Clear) Urine pH 5.0 (5.0-7.0) Ur Specific [place] 1.010 (1.003-1.030) Urine Protein <15 mg/dl (Negative) mg/dL Urine Glucose (UA) Neg (Negative) mg/dL Urine Ketones 20 (Negative) mg/dL Urine Blood Sm (Negative) Urine Nitrite Neg (Negative) Urine Bilirubin Neg (Negative) Urine Urobilinogen 2.0 (<2.0) mg/dL Ur Leukocyte Esterase Mod (Negative) Urine WBC (Auto) 23.0 H (0.0-6.0) /HPF Urine RBC (Auto) 2.0 (0.0-6.0) /HPF U Epithel Cells (Auto) 1.0 (0-13.0) /HPF Urine Mucus 3+ /HPF Salicylates (2.8-20.0) mg/dL Urine Opiates Screen Urine Methadone Screen Acetaminophen 5.0 L (10.0-30.0) ug/mL Ur Barbiturates Screen Ur Phencyclidine Scrn Ur Amphetamines Screen U Benzodiazepines Scrn Urine Cocaine Screen U Marijuana (THC) Screen Drugs of Abuse Note 06/19/20 Range/Units Unknown WBC (4.5-11.0) K/mm3 RBC (3.65-5.03) M/mm3 Hgb (11.8-15.2) gm/dl Hct (35.5-45.6) % MCV (84-94) fl MCH (28-32) pg MCHC (32-34) % RDW (13.2-15.2) % Plt Count (140-440) K/mm3 Lymph % (Auto) (13.4-35.0) % [place] % (Auto) (0.0-7.3) % Eos % (Auto) (0.0-4.3) % Baso % (Auto) (0.0-1.8) % Lymph # (Auto) (1.2-5.4) K/mm3 [place] # (Auto) (0.0-0.8) K/mm3 Eos # (Auto) (0.0-0.4) K/mm3 Baso # (Auto) (0.0-0.1) K/mm3 Seg Neutrophils % (40.0-70.0) % Seg Neutrophils # (1.8-7.7) K/mm3 Sodium (137-145) mmol/L Potassium (3.6-5.0) mmol/L Chloride (98-107) mmol/L Carbon Dioxide (22-30) mmol/L Anion Gap mmol/L BUN (9-20) mg/dL Creatinine (0.8-1.3) mg/dL Estimated GFR ml/min BUN/Creatinine Ratio % Glucose (75-100) mg/dL Calcium (8.4-10.2) mg/dL Total Bilirubin (0.1-1.2) mg/dL Direct Bilirubin (0-0.2) mg/dL Indirect Bilirubin mg/dL AST (5-40) units/L ALT (7-56) units/L Alkaline Phosphatase (35-129) units/L Total Protein (6.3-8.2) g/dL Albumin (3.9-5) g/dL Albumin/Globulin Ratio % Urine Color (Yellow) Urine Turbidity (Clear) Urine pH (5.0-7.0) Ur Specific [place] (1.003-1.030) Urine Protein (Negative) mg/dL Urine Glucose (UA) (Negative) mg/dL Urine Ketones (Negative) mg/dL Urine Blood (Negative) Urine Nitrite (Negative) Urine Bilirubin (Negative) Urine Urobilinogen (<2.0) mg/dL Ur Leukocyte Esterase (Negative) Urine WBC (Auto) (0.0-6.0) /HPF Urine RBC (Auto) (0.0-6.0) /HPF U Epithel Cells (Auto) (0-13.0) /HPF Urine Mucus /HPF Salicylates (2.8-20.0) mg/dL Urine Opiates Screen Negative Urine Methadone Screen Negative Acetaminophen (10.0-30.0) ug/mL Ur Barbiturates Screen Negative Ur Phencyclidine Scrn Negative Ur Amphetamines Screen Presumptive positive U Benzodiazepines Scrn Negative Urine Cocaine Screen Negative U Marijuana (THC) Screen Presumptive positive Drugs of Abuse Note Disclamer
--- NOTE | 2020-06-19 10:31 | Consultation ---
History of Present Illness - Reason for Consult Consult date: 06/19/20 Reason for consult: SI - History of Present Psychiatric Illness Per ED Note: Patient is 39 years old male with history of bipolar disorder and substance abuse. Patient brought to the emergency room via EMS. Patient found to be very agitated and paranoid. Patient stated that people are trying to get him. Obviously patient was running. Patient is sweating. Patient stated that he see shadows and people talking about him. Patient obviously responding to internal stimuli. Patient given Geodon 20 mg IM. The patient was seen today, he is known to me from previous visits. He is calm, cooperative, and conversational. The patient says he was paranoid and hearing voices when he came in. The patient states he had been doing drugs. He has a history of methamphetamine dependence. The patient now denies any hallucinations or fear of endangerment whatsoever. He is asking for drug rehab. He says "I know my is getting tired of me." The patient states "every time yall send me somewhere they only keep me like 1 or 2 days." He denies SI/HI. PAST PSYCHIATRIC HISTORY Diagnoses: Depression, and Schizophrenia Suicide attempts or Self-harm behavior: Twice Prior psychiatric hospitalizations: yes Substance Abuse history: Alcohol, meth Previous psychiatric medications tried: Zoloft Outpatient treatment: [facility] SOCIAL HISTORY Marital Status: Living Arrangements: Family Employment Status: Employed Access to guns/weapons: Denies Education: 12th grade History of abuse: Drug abuse in the past, alcohol Legal History: Denies ROS Constitutional: Negative for weight loss EMT: Negative for stridor Respiratory: Negative for cough or hemoptysis All other systems reviewed and are negative MENTAL STATUS EXAMINATION General Appearance: Dressed appropriately. Behavior: Calm and cooperative. Good eye contact. Mood: okay Affect: Euthymic Speech: Normal tone and pace Thought Process: Goal oriented Suicidal Ideation: Denies Homicidal Ideation: Denies Hallucinations: Denies Delusions: None elicited Insight and Judgment: Limited Memory/Cognition: Limited Assessment and Plan Methamphetamine Dependence with induced Mood disorder Bipolar Disorder Treatment Plan Continue home medications as previously prescribed. Risks, benefits and alternatives of medications discussed with the patient, questions answered and consent obtained from patient. PSYCHOTHERAPY: Supportive psychotherapy provided MEDICAL: Per primary team DELIRIUM PRECAUTIONS: Please re-orient patient frequently, keep lights on during the day, and minimize benzodiazepines and opiates as these medications could worsen patient's confusion. ASSOCIATE DIRECTOR CAREER SERVICES: Per primary DISPOSITION: Do not recommend acute inpatient psychiatric hospitalization at thi s time. The patient is to follow up with outpatient psychiatry in 7 to 14 days upon discharge The real estate executive assistant is to give the patient outpatient resources Will sign off. Thank you for the consult. Please contact with any questions and/or concerns. Case discussed with Dr. Mims who agrees with current disposition Medications and Allergies Allergies Allergy/AdvReac Type Severity Reaction Status Date / Time No Known Allergies Allergy Verified 06/09/15 00:02 Home Medications Medication Instructions Recorded Confirmed Last Taken Type Aspirin EC [Halfprin EC] 81 mg PO QDAY #30 tablet. 07/04/16 03/03/20 2 Days A go Rx ~08/18/19 81 Sertraline [Zoloft] 50 mg PO QDAY #30 tablet 07/04/16 03/03/20 1 Day Ago Rx ~08/19/19 50 AtorvaSTATin [Lipitor] 40 mg PO QHS #30 tablet 12/01/16 03/03/20 2 Days Ago Rx ~08/18/19 40 Metoprolol [Lopressor] 25 mg PO DAILY 07/08/19 03/03/20 2 Days Ago History ~08/18/19 25 Cyclobenzaprine [Flexeril] 10 mg PO Q8H PRN #15 tablet 07/20/19 03/03/20 2 Days Ago Rx ~08/18/19 Ibuprofen [Motrin] 800 mg PO Q8HR PRN #24 tablet 07/20/19 03/03/20 2 Days Ago Rx ~08/18/19 800 ARIPiprazole [Abilify TAB] 15 mg PO DAILY #30 tablet 03/06/20 Unknown Rx Sertraline [Zoloft] 50 mg PO DAILY #30 tablet 03/06/20 Unknown Rx Valproic Acid [Depakene] 500 mg PO BID #60 capsule 03/06/20 Unknown Rx Active Meds: Active Medications Acetaminophen (Acetaminophen 325 Mg Tab) 650 mg PO Q6HR PRN PRN Reason: PAIN Diphenhydramine HCl (Diphenhydramine 25 Mg Cap) 50 mg PO QHS PRN PRN Reason: Insomnia Doxycycline Hyclate (Doxycycline 100 Mg Cap) 100 mg PO BID [facility]; Protocol Stop: 06/25/20 22:01 Lorazepam (Lorazepam 2 Mg/Ml Vial) 2 mg IM Q4HR PRN PRN Reason: Agitation Ondansetron HCl (Ondansetron 4 Mg Odt Tab) 4 mg PO Q6HR PRN PRN Reason: Nausea Mental Status Exam - Vital signs Last Vital Signs Temp 97.5 F L 06/19/20 01:44 Pulse 95 H 06/19/20 01:44 Resp 20 06/19/20 01:44 BP 133/82 06/19/20 01:44 Pulse Ox 95 06/19/20 01:44 Results Result Diagrams: 06/18/20 22:23 06/18/20 22:23 Abnormal lab results 06/18/20 06/18/20 06/18/20 Range/Units 22:23 22:23 22:23 WBC 11.3 H (4.5-11.0) K/mm3 RBC 5.86 H (3.65-5.03) M/mm3 Hgb 16.9 H (11.8-15.2) gm/dl Hct 50.1 H (35.5-45.6) % Lymph % (Auto) 12.5 L (13.4-35.0) % Seg Neutrophils % 82.1 H (40.0-70.0) % Seg Neutrophils # 9.3 H (1.8-7.7) K/mm3 Creatinine 1.7 H (0.8-1.3) mg/dL Calcium 10.4 H (8.4-10.2) mg/dL Direct Bilirubin (0-0.2) mg/dL AST (5-40) units/L Albumin (3.9-5) g/dL Urine WBC (Auto) (0.0-6.0) /HPF Salicylates < 0.3 L (2.8-20.0) mg/dL Acetaminophen (10.0-30.0) ug/mL 06/18/20 06/18/20 06/19/20 Range/Units 22:23 23:00 Unknown WBC (4.5-11.0) K/mm3 RBC (3.65-5.03) M/mm3 Hgb (11.8-15.2) gm/dl Hct (35.5-45.6) % Lymph % (Auto) (13.4-35.0) % Seg Neutrophils % (40.0-70.0) % Seg Neutrophils # (1.8-7.7) K/mm3 Creatinine (0.8-1.3) mg/dL Calcium (8.4-10.2) mg/dL Direct Bilirubin 0.3 H (0-0.2) mg/dL AST 43 H (5-40) units/L Albumin 5.3 H (3.9-5) g/dL Urine WBC (Auto) 23.0 H (0.0-6.0) /HPF Salicylates (2.8-20.0) mg/dL Acetaminophen 5.0 L (10.0-30.0) ug/mL All other labs normal.
[2020-06-19] MEDS ORDERED: DOXYCYCLINE 100 MG CAP PO SCH (11:00)
[2020-06-19 11:40] VITALS: BP 144/95
--- NOTE | 2020-06-19 13:24 | Cat Scan Report ---
CT ABDOMEN AND PELVIS WITHOUT CONTRAST INDICATION / CLINICAL INFORMATION: left flank pain. TECHNIQUE: Axial CT images were obtained through the abdomen and pelvis without IV contrast. All CT scans at this location are performed using CT dose reduction for ALARA by means of automated exposure control. COMPARISON: None available. FINDINGS: LOWER CHEST: No significant abnormality. LIVER: No significant abnormality. GALLBLADDER: No significant abnormality. BILE DUCTS: No significant abnormality. PANCREAS: No significant abnormality. SPLEEN: No significant abnormality. ADRENALS: No significant abnormality. RIGHT KIDNEY / URETER: No significant abnormality. LEFT KIDNEY / URETER: No significant abnormality. STOMACH / SMALL BOWEL: No significant abnormality. COLON: No significant abnormality. APPENDIX: Appendectomy. PERITONEUM: No free fluid. No free air. No fluid collection. LYMPH NODES: No significant adenopathy. AORTA / ARTERIES: No significant abnormality. IVC / VEINS: No significant abnormality. URINARY BLADDER: No significant abnormality. REPRODUCTIVE ORGANS: No significant abnormality. ADDITIONAL FINDINGS: None. SKELETAL SYSTEM: No acute abnormality. There is a grade 1 spondylolisthesis at L5-S1 IMPRESSION: 1. No acute abnormality. There is no obstruction, inflammation, or free air. No renal or ureteral dino culi are seen. There is no hydronephrosis. Signer Name: Juancarlos Kan MD Signed: 06/19/2020 1:20 PM Workstation Name: [id number]
== END 2020-06-19 13:44 | disposition home or self-care (01) ==
LOC: ED 22:04
DX: F19.10 Other psychoactive substance abuse, uncomplicated (principal); R10.9 Unspecified abdominal pain; R82.81 Pyuria; F25.9 Schizoaffective disorder, unspecified; E78.5 Hyperlipidemia, unspecified; F41.9 Anxiety disorder, unspecified; I10 Essential (primary) hypertension; F17.200 Nicotine dependence, unspecified, uncomplicated; Z20.822 Contact with and (suspected) exposure to COVID-19; Z90.49 Acquired absence of other specified parts of digestive tract; Z79.899 Other long term (current) drug therapy; Z86.73 Personal history of transient ischemic attack (TIA), and cerebral infarction without residual deficits
CPT/HCPCS: 36415; 74176; 80048; 80076; 80307; 81001; 85025; 87086; 96372; 99284; J0696; J3486; U0003; 80320; G0480

== ENCOUNTER 2020-09-06 16:46 | Emergency (ER) | payer OTHER ==
[2020-09-06] MEDS ORDERED: LORazepam 2 MG/ML VIAL ONE (16:49)
[2020-09-06] MEDS ORDERED: LORazepam 2 MG/ML VIAL IV ONE (16:49)
[2020-09-06] MEDS ORDERED: ZIPRASIDONE MESYLATE 20 MG VIAL IM ONE ×2 (16:50)
--- NOTE | 2020-09-06 17:16 | Emergency Department Report ---
ED Psych HPI - General Chief Complaint: Psych Stated Complaint: MH CRISIS Time Seen by Provider: 09/06/20 17:02 Source: patient, EMS Mode of arrival: Ambulatory - History of Present Illness Initial Comments: Patient is a 39 years old male with history of schizophrenia. Patient brought to the emergency room by [facility] for mental health evaluation. Patient found to be aggressive and having a bizarre behavior. Upon arrival to the ER patient was handcuffed by police. Patient with flight of ideas and word salad. Patient given Geodon 20 mg and put in seclusion for protection. Unable to obtain more information at this time. MD Complaint: altered mental status -: unknown Associated Psychiatric Symptoms: racing thoughts Quality: constant Treatments Prior to Arrival: placed on mental he, physical restraints - Related Data Home Medications Medication Instructions Recorded Confirmed Last Taken Metoprolol [Lopressor] 25 mg PO DAILY 07/08/19 09/07/20 2 Days Ago ~08/18/19 25 Previous Rx's Medication Instructions Recorded Last Taken Type Aspirin EC [Halfprin EC] 81 mg PO QDAY #30 tablet. 07/04/16 2 Days Ago Rx ~08/18/19 81 Sertraline [Zoloft] 50 mg PO QDAY #30 tablet 07/04/16 1 Day Ago Rx ~08/19/19 50 AtorvaSTATin [Lipitor] 40 mg PO QHS #30 tablet 12/01/16 2 Days Ago Rx ~08/18/19 40 Cyclobenzaprine [Flexeril] 10 mg PO Q8H PRN #15 tablet 07/20/19 2 Days Ago Rx ~08/18/19 Ibuprofen [Motrin] 800 mg PO Q8HR PRN #24 tablet 07/20/19 2 Days Ago Rx ~08/18/19 800 ARIPiprazole [Abilify TAB] 15 mg PO DAILY #30 tablet 03/06/20 Unknown Rx Sertraline [Zoloft] 50 mg PO DAILY #30 tablet 03/06/20 Unknown Rx DOXYCYCLINE Hyclate [Vibramycin] 100 mg PO Q12HR #14 capsule 06/19/20 Unknown Rx OLANzapine [ZyPREXA] 10 mg PO DAILY #30 tablet 09/08/20 Unknown Rx Sulfamethoxazole/Trimethoprim 1 each PO BID #10 tablet 09/08/20 Unknown Rx [Bactrim DS TAB] Valproic Acid [Depakene] 500 mg PO BID #60 capsule 09/08/20 Unknown Rx Allergies Allergy/AdvReac Type Severity Reaction Status Date / Time No Known Allergies Allergy Verified 06/09/15 00:02 ED Review of Systems ROS: Stated complaint: MH CRISIS Other details as noted in HPI Comment: All other systems reviewed and negative Constitutional: denies: chills, fever Respiratory: denies: cough, shortness of breath Cardiovascular: denies: chest pain, palpitations Gastrointestinal: denies: abdominal pain, nausea, vomiting Musculoskeletal: denies: back pain Neurological: denies: headache ED Past Medical Hx - Past Medical History Previous Medical History?: Yes Hx Hypertension: Yes Hx CVA: Yes Hx Congestive Heart Failure: No Hx Diabetes: No Hx Psychiatric Treatment: Yes Hx Asthma: No Hx COPD: No Additional medical history: schizophrenia, anxiety. Hyperlipidemia - Surgical History Past Surgical History?: Yes Hx Appendectomy: Yes - Social History Smoking Status: Current Every Day Smoker - Medications Home Medications: Home Medications Medication Instructions Recorded Confirmed Last Taken Type Aspirin EC [Halfprin EC] 81 mg PO QDAY #30 tablet. 07/04/16 09/07/20 2 Days Ago Rx ~08/18/19 81 Sertraline [Zoloft] 50 mg PO QDAY #30 tablet 07/04/16 09/07/20 1 Day Ago Rx ~08/19/19 50 AtorvaSTATin [Lipitor] 40 mg PO QHS #30 tablet 12/01/16 09/07/20 2 Days Ago Rx ~08/18/19 40 Metoprolol [Lopressor] 25 mg PO DAILY 07/08/19 09/07/20 2 Days Ago History ~08/18/19 25 Cyclobenzaprine [Flexeril] 10 mg PO Q8H PRN #15 tablet 07/20/19 09/07/20 2 Days Ago Rx ~08/18/19 Ibuprofen [Motrin] 800 mg PO Q8HR PRN #24 tablet 07/20/19 09/07/20 2 Days Ago Rx ~08/18/19 800 ARIPiprazole [Abilify TAB] 15 mg PO DAILY #30 tablet 03/06/20 09/07/20 Unknown Rx Sertraline [Zoloft] 50 mg PO DAILY #30 tablet 03/06/20 09/07/20 Unknown Rx DOXYCYCLINE Hyclate [Vibramycin] 100 mg PO Q12HR #14 capsule 06/19/20 09/07/20 Unknown Rx OLANzapine [ZyPREXA] 10 mg PO DAILY #30 tablet 09/08/20 Unknown Rx Sulfamethoxazole/Trimethoprim 1 each PO BID #10 tablet 09/08/20 Unknown Rx [Bactrim DS TAB] Valproic Acid [Depakene] 500 mg PO BID #60 capsule 09/08/20 Unknown Rx ED Physical Exam - General Limitations: Altered Mental Status General appearance: alert, in no apparent distress, other (agitated ) - Head Head exam: Present: atraumatic, normocephalic, normal inspection - Eye Eye exam: Present: normal appearance, PERRL - ENT ENT exam: Present: normal exam, normal orophraynx, mucous membranes moist - Neck Neck exam: Present: normal inspection, full ROM. Absent: tenderness, meningismus - Respiratory Respiratory exam: Present: normal lung sounds bilaterally - Cardiovascular Cardiovascular Exam: Present: regular rate, normal rhythm, normal heart sounds - GI/Abdominal GI/Abdominal exam: Present: soft, normal bowel sounds. Absent: distended, tenderness, guarding, rebound, rigid - Extremities Exam Extremities exam: Present: normal inspection, full ROM, normal capillary refill - Back Exam Back exam: Present: normal inspection, full ROM. Absent: CVA tenderness (R), CVA tenderness (L) - Neurological Exam Neurological exam: Present: alert, oriented X3, CN II-XII intact - Psychiatric Psychiatric exam: Present: agitated, manic - Skin Skin exam: Present: warm, intact, normal color ED Course Vital Signs 09/06/20 09/06/20 09/07/20 17:08 23:04 01:00 Temperature 97.9 F 98.6 F Pulse Rate 90 86 Respiratory 18 18 Rate Blood Pressure 145/97 123/80 [Right] O2 Sat by Pulse 98 99 100 Oximetry 09/07/20 09/07/20 09/07/20 10:08 16:00 20:09 Temperature 97.8 F 97.5 F L Pulse Rate 82 88 71 Respiratory 18 20 16 Rate Blood Pressure 116/93 144/117 120/67 [Right] O2 Sat by Pulse 100 98 100 Oximetry 09/08/20 09/08/20 09/08/20 01:56 08:00 10:00 Temperature 97.9 F 97.5 F L Pulse Rate 70 81 Respiratory 16 18 Rate Blood Pressure 122/88 137/83 [Right] O2 Sat by Pulse 99 100 98 Oximetry ED Medical Decision Making - Lab Data Result diagrams: 09/07/20 00:17 09/07/20 16:02 Critical care attestation.: If time is entered above; I have spent that time in minutes in the direct care of this critically ill patient, excluding procedure time. ED Disposition Clinical Impression: Drug-induced mood disorder, Psychosis, UTI (urinary tract infection) Disposition: DC-01 TO HOME OR SELFCARE Is pt being admited?: No Condition: Stable Instructions: Urinary Tract Infection, Adult, Psychosis Additional Instructions: Professional and Agency Contacts To help [facility] (02/09) [place] Crisis Line: Suicide Prevention Line: Crisis Text Line: Text START to [phone] Emergency: 911 Outpatient COMMUNITY Behavioral Health Resources: [facility]: [facility] [address] [place], [place] [address] [facility] [address] [place] [address] Friday thru Friday - 8am - 5pm Call to schedule an assessment for mental health and substance abuse programs [facility] Address: [address] [place] [address] Friday thru Friday- 7am-2pm [facility] Address: [address] [place] [address] Friday thru Friday: 8:30AM-5PM Prescriptions: Sulfamethoxazole/Trimethoprim [Bactrim DS TAB] 1 each PO BID #10 tablet Valproic Acid [Depakene] 500 mg PO BID #60 capsule OLANzapine [ZyPREXA] 10 mg PO DAILY #30 tablet Referrals: PRIMARY CARE, [Primary Care Provider] - 3-5 Days
[2020-09-07 00:45] LABS: Basophils % (Auto) 0.5 % (0.0-1.8); Eosinophils % (Auto) 0.1 % (0.0-4.3); Hematocrit 51.5 % (35.5-45.6); Hemoglobin 17.6 gm/dl (11.8-15.2); Lymphocytes # (Auto) 1.2 K/mm3 (1.2-5.4); Lymphocytes % (Auto) 14.2 % (13.4-35.0); Mean Corpuscular HGB Conc 34 % (32-34); Mean Corpuscular Volume 85 fl (84-94); Monocytes # (Auto) 0.6 K/mm3 (0.0-0.8); Monocytes % (Auto) 6.8 % (0.0-7.3); Platelet Count 203 K/mm3 (140-440); Red Blood Count 6.05 M/mm3 (3.65-5.03); Red Cell Distribution Width 13.6 % (13.2-15.2)
[2020-09-07 01:05] LABS: Alanine Aminotransferase 25 units/L (7-56); Albumin 5.2 g/dL (3.9-5); BUN/Creatinine Ratio 14; Bilirubin,Direct 0.2 mg/dL (0-0.2); Blood Urea Nitrogen 19 mg/dL (9-20); Calcium 10.4 mg/dL (8.4-10.2); Hemolysis Index 12
--- NOTE | 2020-09-07 10:30 | Consultation ---
History of Present Illness - Reason for Consult Consult date: 09/07/20 Reason for consult: psychosis - History of Present Psychiatric Illness ED Note: Patient is a 39 years old male with history of schizophrenia. Patient brought to the emergency room by [facility] for mental health evaluation. Patient found to be aggressive and having a bizarre behavior. Upon arrival to the ER patient was handcuffed by police. Patient with flight of ideas and word salad. Patient given Geodon 20 mg and put in seclusion for protection. Unable to obtain more information at this time. Wilbre Robb is a 39 year old male with a history of Schizophrenia, and Bipolar and multiple psychiatric inpatient admissions who presents to the ED for mental health evaluation due to aggressive and bizarre behavior. In my interview the patient, he reports that he has been using about four years now, he was mary ble to statesthe amount of drug he uses daily but states " as much as I can tolerate." He states having multiple detox admissions; the patient reports longest period of sobriety as when he was incarcerated for two years. He reports stressors as work and family. 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 Access to guns/weapons: denies Education: 12th grade History of Abuse: denies Legal History: denies REVIEW OF SYSTEMS Constitutional: Negative for weight loss ENT: Negative for stridor Respiratory: Negative for cough or hemoptysis All other systems reviewed and are negative MENTAL STATUS EXAMINATION General Appearance and Behavior: Age appropriate, wearing appropriate clothes, cooperative polite with questioning, good eye contact, cooperative Cooperation: cooperative Psychomotor Behavior: Psychomotor normal Mood: ok Affect and affective range: congruent with stated mood Thought Process: goal directed Thought Content: None Speech: Normal volume, Regular rate and rhythm Suicidal Ideation: Denies Homicidal Ideation: Denies hallucination: Yes - Auditory/Visual Delusions: None elicited Impulse Control: Questionable Insight and Judgment: Poor Memory: Intact Attention: Divided Orientation: Alert and oriented Diagnoses: 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 Thanks Case staffed with Dr. Mims. Medications and Allergies Medications and Allergies Allergies Allergy/AdvReac Type Severity Reaction Status Date / Time No Known Allergies Allergy Verified 06/09/15 00:02 Home Medications Medication Instructions Recorded Confirmed Last Taken Type Aspirin EC [Halfprin EC] 81 mg PO QDAY #30 tablet. 07/04/16 03/03/20 2 Days Ago Rx ~08/18/19 81 Sertraline [Zoloft] 50 mg PO QDAY #30 tablet 07/04/16 03/03/20 1 Day Ago Rx ~08/19/19 50 AtorvaSTATin [Lipitor] 40 mg PO QHS #30 tablet 12/01/16 03/03/20 2 Days Ago Rx ~08/18/19 40 Metoprolol [Lopressor] 25 mg PO DAILY 07/08/19 03/03/20 2 Days Ago History ~08/18/19 25 Cyclobenzaprine [Flexeril] 10 mg PO Q8H PRN #15 tablet 07/20/19 03/03/20 2 Days Ago Rx ~08/18/19 Ibuprofen [Motrin] 800 mg PO Q8HR PRN #24 tablet 07/20/19 03/03/20 2 Days Ago Rx ~08/18/19 800 ARIPiprazole [Abilify TAB] 15 mg PO DAILY #30 tablet 03/06/20 Unknown Rx Sertraline [Zoloft] 50 mg PO DAILY #30 tablet 03/06/20 Unknown Rx Valproic Acid [Depakene] 500 mg PO BID #60 capsule 03/06/20 Unknown Rx DOXYCYCLINE Hyclate [Vibramycin] 100 mg PO Q12HR #14 capsule 06/19/20 Unknown Rx Mental Status Exam - Vital signs Last Vital Signs Temp 97.8 F 09/07/20 10:08 Pulse 82 09/07/20 10:08 Resp 18 09/07/20 10:08 BP 116/93 09/07/20 10:08 Pulse Ox 100 09/07/20 10:08 Results Result Diagrams: 09/07/20 00:17 09/07/20 00:17 Abnormal lab results 09/07/20 09/07/20 09/07/20 Range/Units 00:17 00:17 00:17 RBC 6.05 H (3.65-5.03) M/mm3 Hgb 17.6 H (11.8-15.2) gm/dl Hct 51.5 H (35.5-45.6) % Seg Neutrophils % 78.4 H (40.0-70.0) % Creatinine 1.4 H (0.8-1.3) mg/dL Glucose 62 L (75-100) mg/dL Calcium 10.4 H (8.4-10.2) mg/dL Albumin 5.2 H (3.9-5) g/dL Salicylates < 0.3 L (2.8-20.0) mg/dL Acetaminophen (10.0-30.0) ug/mL 09/07/20 Range/Units 00:17 RBC (3.65-5.03) M/mm3 Hgb (11.8-15.2) gm/dl Hct (35.5-45.6) % Seg Neutrophils % (40.0-70.0) % Creatinine (0.8-1.3) mg/dL Glucose (75-100) mg/dL Calcium (8.4-10.2) mg/dL Albumin (3.9-5) g/dL Salicylates (2.8-20.0) mg/dL Acetaminophen 5.0 L (10.0-30.0) ug/mL All other labs normal.
--- NOTE | 2020-09-07 10:31 | Event Note ---
Date: 09/07/20 This patient was brought in yesterday for mental health evaluation. He was brought in by PD secondary to some bizarre behavior and required some Geodon for his agitation. Currently the patient is seen sitting in bed #12 and resting comfortably. Vital signs have been reassuring including being afebrile. Labs thus far have been unremarkable including CBC, metabolic panel, blood alcohol level. His blood sugar was low normal but the patient has been seen eating since this time and an Accu-Chek will be to be done. We are still waiting for a urine sample for urinalysis and UDS. I believe the patient has been seen by the psychiatric team but their note has not yet been placed in the chart. I will work with the psychiatric team and the emergency department psychiatric nurse to try and reconcile medications. We will continue to monitor this patient during his ED course. Vital Signs - 24 hr 09/06/20 09/06/20 09/07/20 17:08 23:04 01:00 Temperature 97.9 F 98.6 F Pulse Rate 90 86 Respiratory 18 18 Rate Blood Pressure 145/97 123/80 [Right] O2 Sat by Pulse 98 99 100 Oximetry 09/07/20 10:08 Temperature 97.8 F Pulse Rate 82 Respiratory 18 Rate Blood Pressure 116/93 [Right] O2 Sat by Pulse 100 Oximetry
[2020-09-07 16:38] LABS: Alanine Aminotransferase 28 units/L (7-56); Albumin 5.1 g/dL (3.9-5); BUN/Creatinine Ratio 17; Blood Urea Nitrogen 22 mg/dL (9-20); Calcium 10.4 mg/dL (8.4-10.2); Hemolysis Index 40
--- NOTE | 2020-09-07 16:40 | XRay Report ---
CHEST 2 VIEWS INDICATION / CLINICAL INFORMATION: CP. COMPARISON: 07/07/19. FINDINGS: SUPPORT DEVICES: None. HEART / MEDIASTINUM: The heart size and pulmonary vasculature are normal. The aorta is normal in y[place] sylvie.. LUNGS / PLEURA: No significant pulmonary or pleural abnormality. No pneumothorax. ADDITIONAL FINDINGS: No significant additional findings. IMPRESSION: No acute abnormality or significant change. Signer Name: Dhiraj Stewart MD Signed: 09/07/2020 4:35 PM Workstation Name: [id number]
[2020-09-07 17:24] LABS: Bilirubin,Urine NEG (Negative); Blood,Urine NEG (Negative); Color,Urine Amber (Yellow); Mucus,Urine 3+ /HPF
[2020-09-07 17:31] LABS: Amphetamine Screen,Urine Negative; Benzodiazepines Screen,Urine Negative; Cannabinoid Screen,Urine Negative; Cocaine Screen,Urine Negative; Methadone Screen,Urine Negative; Opiate Screen,Urine Negative
[2020-09-07] MEDS ORDERED: ALPRAZolam 0.5 MG TAB PO ONE (17:58)
[2020-09-08] MEDS: VALPROIC ACID 250 MG CAP PO SCH ×2 (03:00→10:13)
[2020-09-08 09:07] VITALS: BP 137/83
[2020-09-08] MEDS ORDERED: METOPROLOL TARTRATE 25 MG TAB PO SCH (10:00)
--- NOTE | 2020-09-08 10:18 | Progress Note ---
Subjective - Reason for Consult Consult date: 09/08/20 Reason for consult: drug use, voices - Chief Complaint Chief complaint: The patient was seen today. He is a/o x 3. He says he got caught with a gun and almost got killed by the police. The patient says he had been doing drugs. He says he thought somebody was after him. He says "my told me I can't come back if I don't get any help." The patient denies SI/HI or hallucinations of any kind. The patient says "I don't want to go to [facility]. That place don't treat people right." He says "that's the only place ya ever send me to. I'm not going there." Spoke with the support worker at bedside who states that [facility] is the place that always excepts the patient. Advised the patient that he needs rehab and the ER is no place to come for that. The patient says he wants rehab but doesn't want to go to [facility]. The patient and I had a long conversation about his drug use. He says he's been on drugs for years. He verbalizes methamphetamine use and states he has people blowing up his phone. I also spoke with this patient's spouse in debt about his need for drug rehab, CBT and med management. She says she doesn't know how to help the patient and that he's really a good person. The patient states to me "I'm still high. Can you ask her to come and get me. I'm not going to [facility]." REVIEW OF SYSTEMS Constitutional: Negative for weight loss ENT: Negative for stridor Respiratory: Negative for cough or hemoptysis All other systems reviewed and are negative MENTAL STATUS EXAMINATION General Appearance and Behavior: Age appropriate, wearing appropriate clothes, cooperative polite with questioning, good eye contact, cooperative Cooperation: cooperative Psychomotor Behavior: Psychomotor normal Mood: ok Affect and affective range: congruent with stated mood Thought Process: goal directed Thought Content: None Speech: Normal volume, Regular rate and rhythm Suicidal Ideation: Denies Homicidal Ideation: Denies hallucination: Denies Delusions: None elicited Impulse Control: Questionable Insight and Judgment: Poor Memory: Intact Attention: Divided Orientation: Alert and oriented Diagnoses: 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 The patient understands that if any SI/HI or fear of endangerment occur he is to seek immediate assistance. The patient is to abstain from all illicit drug use He is to follow up with outpatient psych in 7 to 14 days upon discharge The support worker to give the patient all necessary outpatient resources Will sign off. Thanks Case staffed with Dr. Mims. Mental Status Exam - Vital signs Last Vital Signs Temp 97.5 F L 09/08/20 08:00 Pulse 81 09/08/20 08:00 Resp 18 09/08/20 08:00 BP 137/83 09/08/20 08:00 Pulse Ox 100 09/08/20 08:00
--- NOTE | 2020-09-08 10:29 | Emergency Department Report ---
Blank Doc - Documentation Documentation: This patient presented to the emergency department 2 days ago, on 09/06, with a cute psychosis and was placed on an ED hold and 1013. The patient was seen again today by the psychiatric team who still recommend inpatient stabilization. I saw the patient multiple times yesterday for a general reevaluation, and later when the patient had complained of some generalized chest pain. At that time he had a negative troponin, normal EKG, and a chest x-ray that did not show any acute process. His chest pain had resolved within 1 hour and has not returned since. I believe it was secondary to some agitation that he was experiencing at that time. Today, the patient is calm and appropriate, AAO x3. He admits that some of his issues are related to illicit drug use. I spoke to the psychiatric emergency department nurse, Brandy, who says that there have been no events overnight or signed out to her this morning. No new labs. Vital signs have been reassuring including being afebrile. No new medications for reconciliation. We will continue to monitor this patient during his ED course. Vital Signs - 24 hr 09/07/20 09/07/20 09/08/20 16:00 20:09 01:56 Temperature 97.5 F L 97.9 F Pulse Rate 88 71 70 Respiratory 20 16 16 Rate Blood Pressure 144/117 120/67 122/88 [Right] O2 Sat by Pulse 98 100 99 Oximetry 09/08/20 08:00 Temperature 97.5 F L Pulse Rate 81 Respiratory 18 Rate Blood Pressure 137/83 [Right] O2 Sat by Pulse 100 Oximetry
[2020-09-08] MEDS ORDERED: SULFAMETHOXAZOLE/TRIMETHOPRIM 800/160MG DS TAB PO SCH (12:00)
--- NOTE | 2020-09-08 17:52 | Electrocardiograph Report ---
[facility] Test Date: 2020-09-07 Test Time: 17:19:04 Pat Name: ELLA KOROMA Department: Room: Gender: M Side Panel Padder: ERNESTO GONZALESB: 1980 Requested By: YAZMIN KEENE Order Number: [id number] Reading MD: Avery Lopez Measurements Intervals [place] Rate: 98 P: 75 DE: 134 QRS: 28 QRSD: 74 T: 13 QT: 363 QTc: 464 Interpretive Statements Sinus rhythm Probable left atrial enlargement ST elev, probable normal early repol pattern No previous ECG available for comparison Electronically Signed On 09-08-2020 17:52:05 EDT by Avery Lopez
== END 2020-09-08 12:00 | disposition home or self-care (01) ==
LOC: ED 16:46 → EEVIPCON 16:46 → ED 09-08 12:00
DX: F23 Brief psychotic disorder (principal); F19.14 Other psychoactive substance abuse with psychoactive substance-induced mood disorder; I10 Essential (primary) hypertension; Z86.73 Personal history of transient ischemic attack (TIA), and cerebral infarction without residual deficits; F20.9 Schizophrenia, unspecified; E78.5 Hyperlipidemia, unspecified; F17.200 Nicotine dependence, unspecified, uncomplicated; Z11.59 Encounter for screening for other viral diseases
CPT/HCPCS: 36415; 71046; 80048; 80053; 80076; 80307; 81001; 84484; 85025; 87086; 93005; 96372; 96374; 99285; A9270; J2060; J3486; U0003; 80320; G0480

== ENCOUNTER 2021-05-02 07:28 | Emergency (ER) | payer SELFPAY ==
[2021-05-02] MEDS ORDERED: ZIPRASIDONE MESYLATE 20 MG VIAL IM STA (08:05)
--- NOTE | 2021-05-02 08:10 | Emergency Department Report ---
ED Psych HPI - General Chief Complaint: Psych Stated Complaint: PARANOID SCHYSO EPISODE Time Seen by Provider: 05/02/21 08:04 Source: patient Mode of arrival: Ambulatory Limitations: No Limitations - History of Present Illness Initial Comments: CC: "I have been off my meds." HPI: This is a 40 yo male witih hx of bipolar disorder, schizophrenia, amphem tamine abuse, HTN, HLD who presents with hallucinations and paranoia for several days. He is extremely anxious. Denies physical complaints. Denies SI/HI. MD Complaint: other (paranoia, anxiety, auditory hallucinations) -: Gradual, days(s) (several days) Associated Psychiatric Symptoms: racing thoughts, auditory hallucinations History of same: Yes Quality: constant Improves With: none Worsens With: none Context: recent drug abuse, not taking psychiatric Associated Symptoms: denies other symptoms Treatments Prior to Arrival: none - Related Data Home Medications Medication Instructions Recorded Confirmed Last Taken Metoprolol [Lopressor] 25 mg PO DAILY 07/08/19 09/07/20 2 Days Ago ~08/18/19 25 Previous Rx's Medication Instructions Recorded Last Taken Type Aspirin EC [Halfprin EC] 81 mg PO QDAY #30 tablet. 07/04/16 2 Days Ago Rx ~08/18/19 81 Sertraline [Zoloft] 50 mg PO QDAY #30 tablet 07/04/16 1 Day Ago Rx ~08/19/19 50 AtorvaSTATin [Lipitor] 40 mg PO QHS #30 tablet 12/01/16 2 Days Ago Rx ~08/18/19 40 Cyclobenzaprine [Flexeril] 10 mg PO Q8H PRN #15 tablet 07/20/19 2 Days Ago Rx ~08/18/19 Ibuprofen [Motrin] 800 mg PO Q8HR PRN #24 tablet 07/20/19 2 Days Ago Rx ~08/18/19 800 ARIPiprazole [Abilify TAB] 15 mg PO DAILY #30 tablet 03/06/20 Unknown Rx Sertraline [Zoloft] 50 mg PO DAILY #30 tablet 03/06/20 Unknown Rx DOXYCYCLINE Hyclate [Vibramycin] 100 mg PO Q12HR #14 capsule 06/19/20 Unknown Rx OLANzapine [ZyPREXA] 10 mg PO DAILY #30 tablet 09/08/20 Unknown Rx Sulfamethoxazole/Trimethoprim 1 each PO BID #10 tablet 09/08/20 Unknown Rx [Bactrim DS TAB] Valproic Acid [Depakene] 500 mg PO BID #60 capsule 09/08/20 Unknown Rx Allergies Allergy/AdvReac Type Severity Reaction Status Date / Time No Known Allergies Allergy Verified 06/09/15 00:02 ED Review of Systems ROS: Stated complaint: PARANOID SCHYSO EPISODE Other details as noted in HPI Comment: All other systems reviewed and negative Constitutional: denies: chills, fever, malaise Respiratory: denies: cough, shortness of breath Cardiovascular: denies: chest pain Gastrointestinal: denies: abdominal pain, nausea, vomiting Neurological: denies: headache, weakness Psychiatric: depression, auditory hallucinations. denies: visual hallucinations, homicidal thoughts, suicidal thoughts ED Past Medical Hx - Past Medical History Previous Medical History?: Yes Hx Hypertension: Yes Hx CVA: Yes Hx Congestive Heart Failure: No Hx Diabetes: No Hx Psychiatric Treatment: Yes Hx Asthma: No Hx COPD: No Additional medical history: schizophrenia, anxiety. Hyperlipidemia - Surgical History Past Surgical History?: Yes Hx Appendectomy: Yes - Social History Smoking Status: Current Every Day Smoker Substance Use Type: Marijuana, Methamphetamines - Medications Home Medications: Home Medications Medication Instructions Recorded Confirmed Last Taken Type Aspirin EC [Halfprin EC] 81 mg PO QDAY #30 tablet. 07/04/16 09/07/20 2 Days Ago Rx ~08/18/19 81 Sertraline [Zoloft] 50 mg PO QDAY #30 tablet 07/04/16 09/07/20 1 Day Ago Rx ~08/19/19 50 AtorvaSTATin [Lipitor] 40 mg PO QHS #30 tablet 12/01/16 09/07/20 2 Days Ago Rx ~08/18/19 40 Metoprolol [Lopressor] 25 mg PO DAILY 07/08/19 09/07/20 2 Days Ago History ~08/18/19 25 Cyclobenzaprine [Flexeril] 10 mg PO Q8H PRN #15 tablet 07/20/19 09/07/20 2 Days Ago Rx ~08/18/19 Ibuprofen [Motrin] 800 mg PO Q8HR PRN #24 tablet 07/20/19 09/07/20 2 Days Ago Rx ~08/18/19 800 ARIPiprazole [Abilify TAB] 15 mg PO DAILY #30 tablet 03/06/20 09/07/20 Unknown Rx Sertraline [Zoloft] 50 mg PO DAILY #30 tablet 03/06/20 09/07/20 Unknown Rx DOXYCYCLINE Hyclate [Vibramycin] 100 mg PO Q12HR #14 capsule 06/19/20 09/07/20 Unknown Rx OLANzapine [ZyPREXA] 10 mg PO DAILY #30 tablet 09/08/20 Unknown Rx Sulfamethoxazole/Trimethoprim 1 each PO BID #10 tablet 09/08/20 Unknown Rx [Bactrim DS TAB] Valproic Acid [Depakene] 500 mg PO BID #60 capsule 09/08/20 Unknown Rx ED Physical Exam - General Limitations: No Limitations General appearance: alert, in no apparent distress, anxious - Head Head exam: Present: atraumatic, normocephalic - Eye Eye exam: Present: normal appearance - ENT ENT exam: Present: mucous membranes moist - Neck Neck exam: Present: normal inspection, full ROM - Respiratory Respiratory exam: Present: normal lung sounds bilaterally. Absent: respiratory distress, wheezes, rales, stridor - Cardiovascular Cardiovascular Exam: Present: normal rhythm, tachycardia, normal heart sounds. Absent: systolic murmur, diastolic murmur, rubs, gallop - GI/Abdominal GI/Abdominal exam: Present: soft, normal bowel sounds. Absent: distended, tenderness, guarding, rebound - Rectal Rectal exam: Present: deferred - Extremities Exam Extremities exam: Present: normal inspection - Neurological Exam Neurological exam: Present: alert, oriented X3 - Psychiatric Psychiatric exam: Present: normal affect, normal mood - Skin Skin exam: Present: warm, dry, intact, normal color. Absent: rash ED Course Vital Signs 05/02/21 05/02/21 07:56 10:15 Temperature 98.2 F Pulse Rate 135 H Respiratory 16 Rate Blood Pressure 160/117 [Left] O2 Sat by Pulse 98 99 Oximetry ED Medical Decision Making - Lab Data Result diagrams: 05/02/21 08:18 05/02/21 08:18 - Medical Decision Making Drug-induced psychosis with noted paranoia, restlenssness and tachycardia. IM geodon ordered for sedation and comfort. Mr. Robb is medically clear for psychiatric care. I have reviewed labs. CBC chemistry serum toxicology screen unremarkable. Covid PCR test negative. Patient is medically clear for psychiatric care Critical care attestation.: If time is entered above; I have spent that time in minutes in the direct care of this critically ill patient, excluding procedure time. ED Disposition Clinical Impression: Methamphetamine dependence, Acute psychosis, Schizophrenia Disposition: 30 STILL A PATIENT Is pt being admited?: No Does the pt Need Aspirin: No Condition: Stable
[2021-05-02 08:43] LABS: Basophils % (Auto) 0.6 % (0.0-1.8); Eosinophils # (Auto) 0.2 K/mm3 (0.0-0.4); Eosinophils % (Auto) 2.2 % (0.0-4.3); Hematocrit 47.3 % (35.5-45.6); Hemoglobin 16.6 gm/dl (11.8-15.2); Lymphocytes # (Auto) 1.6 K/mm3 (1.2-5.4); Lymphocytes % (Auto) 19.2 % (13.4-35.0); Mean Corpuscular HGB Conc 35 % (32-34); Mean Corpuscular Volume 84 fl (84-94); Monocytes # (Auto) 0.4 K/mm3 (0.0-0.8); Monocytes % (Auto) 4.8 % (0.0-7.3); Platelet Count 219 K/mm3 (140-440); Red Blood Count 5.64 M/mm3 (3.65-5.03); Red Cell Distribution Width 13.5 % (13.2-15.2)
[2021-05-02 09:03] LABS: BUN/Creatinine Ratio 13; Blood Urea Nitrogen 17 mg/dL (9-20); Calcium 10.5 mg/dL (8.4-10.2); Hemolysis Index 13
[2021-05-02] MEDS ORDERED: amLODIPine 5 MG TAB PO SCH (11:00)
--- NOTE | 2021-05-02 11:51 | Consultation ---
History of Present Illness - Reason for Consult Consult date: 05/02/21 Reason for consult: Psychosis - History of Present Psychiatric Illness ED Note: This is a 40 yo male witih hx of bipolar disorder, schizophrenia, amphemtamine abuse, HTN, HLD who presents with hallucinations and paranoia for several days. He is extremely anxious. Denies physical complaints. Denies SI/HI. The patient was seen this morning. The patient is drowsy and unable to participate in assessment. PAST PSYCHIATRIC HISTORY: PAST MEDICAL HISTORY: None reported or document Family Psychiatric History: None reported or documented SOCIAL HISTORY REVIEW OF SYSTEMS MENTAL STATUS EXAMINATION Diagnoses: Schizophrenia Treatment Plan 1013 Zyprexa 5mg po BID PSYCHOTHERAPY: Supportive psychotherapy provided MEDICAL: Per primary team DELIRIUM PRECAUTIONS: Please re-orient patient frequently, keep lights on during the day, and minimize benzodiazepines and opiates as these medications could worsen patient's confusion. 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 Will follow Thank you for the consult. Please contact with any questions and/or concerns. Case staffed with Dr. Mims Medications and Allergies Medications and Allergies Allergies Allergy/AdvReac Type Severity Reaction Status Date / Time No Known Allergies Allergy Verified 06/09/15 00:02 Home Medications Medication Instructions Recorded Confirmed Last Taken Type Aspirin EC [Halfprin EC] 81 mg PO QDAY #30 tablet. 07/04/16 09/07/20 2 Days Ago Rx ~08/18/19 81 Sertraline [Zoloft] 50 mg PO QDAY #30 tablet 07/04/16 09/07/20 1 Day Ago Rx ~08/19/19 50 AtorvaSTATin [Lipitor] 40 mg PO QHS #30 tablet 12/01/16 09/07/20 2 Days Ago Rx ~08/18/19 40 Metoprolol [Lopressor] 25 mg PO DAILY 07/08/19 09/07/20 2 Days Ago History ~08/18/19 25 Cyclobenzaprine [Flexeril] 10 mg PO Q8H PRN #15 tablet 07/20/19 09/07/20 2 Days Ago Rx ~08/18/19 Ibuprofen [Motrin] 800 mg PO Q8HR PRN #24 tablet 07/20/19 09/07/20 2 Days Ago Rx ~08/18/19 800 ARIPiprazole [Abilify TAB] 15 mg PO DAILY #30 tablet 03/06/20 09/07/20 Unknown Rx Sertraline [Zoloft] 50 mg PO DAILY #30 tablet 03/06/20 09/07/20 Unknown Rx DOXYCYCLINE Hyclate [Vibramycin] 100 mg PO Q12HR #14 capsule 06/19/20 09/07/20 Unknown Rx OLANzapine [ZyPREXA] 10 mg PO DAILY #30 tablet 09/08/20 Unknown Rx Sulfamethoxazole/Trimethoprim 1 each PO BID #10 tablet 09/08/20 Unknown Rx [Bactrim DS TAB] Valproic Acid [Depakene] 500 mg PO BID #60 capsule 09/08/20 Unknown Rx Active Meds: Active Medications Amlodipine Besylate (Amlodipine 10 Mg Tab) 10 mg PO DAILY RONIT Mental Status Exam - Vital signs Last Vital Signs Temp 98.2 F 05/02/21 07:56 Pulse 135 H 05/02/21 07:56 Resp 16 05/02/21 07:56 BP 160/117 05/02/21 07:56 Pulse Ox 99 05/02/21 10:15 Results Result Diagrams: 05/02/21 08:18 05/02/21 08:18 Abnormal lab results 05/02/21 05/02/21 05/02/21 Range/Units 08:18 08:18 08:18 RBC (3.65-5.03) M/mm3 Hgb (11.8-15.2) gm/dl Hct (35.5-45.6) % MCHC (32-34) % Seg Neutrophils % (40.0-70.0) % Glucose 117 H (75-100) mg/dL Calcium 10.5 H (8.4-10.2) mg/dL Salicylates < 0.3 L (2.8-20.0) mg/dL Acetaminophen 5.0 L (10.0-30.0) ug/mL 05/02/21 Range/Units 08:18 RBC 5.64 H (3.65-5.03) M/mm3 Hgb 16.6 H (11.8-15.2) gm/dl Hct 47.3 H (35.5-45.6) % MCHC 35 H (32-34) % Seg Neutrophils % 73.2 H (40.0-70.0) % Glucose (75-100) mg/dL Calcium (8.4-10.2) mg/dL Salicylates (2.8-20.0) mg/dL Acetaminophen (10.0-30.0) ug/mL All other labs normal.
[2021-05-02] MEDS ORDERED: ZIPRASIDONE MESYLATE 20 MG VIAL IM PRN (13:00)
[2021-05-02] MEDS: amLODIPine 10 MG TAB PO SCH (16:40)
[2021-05-02 16:48] LABS: Benzodiazepines Screen,Urine Negative; Methadone Screen,Urine Negative; Opiate Screen,Urine Negative
[2021-05-02 16:49] LABS: Color,Urine Amber (Yellow); Hyaline Casts,Urine 4 /LPF; Mucus,Urine 3+ /HPF
[2021-05-02 16:54] LABS: Bilirubin,Urine Negative (Negative); Blood,Urine Negative (Negative)
[2021-05-02 17:12] LABS: Amphetamine Screen,Urine Positive; Cannabinoid Screen,Urine Positive; Cocaine Screen,Urine Positive
[2021-05-03] MEDS ORDERED: ZIPRASIDONE 20 MG CAP ONE (00:24)
--- NOTE | 2021-05-03 07:42 | Progress Note ---
Subjective - Reason for Consult Consult date: 05/03/21 Reason for consult: sucidal ideation - Chief Complaint Chief complaint: The patient was seen this morning. He reports feeling restless, pacing and difficulty sleeping " I have been awake through the night, I can not sleep." The patient admits to using " occasional" meth use for the past 2 years. He reports having suicidal ideation with no plan. He endorses auditory and visual hallucinations " hearing whispers." PAST PSYCHIATRIC HISTORY Diagnoses: Bipolar, Schizophrenia, Polysubstance abuse Suicide attempts or Self-harm behavior: Yes Prior psychiatric hospitalizations: yes Substance Abuse history: Alcohol, meth, Cocaine, marijuana Previous psychiatric medications tried: Zoloft Outpatient treatment: [facility] SOCIAL HISTORY Marital Status: Living Arrangements: Family Employment Status: Employed Access to guns/weapons: Denies Education: 12th grade History of abuse: Drug abuse in the past, alcohol Legal History: Denies ROS Constitutional: Negative for weight loss EMT: Negative for stridor Respiratory: Negative for cough or hemoptysis All other systems reviewed and are negative MENTAL STATUS EXAMINATION General Appearance: Dressed appropriately. Behavior: Calm and cooperative. Good eye contact. Mood: Depressed Affect:Congruent to stated mood Speech: Normal tone and pace Thought Process: Goal oriented Suicidal Ideation: Yes Homicidal Ideation: Denies Hallucinations: Auditory/visual Delusions: None elicited Insight and Judgment: Limited Memory/Cognition: Limited Assessment and Plan (1)Bipolar Disorder (2)Methamphetamine Dependence with induced Mood disorder 1013 Treatment Plan Continue home medications as previously prescribed. Risks, benefits and alternatives of medications discussed with the patient, questions answered and consent obtained from patient. PSYCHOTHERAPY: Supportive psychotherapy provided MEDICAL: Per primary team DELIRIUM PRECAUTIONS: Please re-orient patient frequently, keep lights on during the day, and minimize benzodiazepines and opiates as these medications could worsen patient's confusion. 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 Will follow. Thank you for the consult. Please contact with any questions and/or concerns. Case discussed with Dr. Mims who agrees with current disposition Medications and Allergies Mental Status Exam - Vital signs Last Vital Signs Temp 98.7 F 05/02/21 20:10 Pulse 100 H 05/02/21 20:10 Resp 18 05/02/21 20:10 BP 148/100 05/02/21 20:10 Pulse Ox 98 05/02/21 20:10
[2021-05-03 10:29] VITALS: BP 153/99
[2021-05-03] MEDS: amLODIPine 10 MG TAB PO SCH (10:51)
--- NOTE | 2021-05-03 12:39 | Event Note ---
Date: 05/03/21 Patient is 40 years old male with history of bipolar. Patient admitted to the ER for mental health evaluation. Patient found to be intoxicated with methamphetamine. Patient is restless and pacing around. Vital signs stable. Labs reviewed and showed UTI. I will start patient on ciprofloxacin 500 mg twice a day. Patient has been evaluated by mental health and recommended inpatient psychiatric admission.
[2021-05-03] MEDS ORDERED: ZIPRASIDONE MESYLATE 20 MG VIAL IM ONE (12:46)
[2021-05-03] MEDS ORDERED: levoFLOXacin 500 MG TAB PO SCH (13:00)
== END 2021-05-03 18:34 ==
LOC: EEVIPCON 07:28 → ED 07:28
DX: F23 Brief psychotic disorder (principal); F15.20 Other stimulant dependence, uncomplicated; I10 Essential (primary) hypertension; Z86.73 Personal history of transient ischemic attack (TIA), and cerebral infarction without residual deficits; Z98.890 Other specified postprocedural states; F17.200 Nicotine dependence, unspecified, uncomplicated; Z20.822 Contact with and (suspected) exposure to COVID-19
CPT/HCPCS: 36415; 80048; 80307; 81001; 85025; 87086; 96372; 99285; J3486; U0003; 80320; G0480

== ENCOUNTER 2021-06-07 02:46 | Emergency (ER) | payer SELFPAY ==
[2021-06-07] MEDS ORDERED: ALPRAZolam 0.5 MG TAB PO PRN (03:04)
[2021-06-07] MEDS ORDERED: LORazepam 2 MG/ML VIAL IM PRN (03:04)
[2021-06-07] MEDS ORDERED: HALOPERIDOL LACTATE 5 MG/1 ML INJ IM PRN (03:04)
--- NOTE | 2021-06-07 03:06 | Emergency Department Report ---
ED General Adult HPI - General Chief complaint: Psych Stated complaint: HALLUCINATIONS Time Seen by Provider: 06/07/21 02:59 Source: patient, EMS ( EMS documentation not available at time of chart dictation ), RN notes reviewed, old records reviewed Mode of arrival: Ambulatory Limitations: No Limitations - History of Present Illness Initial comments: The patient is a pleasant and cooperative 40-year-old gentleman, presenting to the ER with a complaint of hallucinations and resolved suicidality. He is not taking his medications. He denies physical pain. He denies overdose. He reports family called 911 -: Sudden Consistency: constant Improves with: none Worsens with: none Associated Symptoms: denies other symptoms - Related Data Home Medications Medication Instructions Recorded Confirmed Last Taken Metoprolol [Lopressor] 25 mg PO DAILY 07/08/19 09/07/20 2 Days Ago ~08/18/19 25 Previous Rx's Medication Instructions Recorded Last Taken Type Aspirin EC [Halfprin EC] 81 mg PO QDAY #30 tablet. 07/04/16 2 Days Ago Rx ~08/18/19 81 Sertraline [Zoloft] 50 mg PO QDAY #30 tablet 07/04/16 1 Day Ago Rx ~08/19/19 50 AtorvaSTATin [Lipitor] 40 mg PO QHS #30 tablet 12/01/16 2 Days Ago Rx ~08/18/19 40 Cyclobenzaprine [Flexeril] 10 mg PO Q8H PRN #15 tablet 07/20/19 2 Days Ago Rx ~08/18/19 Ibuprofen [Motrin] 800 mg PO Q8HR PRN #24 tablet 07/20/19 2 Days Ago Rx ~08/18/19 800 ARIPiprazole [Abilify TAB] 15 mg PO DAILY #30 tablet 03/06/20 Unknown Rx Sertraline [Zoloft] 50 mg PO DAILY #30 tablet 03/06/20 Unknown Rx DOXYCYCLINE Hyclate [Vibramycin] 100 mg PO Q12HR #14 capsule 06/19/20 Unknown Rx OLANzapine [ZyPREXA] 10 mg PO DAILY #30 tablet 09/08/20 Unknown Rx Sulfamethoxazole/Trimethoprim 1 each PO BID #10 tablet 09/08/20 Unknown Rx [Bactrim DS TAB] Valproic Acid [Depakene] 500 mg PO BID #60 capsule 09/08/20 Unknown Rx Allergies Allergy/AdvReac Type Severity Reaction Status Date / Time No Known Allergies Allergy Verified 06/09/15 00:02 ED Review of Systems ROS: Stated complaint: HALLUCINATIONS Other details as noted in HPI Comment: All other systems reviewed and negative Psychiatric: auditory hallucinations, visual hallucinations, homicidal thoughts, suicidal thoughts ED Past Medical Hx - Past Medical History Previous Medical History?: Yes Hx Hypertension: Yes Hx CVA: Yes Hx Congestive Heart Failure: No Hx Diabetes: No Hx Psychiatric Treatment: Yes Hx Asthma: No Hx COPD: No Additional medical history: schizophrenia, anxiety. Hyperlipidemia - Surgical History Past Surgical History?: Yes Hx Appendectomy: Yes - Social History Smoking Status: Unknown if ever smoked - Medications Home Medications: Home Medications Medication Instructions Recorded Confirmed Last Taken Type Aspirin EC [Halfprin EC] 81 mg PO QDAY #30 tablet. 07/04/16 09/07/20 2 Days Ago Rx ~08/18/19 81 Sertraline [Zoloft] 50 mg PO QDAY #30 tablet 07/04/16 09/07/20 1 Day Ago Rx ~08/19/19 50 AtorvaSTATin [Lipitor] 40 mg PO QHS #30 tablet 12/01/16 09/07/20 2 Days Ago Rx ~08/18/19 40 Metoprolol [Lopressor] 25 mg PO DAILY 07/08/19 09/07/20 2 Days Ago History ~08/18/19 25 Cyclobenzaprine [Flexeril] 10 mg PO Q8H PRN #15 tablet 07/20/19 09/07/20 2 Days Ago Rx ~08/18/19 Ibuprofen [Motrin] 800 mg PO Q8HR PRN #24 tablet 07/20/19 09/07/20 2 Days Ago Rx ~08/18/19 800 ARIPiprazole [Abilify TAB] 15 mg PO DAILY #30 tablet 03/06/20 09/07/20 Unknown Rx Sertraline [Zoloft] 50 mg PO DAILY #30 tablet 03/06/20 09/07/20 Unknown Rx DOXYCYCLINE Hyclate [Vibramycin] 100 mg PO Q12HR #14 capsule 06/19/20 09/07/20 Unknown Rx OLANzapine [ZyPREXA] 10 mg PO DAILY #30 tablet 09/08/20 Unknown Rx Sulfamethoxazole/Trimethoprim 1 each PO BID #10 tablet 09/08/20 Unknown Rx [Bactrim DS TAB] Valproic Acid [Depakene] 500 mg PO BID #60 capsule 09/08/20 Unknown Rx ED Physical Exam - General Limitations: No Limitations General appearance: alert, in no apparent distress, obese - Head Head exam: Present: atraumatic, normocephalic - Eye Eye exam: Present: normal appearance, EOMI. Absent: nystagmus - ENT ENT exam: Present: normal exam, normal orophraynx, mucous membranes moist, normal external ear exam - Neck Neck exam: Present: normal inspection, full ROM. Absent: tenderness, meningismus - Respiratory Respiratory exam: Present: normal lung sounds bilaterally. Absent: respiratory distress, wheezes, rales, rhonchi, stridor, decreased breath sounds - Cardiovascular Cardiovascular Exam: Present: regular rate, normal rhythm, normal heart sounds. Absent: bradycardia, tachycardia, irregular rhythm, systolic murmur, diastolic murmur, rubs, gallop - GI/Abdominal GI/Abdominal exam: Present: soft. Absent: distended, tenderness, guarding, rebound, rigid, pulsatile mass - Rectal Rectal exam: Present: deferred - Extremities Exam Extremities exam: Present: full ROM, other (2+ pulses noted in the bilateral up per and lower extremities. There is no palpable cord. negative Homans sign. Muscular compartments are soft. The pelvis is stable.). Absent: normal inspection (Chronic appearing scars noted in the upper extremities.), pedal edema, calf tenderness - Back Exam Back exam: Present: normal inspection, full ROM. Absent: tenderness, CVA tenderness (R), CVA tenderness (L), paraspinal tenderness, vertebral tenderness - Neurological Exam Neurological exam: Present: alert, oriented X3, normal gait, other (No facial droop. Tongue midline. Extraocular movements intact bilaterally. Facial sensation intact to light touch in V1, V2, V3 distribution bilaterally. 5 and a 5 strength in 4 extremities. Sensation intact to light touch in 4 extremities.). Absent: motor sensory deficit - Psychiatric Psychiatric exam: Present: anxious - Skin Skin exam: Present: warm, dry, intact, normal color. Absent: rash ED Course Vital Signs 06/07/21 06/07/21 02:49 05:20 Temperature 97.8 F Pulse Rate 99 H Respiratory 16 Rate Blood Pressure 168/103 [Right] O2 Sat by Pulse 99 99 Oximetry - Reevaluation(s) Reevaluation #1: 06/07/21 03:42 Differential diagnosis, including but not limited to: Medical clearance for psychiatric placement, hallucinations, schizophrenia, bipolar disorder, chronic hypertension Assessment and plan: 40-year-old gentleman, who is afebrile, with reassuring vital signs, with exception of chronic hypertension, who is anxious but cooperative, presenting with psychosis, manifested by hallucinations and resolved suicidality. The patient is placed on a 1013. Home medications will be continued. Appropriate screening laboratory studies will be ordered. Psychiatric consultation is requested. COVID swab is ordered, the ER will follow along as the patient provides results for COVID swab. I discussed this with the patient. He is agreeable to the plan of care. Continue home metoprolol. 06/07/21 05:36 Laboratory studies are unremarkable. Psychiatric consultation is pending. The emergency room will follow along as the patient provides a urinalysis, drug screen and COVID swab. Patient denies urinary symptoms, and does not have COVID symptoms. Therefore, urinalysis and COVID swab will not change emergency room management. Neither will urine drug screen. At this point in time, the patient does not appear to have an immediate medical contraindication to psychiatric admission, evaluation, consultation and placement. ED Medical Decision Making - Lab Data Result diagrams: 06/07/21 04:22 06/07/21 04:22 Vital Signs 06/07/21 02:49 Temperature 97.8 F Pulse Rate 99 H Respiratory 16 Rate Blood Pressure 168/103 [Right] O2 Sat by Pulse 99 Oximetry Lab Results 06/07/21 06/07/21 06/07/21 Range/Units 04: 04: 04:22 WBC (4.5-11.0) K/mm3 RBC (3.65-5.03) M/mm3 Hgb (11.8-15.2) gm/dl Hct (35.5-45.6) % MCV (84-94) fl MCH (28-32) pg MCHC (32-34) % RDW (13.2-15.2) % Plt Count (140-440) K/mm3 Sodium 139 (137-145) mmol/L Potassium 4.9 (3.6-5.0) mmol/L Chloride 100.1 (98-107) mmol/L Carbon Dioxide 22 (22-30) mmol/L Anion Gap 22 mmol/L BUN 18 (9-20) mg/dL Creatinine 1.3 (0.8-1.3) mg/dL Estimated GFR > 60 ml/min BUN/Creatinine Ratio 14 % Glucose 88 (75-100) mg/dL Calcium 10.0 (8.4-10.2) mg/dL Salicylates < 0.3 L (2.8-20.0) mg/dL Acetaminophen 5.0 L (10.0-30.0) ug/mL Valproic Acid < 2.8 L (50-100) ug/mL [place] 0.1 (0.0-1.2) mmol/L Plasma/Serum Alcohol (0-0.07) % 06/07/21 06/07/21 Range/Units 04: 04:22 WBC 9.2 (4.5-11.0) K/mm3 RBC 5.48 H (3.65-5.03) M/mm3 Hgb 15.9 H (11.8-15.2) gm/dl Hct 47.0 H (35.5-45.6) % MCV 86 (84-94) fl MCH 29 (28-32) pg MCHC 34 (32-34) % RDW 13.4 (13.2-15.2) % Plt Count 197 (140-440) K/mm3 Sodium (137-145) mmol/L Potassium (3.6-5.0) mmol/L Chloride (98-107) mmol/L Carbon Dioxide (22-30) mmol/L Anion Gap mmol/L BUN (9-20) mg/dL Creatinine (0.8-1.3) mg/dL Estimated GFR ml/min BUN/Creatinine Ratio % Glucose (75-100) mg/dL Calcium (8.4-10.2) mg/dL Salicylates (2.8-20.0) mg/dL Acetaminophen (10.0-30.0) ug/mL Valproic Acid (50-100) ug/mL [place] (0.0-1.2) mmol/L Plasma/Serum Alcohol < 0.01 (0-0.07) % Critical care attestation.: If time is entered above; I have spent that time in minutes in the direct care of this critically ill patient, excluding procedure time. ED Disposition Clinical Impression: Medical clearance for psychiatric admission, Elevated blood pressure reading Disposition: 66 [facility] Is pt being admited?: No Does the pt Need Aspirin: No Condition: Good Referrals: PRIMARY CARE, [Primary Care Provider] - 3-5 Days
[2021-06-07 04:49] LABS: Hemoglobin 15.9 gm/dl (11.8-15.2); Mean Corpuscular HGB Conc 34 % (32-34); Mean Corpuscular Volume 86 fl (84-94); Platelet Count 197 K/mm3 (140-440); Red Blood Count 5.48 M/mm3 (3.65-5.03); Red Cell Distribution Width 13.4 % (13.2-15.2)
[2021-06-07 05:09] LABS: BUN/Creatinine Ratio 14; Blood Urea Nitrogen 18 mg/dL (9-20); Hemolysis Index 7
[2021-06-07] MEDS ORDERED: METOPROLOL TARTRATE 25 MG TAB PO SCH (10:00)
--- NOTE | 2021-06-07 10:28 | Consultation ---
History of Present Illness - Reason for Consult Consult date: 06/07/21 Reason for consult: relapse - History of Present Psychiatric Illness The patient was seen today. He is known to me from previous visits. The patient says he relapsed on drugs. When asking what drugs did he relapse on, he says "you don't want to know." I call out, his usual drugs of methamphetamines, crack cocaine, he replies "yes." He says he has been off his meds and never follow up with outpatient psychiatry. I ask the patient why, he says "I don't know." He says he has a history of paranoid schizophrenia. The patient currently denies SI/HI or hallucinations of any kind. He is asking for rehab again. 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 Access to guns/weapons: denies Education: 12th grade History of Abuse: denies Legal History: denies REVIEW OF SYSTEMS Constitutional: Negative for weight loss ENT: Negative for stridor Respiratory: Negative for cough or hemoptysis All other systems reviewed and are negative MENTAL STATUS EXAMINATION General Appearance and Behavior: Age appropriate, wearing appropriate clothes, cooperative polite with questioning, good eye contact, cooperative Cooperation: cooperative Psychomotor Behavior: Psychomotor normal Mood: ok Affect and affective range: congruent with stated mood Thought Process: goal directed Thought Content: None Speech: Normal volume, Regular rate and rhythm Suicidal Ideation: Denies Homicidal Ideation: Denies hallucination: Denies Delusions: None elicited Impulse Control: Questionable Insight and Judgment: Poor Memory: Intact Attention: Divided Orientation: Alert and oriented Diagnoses: Polysubstance Addiction Noncompliance with medical regimen and other treatments Treatment Plan d/c 1013 Zyprexa 10mg po daily Zoloft 50mg po daily Sitter: Per primary Medical: Per primary Disposition: Do not recommend acute psychiatric inpatient treatment The patient is to abstain from all illicit drug use The supervisor fitting to give the patient all necessary resources including drug rehab Will sign off. Thanks Case staffed with Dr. Mims. Medications and Allergies Allergies Allergy/AdvReac Type Severity Reaction Status Date / Time No Known Allergies Allergy Verified 06/09/15 00:02 Home Medications Medication Instructions Recorded Confirmed Last Taken Type Aspirin EC [Halfprin EC] 81 mg PO QDAY #30 tablet. 07/04/16 09/07/20 2 Days Ago Rx ~08/18/19 81 Sertraline [Zoloft] 50 mg PO QDAY #30 tablet 07/04/16 09/07/20 1 Day Ago Rx ~08/19/19 50 AtorvaSTATin [Lipitor] 40 mg PO QHS #30 tablet 12/01/16 09/07/20 2 Days Ago Rx ~08/18/19 40 Metoprolol [Lopressor] 25 mg PO DAILY 07/08/19 09/07/20 2 Days Ago History ~08/18/19 25 Cyclobenzaprine [Flexeril] 10 mg PO Q8H PRN #15 tablet 07/20/19 09/07/20 2 Days Ago Rx ~08/18/19 Ibuprofen [Motrin] 800 mg PO Q8HR PRN #24 tablet 07/20/19 09/07/20 2 Days Ago Rx ~08/18/19 800 ARIPiprazole [Abilify TAB] 15 mg PO DAILY #30 tablet 03/06/20 09/07/20 Unknown Rx DOXYCYCLINE Hyclate [Vibramycin] 100 mg PO Q12HR #14 capsule 06/19/20 09/07/20 Unknown Rx Sulfamethoxazole/Trimethoprim 1 each PO BID #10 tablet 09/08/20 Unknown Rx [Bactrim DS TAB] Valproic Acid [Depakene] 500 mg PO BID #60 capsule 09/08/20 Unknown Rx OLANzapine [ZyPREXA] 10 mg PO DAILY #30 tablet 06/07/21 Unknown Rx Sertraline [Zoloft] 50 mg PO DAILY #30 tablet 06/07/21 Unknown Rx Active Meds: Active Medications Alprazolam (Alprazolam 0.5 Mg Tab) 0.5 mg PO Q6HR PRN PRN Reason: Anxiety Atorvastatin Calcium (Atorvastatin 40 Mg Tab) 40 mg PO QHS RONIT Haloperidol Lactate (Haloperidol Lactate 5 Mg/1 Ml Inj) 5 mg IM Q6HR PRN PRN Reason: Agitation Lorazepam (Lorazepam 2 Mg/Ml Vial) 2 mg IM Q4HR PRN PRN Reason: Agitation Metoprolol Tartrate (Metoprolol Tartrate 25 Mg Tab) 25 mg PO BID RONIT Last Admin: 06/07/21 09:52 Dose: 25 mg Mental Status Exam - Vital signs Last Vital Signs Temp 97.8 F 06/07/21 02:49 Pulse 99 H 06/07/21 02:49 Resp 16 06/07/21 02:49 BP 168/103 06/07/21 02:49 Pulse Ox 99 06/07/21 05:20 Results Result Diagrams: 06/07/21 04:22 06/07/21 04:22 Abnormal lab results 06/07/21 06/07/21 06/07/21 Range/Units 04: 04:22 04:22 RBC 5.48 H (3.65-5.03) M/mm3 Hgb 15.9 H (11.8-15.2) gm/dl Hct 47.0 H (35.5-45.6) % Salicylates < 0.3 L (2.8-20.0) mg/dL Acetaminophen 5.0 L (10.0-30.0) ug/mL Valproic Acid < 2.8 L (50-100) ug/mL All other labs normal.
[2021-06-07 11:03] VITALS: BP 147/80
== END 2021-06-07 11:45 | disposition home or self-care (01) ==
LOC: EEVIPCON 02:46 → ED 02:46
DX: Z13.30 Encounter for screening examination for mental health and behavioral disorders, unspecified (principal); I10 Essential (primary) hypertension; Z86.73 Personal history of transient ischemic attack (TIA), and cerebral infarction without residual deficits; Z79.899 Other long term (current) drug therapy; Z98.890 Other specified postprocedural states; Z20.822 Contact with and (suspected) exposure to COVID-19
CPT/HCPCS: 36415; 80048; 80164; 80178; 85027; 99284; U0003; 80320; G0480